=== PATIENT | male | born 1960 | race Caucasian/White ===

== ENCOUNTER 2019-03-04 07:39 | Day surgery (SDC) | payer OTHER ==
[2019-03-04] MEDS ORDERED: Morphine 4 MG/ML VIAL ONE (08:20)
[2019-03-04] MEDS ORDERED: Ondansetron PF 4 MG/2 ML Vial ONE (08:20)
[2019-03-04] MEDS ORDERED: Multivitamins, Adult 10 ML, Thiamine HCl 100 MG, Folic Acid 1 MG in Dextrose 5 %-0.45 %... IV SCH (09:00)
--- NOTE | 2019-03-04 09:27 | RAD ---
LEFT ANKLE 3 VIEWS: HISTORY: Fall, left ankle deformity and pain. FINDINGS/IMPRESSION: A trimalleolar fracture and dislocation is seen at the ankle joint. POS: TPC
[2019-03-04] MEDS ORDERED: Propofol 1,000 MG/100 ML VIAL IV ONE (09:41)
[2019-03-04] MEDS ORDERED: PROPOFOL 20 ML ONE (09:42)
[2019-03-04 09:43] LABS: #Basophils 0.1 thou/uL (0.0-0.2); #Eosinphils 0.1 thou/uL (0.0-0.7); #Lymphocytes 0.9 thou/uL (1.20-3.40); #Monocytes 0.8 thou/uL (0.11-0.59); #Neutrophils 8.1 thou/uL (1.40-6.50); %Basophils 0.7 % (0.0-1.0); %Eosinophils 0.5 % (0.0-10.0); %Lymphocytes 9.4 % (21.0-51.0); %Monocytes 8.2 % (0.0-10.0); %Neutrophils 81.2 % (42.0-75.0); Hemoglobin 12.3 g/dL (14.0-18.0); Mean Corpuscular HGB CONC 34.8 g/dL (32.0-36.0); Mean Corpuscular Hemoglobin 41.2 pg (27.0-31.0); Mean Platelet Volume 8.1 fL (7.4-10.4); Platelet Count 170 thou/uL (130-400); RBC Distribution Width 12.4 % (11.5-14.5); Red Blood Cell (RBC) Count 2.99 mill/uL (4.70-6.10); White Blood Cell (WBC) Count 9.9 thou/uL (4.8-10.8)
[2019-03-04] MEDS ORDERED: Propofol 500 MG/50 ML VIAL ONE (09:43)
[2019-03-04 09:46] LABS: INR-International Normal Ratio 1.2; PTT 34.4 SEC (22.9-36.1); Prothrombin Time 15.1 SEC (12.0-14.7)
[2019-03-04 09:59] LABS: ALT (SGPT) 43 U/L (8-55); AST (SGOT) 118 U/L (5-34); Albumin 3.9 g/dL (3.5-5.0); Alkaline Phosphatase 91 U/L (40-150); Anion Gap 16 mmol/L (10-20); BUN (Urea Nitrogen) 5 mg/dL (8.4-25.7); Calc. Creatinine Clearance 0 mL/min (70-130); Calcium 8.4 mg/dL (7.8-10.44); Carbon Dioxide 22 mmol/L (22-29); Chloride 99 mmol/L (98-107); Estimated GFR-MDRD Greater than 90; Globulin 2.9 g/dL (2.4-3.5); Glucose 100 mg/dL (70-105); MDiff Complete? YES; Macrocytosis MODERATE=16-30 cells (100X) (0-5/hpf); Platelet Morphology Comment Appears Adequate; Potassium 3.9 mmol/L (3.5-5.1); Protein, Total 6.8 g/dL (6.0-8.3); Sodium 133 mmol/L (136-145)
--- NOTE | 2019-03-04 10:39 | RAD ---
Exam:3 views left ankle HISTORY: Fracture. Deformity. Status post reduction. COMPARISON: None FINDINGS: Interval placement of external cast at the level of the left ankle. Tried malleolus fractur e is redemonstrated. Mild step-off deformity of the medial and lateral malleolus is noted. Associated soft tissue swelling. Alignment has improved. IMPRESSION: 1. Interval reduction with improved alignment. 2. Interval placement of external cast
[2019-03-04] MEDS ORDERED: Morphine 2 MG/ML SYRINGE ONE (10:48)
[2019-03-04] MEDS ORDERED: Fentanyl 100 MCG/2 ML VIAL ONE ×2 (12:24→12:44)
[2019-03-04] MEDS ORDERED: Midazolam HCl 2 mg/2 ml Vial ONE (12:24)
[2019-03-04] MEDS ORDERED: Clindamycin/D5W 900 mg/50 ml Premix Bag ONE (12:28)
[2019-03-04] MEDS ORDERED: Bupivacaine HCl 0.5%/Epinephrine 1:200,000/PF 30 ml Vial ONE (13:05)
--- NOTE | 2019-03-04 13:49 | RAD ---
Exam: XR Ankle Lt 3 View STANDARD HISTORY: ORIF left ankle COMPARISON: 03/04/2019. Fluoroscopy: Total fluoroscopy time is 7.4 seconds with total dose of 0.26 mGy. FINDINGS/IMPRESSION: 2 intraoperative fluoroscopic images of the left ankle are submitted for interpretation. Provided stuart ges demonstrate a lateral plate and screws transfixing the previously seen fracture of the left fibula with 2 screws transfixing the fracture involving the medial malleolus. There is improvement in alignment of fracture fragments. There has also been interval reduction of previously noted dislocation at the tibiotalar joint. Fracture involving the posterior malleolus is again noted, but t here is improved alignment of the fracture. Correlation with intraoperative findings is recommended.
--- NOTE | 2019-03-04 15:35 | OP ---
DATE OF PROCEDURE: 03/04/2019 OPERATION: Open reduction and internal fixation of left trimalleolar ankle fracture. PREOPERATIVE DIAGNOSIS: Left trimalleolar ankle fracture. POSTOPERATIVE DIAGNOSIS: Left trimalleolar ankle fracture. COMPLICATIONS: None. ESTIMATED BLOOD LOSS: Minimal. GASOLINE ENGINE ASSEMBLER: Arnold Fuentes PA-C IMPLANT: Synthes 6-hole 1/3 tubular plate with multiple nonlocking screws and two 4.0 partially-threaded cancellous screws. INDICATIONS: Mr. Resendez is a 58-year-old male who fell and fractured his ankle. He was indicated for open reduction and internal fixation to restore anatomic alignment and promote healing and prevent complications. Risks have been reviewed. He elected to proceed with the operation. DESCRIPTION OF PROCEDURE: Mr. Resendez was identified in the preoperative holding area. His correct extremity was marked. He was carried to the operating room. He was positioned supine. General anesthesia was induced. A multidisciplinary time-out was performed. The left lower extremity was prepped and draped in sterile fashion. We began the procedure with a lateral approach to the fibula, dissecting down through the subcutaneous tissues to the fascia, which was opened. We exposed the bony fracture. We cleared the bony edges. We reduced the fracture into an anatomic position. A 6-hole plate was placed, 6 screws were placed, locking the plate to the bone. We took x-ray images, confirming this. At this point, we then moved to the medial side, made an incision over the medial malleolus. We dissected down through the subcutaneous tissues to the medial malleolar fracture fragment. We irrigated and reduced the fracture back into its anatomic position. We then placed two 4.0 partially- threaded screws, holding our reduction. We took x-ray images again. There were no complications. We thoroughly irrigated with copious lavage. At this point, we closed with 2-0 Vicryl suture followed by 3-0 nylon and a sterile dressing and a splint was placed. Job ID: [id number]
[2019-03-04] MEDS ORDERED: HYDROcodone/Acetaminophen 5/325 mg Tablet ONE (16:21)
== END 2019-03-04 17:20 | disposition home or self-care (01) ==
LOC: ERS 07:39 → SDC 11:53 → ERS 11:54 → SDC 17:20
PROVIDERS: ATTEND Orthopaedic Surgery
PROC: 0QSH04Z Reposition Left Tibia with Internal Fixation Device, Open Approach (ICD-10-PCS; principal; 2019-03-04)
DX: S82.852A Displaced trimalleolar fracture of left lower leg, initial encounter for closed fracture (principal); E78.5 Hyperlipidemia, unspecified; I10 Essential (primary) hypertension; F17.220 Nicotine dependence, chewing tobacco, uncomplicated; Z88.0 Allergy status to penicillin; W01.0XXA Fall on same level from slipping, tripping and stumbling without subsequent striking against object, initial encounter
CPT/HCPCS: 76000; 80053; 84484; 85025; 85610; 85730; 93005; C1713; J0670; J2250; J2270; J2405; J2704; J3010; J3411; J3490; J7042

== ENCOUNTER 2020-05-24 19:27 | Inpatient (IN) | payer OTHER ==
[~2020-05-24 19:27] MED LIST: Iopamidol-370 76% 500 ML 1 ML ONE
--- NOTE | 2020-05-24 21:11 | CT ---
CT OF THE ABDOMEN AND PELVIS 05/24/20 HISTORY: Jaundice, abdominal distention, liver disease. TECHNIQUE: Axial CT imaging at 5 mm intervals from the lung bases through the pubic symphysis with IV contrast. Coronal and sagittal reformatted imaging obtained. FINDINGS: There are subtle patchy areas of focal pulmonary parenchymal opacity/ground glass opacity with mass- like configuration within the inferior right lower lobe on axial image 11 and within the superior asp ects of the right lower lobe on image 1. Similar patchy opacity noted within the right middle lobe on image 4. No free intraperitoneal air or fluid is seen. The hepatic parenchyma is heterogeneous and d emonstrates peripheral irregularity suggesting cirrhosis. Numerous tiny hypodense nodules are noted w ithin the liver, too small to characterize. Splenic calcifications are noted. Numerous varices are no hernan within the gastrohepatic ligament, the paraesophageal region, and in the region of the splenic hi lum. The left renal vein is dilated suggesting a splenorenal shunt on the left. The gallbladder conta ins significant debris/sludge as well as areas of calcified stones. Gallbladder is not optimally asse ssed on this examination. There may be mild hazy increased density within the fat adjacent to the ga llbladder which could signify gallbladder inflammatory change or could be related to hepatocellular d isease. The adrenal glands and the kidneys appear grossly unremarkable. The large and small bowel is not optimally assessed without oral contrast media. There are a few scat tered diverticula identified within the sigmoid colon with no evidence for diverticulitis. No evidenc e for appendicitis is seen. There is no evidence for bowel obstruction. Intrahepatic and extrahepatic portal vein is patent. Splenic vein and superior mesenteric vein are patent. Numerous varices are noted within the retroperi toneum, especially in the left para-aortic region. No abdominal or pelvic lymphadenopathy. Review of the osseous structures demonstrates no worrisome lytic or blastic bone lesion. IMPRESSION: 1. Cirrhotic configuration of the liver with multifocal upper abdominal varices. 2. Abnormal appearance of the gallbladder with sludge and stones. If there is concern for acute cholecystitis, ultrasound suggested. Stranding of the fat adjacent to the gallbladder may be present which could signify gallbladder inflammatory change or could simply be related to hepatocellular dise ase. 3. Areas of ground glass opacity are noted within the partially imaged right lung base. Findings may signify nonspecific infectious pneumonitis, including COVID 19. Clinical correlation is essentia l. In addition, a dedicated chest CT is advised for full assessment. Neoplasia is not excluded. Code T POS: [id number]
[2020-05-24] MEDS ORDERED: chlordiazePOXIDE HCl 25 MG CAP ONE (23:33)
--- NOTE | 2020-05-24 23:34 | ULT ---
Exam: Right upper quadrant ultrasound: HISTORY: Jaundice, abdominal distention. Acute liver failure. COMPARISON: CT abdomen on 05/24/2020 FINDINGS: Liver: Enlarged measuring 18 cm in craniocaudal dimensions. The liver is increased in echogenicity an d overall heterogeneous in appearance which was also noted on CT examination. Gallbladder: There is echogenic lobulated material within the dependent portion of the gallbladder candice men. This finding may be related to tumefactive sludge as opposed to actual gallbladder mass. The gallbladder wall is mildly thickened measuring 0.4 cm in thickness. No pericholecystic fluid is ident ified. No sonographic Merino's sign was elicited during the exam. Common bile duct: The common duct is normal in caliber measuring 0.6 cm in diameter. Pancreas: Limited visualized portions of the pancreas demonstrate a normal sonographic appearance. Right kidney: Right kidney demonstrates a normal sonographic appearance. The right kidney measures 1 0.9 cm in length. IVC: The visualized IVC demonstrates a normal sonographic appearance. Main portal vein was imaged and on Doppler evaluation, there does appear to be hepatofugal flow in th e main portal vein. IMPRESSION: 1. Hepatomegaly with findings suggestive of fatty infiltration. In addition, there is generalized het erogeneity of the liver. The heterogeneity was present on prior CT exam with numerous tiny hypodensities seen within the liver on CT exam. There is suggestive of cirrhotic morphology of the li tray on CT exam which is less well delineated on ultrasound evaluation. 2. Echogenic material within the dependent portion of the gallbladder lumen. This may be secondary to tumefactive sludge as opposed to gallbladder mass. Calculi seen in the gallbladder lumen on CT exam are not well delineated on this exam. Gallbladder wall is slightly thickened. Short interval fol low-up ultrasound examination of the gallbladder is recommended. 3. Hepatofugal flow in the main portal vein suggesting portal hypertension.
[2020-05-24 23:59] LABS: Troponin I 0.026 ng/mL (< 0.028)
[2020-05-25] MEDS ORDERED: Lorazepam 1 MG TAB PO PRN (00:36)
[2020-05-25] MEDS: Sodium Chloride 0.9% 1,000 ML IV SCH ×2 (01:07→21:21)
[2020-05-25 02:19] LABS: Troponin I 0.019 ng/mL (< 0.028)
--- NOTE | 2020-05-25 02:39 | HP ---
REASON FOR ADMISSION: Jaundice. HISTORY OF PRESENT ILLNESS: This is a 59-year-old male patient, who is known to be an alcoholic. Recently diagnosed with two types of rash, one on his right lower extremity considered as a fungal infection, treated with fluconazole and a rash that started in his left upper quadrant area extending to the back, also right upper quadrant area extending to the back as well considered as possibly zoster. He was started on acyclovir. He did not note any much improvement in the rash on his legs, so he has used clotrimazole cream, which he said it helped. Then, he was noted to be more jaundiced. He was prompted by his girlfriend's friend to present to the ER where he was found to have elevated LFTs. Subsequently, transferred to our emergency room. The patient denies any fevers or chills. Denies any abdominal discomfort. Denies any melena or hematemesis. I did review his records and his last admission to the hospital was in February 2019 for left trimalleolar ankle fracture, status post open reduction and internal fixation. PAST MEDICAL HISTORY: 1. High blood pressure. 2. Depression. 3. Allergic rhinitis. SOCIAL HISTORY: He dips, does not smoke cigarettes. He drinks alcohol on a daily basis. He is an alcoholic. His last drink was this morning. ALLERGIES: TO PENICILLIN. FAMILY HISTORY: Reviewed, found to be negative for premature coronary artery disease. REVIEW OF SYSTEMS: All systems reviewed except the above mentioned, found to be negative. PHYSICAL EXAMINATION: GENERAL: Awake, alert, oriented, does not appear in distress. VITAL SIGNS: His blood pressure is 142/74, heart rate of 102, temperature is 98.4, saturating 99% on room air. HEENT: Head is nontraumatic, normocephalic. Pupils equal, reactive. Extraocular movements are intact. He does have icteric sclera, moderately injected conjunctivae. Oral mucosa normal. Nasal mucosa normal. NECK: Supple. No adenopathy. No murmur. Thyroid not palpable. Trachea is midline. No supraclavicular adenopathy. HEART: S1, S2 regular. No murmur. No gallop. No friction rubs. No displacement of PMI. LUNGS: Clear to auscultation bilaterally. No wheezes, rhonchi, or crackles. ABDOMEN: Bowel sounds are positive. Abdomen is distended, but nontender. EXTREMITIES: He does have 1+ pitting edema in bilateral extremities. SKIN: He does have a flat macular rash around the right ankle area. It is not warm to touch. The skin appears to be dry in regards of the rash on the abdominal area does seem bilateral from the upper quadrants extending to the back, more so on the left than the right. It is confluent and macular in nature. Does not feel warm to touch. I do not see any vesicles or the lesions, but the patient claims that initially he had vesicular rash. NEURO: Cranial nerves II through XII within normal limits. Normal motor function. Normal sensory reflexes. LABORATORY DATA: Blood work shows WBC of 10.4, hemoglobin of 7.8, platelets of 85, previous hemoglobin was 13.7. Sodium 130, potassium 3.9, bicarb of 21, lactic acid of 3.8, total bilirubin 12.8, AST 68, ALT 29. BNP 397.2. Urinalysis shows ketones, large bilirubin. Hepatitis profile done in July, was negative. A chest x-ray shows mild vascular prominence, 10 mm nodular density near the left hilum that should have further followup once the patient is out of the acute phase. Abdominal ultrasound shows hepatomegaly with findings suggestive of fatty infiltration, generalized heterogeneity of the liver, suggestion of cirrhosis of the liver. Echogenic material within the dependent portion of the gallbladder lumen with calculi seen in the gallbladder lumen on CT exam. Gallbladder wall slightly thickened. CT of the abdomen shows cirrhotic configuration of the liver with multifocal upper abdominal varices. Abnormal appearance of the gallbladder with sludge and stone. If there is concern for acute cholecystitis, ultrasound suggested. Stranding of the fat adjacent to the gallbladder may be present, which could signify gallbladder inflammatory changes or could simply be related to hepatocellular disease. Area of ground-glass opacity is noted within the partially imaged right lung base may signify a nonspecific infectious pneumonitis, including COVID-19. Clinical correlation is essential. In addition, a dedicated chest CT is advised for full assessment. Neoplasia is not excluded. ASSESSMENT AND PLAN: This is a 59-year-old male patient, presenting with what appears to be liver failure in the setting of recent fluconazole intake and continued alcohol abuse. Neurology: The patient will be maintained on his antidepressive agents. Pulmonary: The patient does not have any pulmonary symptoms. Nevertheless, his CT of the abdomen did mention multiple abnormalities at the bases of his lungs, also possible nodule on chest x-ray. We will do a CT of the chest without contrast to further investigate these findings. Because of his alcoholism, he will be on IV thiamine, multivitamin and folic acid. We will have him on Ativan as needed for signs of withdrawal. Hematology: The patient appears to be anemic compared to his last blood work done in July, although he denies any evidence of melena or hematemesis. It is possible that he has been having gastrointestinal bleed. We will ask GI to assess him in the morning for the further input about his liver failure and his anemia or then he need to be scoped or not. On the other hand, his imaging did show gallbladder disease, possibly indicating cholecystitis, but clinically he is not exhibiting any symptoms that can be attributed to possible cholecystitis, so the findings could be possibly due to his liver cirrhosis/alcoholic hepatitis. Surgery was consulted by the ER physician and they will see him in the morning. No therapy for now was recommended. In regard of his rash, it does seems that he might have dermatitis. We will have him on hydrocortisone cream. I do not believe that he does have a fungal rash and I would not continue fluconazole since it might cause worsening of his LFTs. In regards of the rash in the abdominal area, it is possible that it is zoster. For that reason, we will resume acyclovir. It seems that the rash is healing and hydrocodone might help as well. Renal System, Electrolytes: The patient does have elevated lactic acid. We will hydrate him and then we will recheck his lactic acid in the morning. The patient will be a full code. Job ID: [id number]
[2020-05-25] MEDS ORDERED: Ondansetron ODT 4 MG TAB SL PRN (03:00)
[2020-05-25] MEDS ORDERED: Acetaminophen 325 MG TAB PO PRN (03:00)
[2020-05-25] MEDS ORDERED: Ondansetron PF 4 MG/2 ML Vial IVP PRN (03:00)
[2020-05-25 06:13] LABS: INR-International Normal Ratio 2.1; Prothrombin Time 23.9 sec (12.0-14.7)
[2020-05-25 06:14] LABS: PTT 52.8 sec (22.9-36.1)
[2020-05-25] MEDS ORDERED: Lorazepam 1 MG TAB ONE (06:20)
[2020-05-25 06:27] LABS: Lactic Acid 1.7 mmol/L (0.5-2.2)
[2020-05-25 06:31] LABS: ALT (SGPT) 25 U/L (8-55); AST (SGOT) 52 U/L (5-34); Albumin 3.2 g/dL (3.5-5.0); Alkaline Phosphatase 75 U/L (40-110); Anion Gap 14 mmol/L (10-20); BUN (Urea Nitrogen) 11 mg/dL (8.4-25.7); Bilirubin, Total 12.1 mg/dL (0.2-1.2); Calc. Creatinine Clearance 0 mL/min (70-130); Calcium 8.1 mg/dL (7.8-10.44); Carbon Dioxide 23 mmol/L (22-29); Chloride 95 mmol/L (98-107); Estimated GFR-MDRD Greater than 90; Globulin 3.6 g/dL (2.4-3.5); Glucose 136 mg/dL (70-105); Protein, Total 6.8 g/dL (6.0-8.3); Sodium 128 mmol/L (136-145)
[2020-05-25 06:34] LABS: Band 6 % (5-11); Eosinophils 3 % (0-10); Hemoglobin 7.1 g/dL (14.0-18.0); Lymphocytes 14 % (21-51); MDiff Complete? YES; Macrocytosis SLIGHT = 6-15 cells (100X) (0-5/hpf); Mean Corpuscular HGB CONC 32.8 g/dL (32.0-36.0); Mean Corpuscular Hemoglobin 46.5 pg (27.0-31.0); Mean Platelet Volume 8.6 fL (7.4-10.4); Monocytes 14 % (0-10); Neutrophil 63 % (42-75); Platelet Count 83 thou/uL (130-400); Platelet Morphology Comment Appears Decreased; RBC Distribution Width 15.1 % (11.5-14.5); Red Blood Cell (RBC) Count 1.53 mill/uL (4.70-6.10); Target Cells SLIGHT = 2-5 cells (100X) (0-1/hpf); White Blood Cell (WBC) Count 8.7 thou/uL (4.8-10.8)
--- NOTE | 2020-05-25 08:00 | CT ---
PRELIMINARY REPORT/[facility]/EMERGENCY AFTER HOURS PROCEDURE: EXAM: CT Chest Without Intravenous Contrast. CLINICAL HISTORY: Pt had a CT abd/pel done. CR report recommends dedicated CT Thorax exam. Changes at the lung bases on abd CT TECHNIQUE: Axial computed tomography images of the chest without intravenous contrast. COMPARISON: None provided. FINDINGS: LUNGS: Patchy groundglass opacities throughout the left upper lobe and right lung with more rounded opacitie s at the right lung base. Findings are compatible with multifocal pneumonia. PLEURAL SPACES: No pleural effusion. No pneumothorax. HEART AND MEDIASTINUM: Small coronary artery calcifications are present. The heart is normal in size. Calcified right hilar and mediastinal lymph nodes. LYMPH NODES: No lymphadenopathy. CHEST WALL AND UPPER ABDOMEN: Splenic calcifications are present, likely representing prior granulomatous disease. Contrast within the renal collecting systems, likely from prior CT abdomen and pelvis. BONES: No acute osseous abnormality. IMPRESSION: Patchy groundglass opacities throughout the left upper lobe and right lung with more rounded opacitie s at the right lung base. Findings are compatible with multifocal pneumonia. High confidence featur es of COVID-19 (in the appropriate clinical setting). Although other processes can cause a similar pa ttern, consider viral testing for confirmation of this possibility. ELECTRONICALLY SIGNED BY: Natacha Banks MD May 25, 2020 1:13:32 AM PRESS P[employer]ER This report is intended for review by the ordering physician only, in accordance of law. If you recei ve this report in error, please call [facility] at [phone]. FINAL REPORT EMERGENCY AFTER HOURS CT CHEST WITHOUT CONTRAST: There are bilateral patchy ground-glass type infiltrates which are more extensive in the left upper l obe, but are also seen in the right upper lobe and right lower lobe. I am in agreement with the preliminary report issued by [facility]. POS: AGW
[2020-05-25] MEDS ORDERED: Ibuprofen 200 MG TAB ONE (08:09)
[2020-05-25] MEDS: Ibuprofen 600 MG TAB PO PRN (08:17)
[2020-05-25 13:00] LABS: SARS-CoV-2 MS2 Positive; SARS-CoV-2 N Gene Negative; SARS-CoV-2 S Gene Negative; SARS-CoV-2 by NAA Not Detected (NotDetected); SARS-CoV-2 orf1ab Negative
--- NOTE | 2020-05-25 15:59 | PDOC.BPN ---
- Brief Progress Note Encounter Date: 05/25/20 Encounter Time: 15:57 59-year-old patient who is a known alcoholic was admitted to the hospital due to severe jaundice after he used an antifungal cream for rash on his legs. He arrived to the hospital where he was noted to be profoundly jaundiced with a total bilirubin of 12. His CT of the abdomen and pelvis showed evidence of liver cirrhosis, suspected gallbladder pathology and may be pneumonia with COVID-19 being in the differential. Placement in right now was that he was having withdrawal symptoms from alcohol. He is on the SHAN protocol.
[2020-05-25] MEDS: Lorazepam 1 MG TAB PO SCH ×2 (16:29→21:20)
[2020-05-25 16:30] LABS: Reticulocyte Count 5.1 % (0.5-1.5)
[2020-05-25 16:33] LABS: Hemoglobin 6.5 g/dL (14.0-18.0); Mean Corpuscular HGB CONC 33.6 g/dL (32.0-36.0); Mean Corpuscular Hemoglobin 46.5 pg (27.0-31.0); Mean Platelet Volume 9.1 fL (7.4-10.4); Platelet Count 76 thou/uL (130-400); RBC Distribution Width 15.1 % (11.5-14.5); White Blood Cell (WBC) Count 8.8 thou/uL (4.8-10.8)
[2020-05-25 16:38] LABS: Bilirubin Moderate (Negative); Blood, Urine Small (Negative); Glucose, Urine (Dipstick) 100 mg/dL (Negative); Ketone, Urine Negative (Negative); Leukocyte Negative (Negative); Nitrite Negative (Negative); Protein, Urine (Dipstick) Negative (Neg-Trace); Urobilinogen > or = 8.0 mg/dL (Less than 2)
[2020-05-25 16:44] LABS: Clarity Clear (Clear)
[2020-05-25 16:48] LABS: Bilirubin, Direct 3.5 mg/dL (0.1-0.3)
[2020-05-25 16:52] LABS: Bacteria/HPF None Seen HPF (None Seen); Squamous Epithelial None Seen HPF (0-3); WBC/HPF 0-3 HPF (0-3)
[2020-05-25 16:54] LABS: Urine Culture Reflex No No
[2020-05-25 17:00] LABS: Anisocytosis SLIGHT = 6-15 cells (100X) (0-5/hpf); Band 15 % (5-11); Eosinophils 15 % (0-10); Lymphocytes 8 % (21-51); MDiff Complete? YES; Macrocytosis MODERATE=16-30 cells (100X) (0-5/hpf); Monocytes 9 % (0-10); Neutrophil 52 % (42-75); Ovalocytes SLIGHT = 2-5 cells (100X) (0-1/hpf); Platelet Morphology Comment Appears Decreased; Polychromasia MODERATE = 3-4 cells (100X) (0-2/hpf); Schistocytes SLIGHT = 2-5 cells (100X) (0-1/hpf)
[2020-05-25] MEDS: Hydrocortisone 1% Cream 1.5 GM Packet TOP SCH ×2 (19:50→22:09)
[2020-05-25] MEDS: Folic Acid 1 MG TAB PO SCH (19:50)
[2020-05-25] MEDS: Multivitamin W/ Minerals 1 TAB PO SCH (19:51)
[2020-05-25] MEDS: Hydrocortisone 1% Cream 30 GM TUBE TOP SCH (22:11)
[2020-05-26] MEDS: Lorazepam 1 MG TAB PO SCH ×4 (03:34→22:08)
--- NOTE | 2020-05-26 08:25 | CON ---
DATE OF CONSULTATION: REASON FOR CONSULTATION: 1. Painless jaundice. 2. Severe anemia with no history of GI bleeding. HISTORY OF PRESENT ILLNESS: Oli Resendez is a 59-year-old male, who is a regular patient of Dr. Longo in [place]. The patient had history of chronic alcohol abuse over the years. He admits to drinking a large amount of alcohol throughout the day. The patient's last drink was yesterday morning. The patient denies any abdominal pain, nausea, or vomiting. No hematemesis. No history of hematochezia, back tarry stool, etc. No history nose bleeding, hematuria, or bleeding from the gums. The patient apparently was found to be deeply jaundiced. He was brought to the hospital yesterday. The patient had no right upper quadrant pain, fever, or chills. No abdominal pain. No nausea or vomiting. Going over the [facility], I have discovered that he was slightly jaundiced in 2019. At that time, his bilirubin was 2.4. He had mildly elevated LFTs consistent with alcoholic liver disease. The patient was never told of any liver disease from before. Although he has jaundice, his other liver function tests were basically normal. CEA is slightly elevated. He had abdominal sonogram and abdominal CAT scan. Both imaging studies show evidence of what appears to be liver cirrhosis and he has some echogenic material in gallbladder indicative of possibly gallstones or possibly biliary sludge. His common bile duct is normal. The patient also has anemia on admission. He is pancytopenic. His hemoglobin on admission showed cytopenia. His WBC count was 10,400, hemoglobin 7.8, hematocrit 23.3, MCV 133 and today is 142, platelet count is 83,000, polymorphs 63, lymphocytes 14, monocytes 14. mild anemia before, but it was in the range of around 12.3, 12.7, and 13.1. He also had elevated MCV in the previous lab studies. His platelet count was normal before until this admission. He tells me he had seen Dr. Tony Zavala a year ago and Dr. Longo saw him because of anemia. Dr. Zavala told him the anemia was because of alcoholic liver disease and advised to take some vitamins and also folic acid. The patient had no relevant history. Other clinical history includes recent onset rash over the lower extremity and also over the right flank and back. ALLERGIES: PENICILLIN. SOCIAL HISTORY: He is . He chews tobacco. Does not smoke cigarettes. History of chronic alcohol abuse over the years and drinks as much as he can. At times, he drinks as much as a gallon of whiskey over a 3-day period as per the . He also drank beer. No history of drug abuse. MEDICAL ILLNESS: 1. Hypertension. 2. Depression. 3. Allergic rhinitis. SURGERIES: Left ankle fracture, surgery by Dr. Bang in February of 2019. FAMILY HISTORY: There is no family history of liver disease. No family history of cancer, stroke, or heart disease. MEDICATIONS: Reviewed. REVIEW OF SYSTEMS: 10-point system review; CONSTITUTIONAL: No history of fever or chills. No weight loss. No history of any fatigue, tiredness, or change in exercise tolerance. HEENT: Head, no chronic headache, no syncope. Eyes, no diplopia, no impaired vision. ENT, no hearing loss. No nose bleed. No sore throat. NECK: No stiffness or any limitation of movement. LUNGS: No chronic coughing. No hemoptysis. No dyspnea. CARDIOVASCULAR SYSTEM: No chest pain. No palpitation. No dyspnea, orthopnea, PND. GASTROINTESTINAL: No abdominal pain. No nausea or vomiting. No history of hematochezia or any melena. GENITOURINARY: No dysuria, hematuria, or frequency of urination. MUSCULOSKELETAL: Nonrelevant. NEUROENDOCRINE: Nonrelevant. PSYCHIATRY: Nonrelevant. PHYSICAL EXAMINATION: GENERAL: He is awake, alert, communicative. He is deeply jaundiced. He has mild tremors of both hands. VITAL SIGNS: Stable. He is afebrile. Pulse is 100, blood pressure is 116/57. He is deeply jaundiced. His temperature spiked to 101 this morning. NECK: Supple. No adenitis or thyromegaly noted. CARDIOVASCULAR SYSTEM: Normal heart sounds. LUNGS: Clear to auscultation. ABDOMEN: Soft and nondistended. Liver is palpable below the right costal margin nontender. Spleen not palpable. No masses felt. Bowel sounds normal. EXTREMITIES: Reveal edema and also has erythematous skin rash over the lower extremities. He also had some skin rash over the right flank going to the back. This is something new over the last few days. CLINICAL IMPRESSION: 1. Alcoholic liver disease-liver cirrhosis. 2. Jaundice with near normal liver function tests, possibly includes hemolysis with drug-induced elevation of bilirubin level. 3. Anemia, profound. Anemia is macrocytic, MCV 142. Most likely has folate deficiency because of alcohol abuse. However, hemolysis has been ruled out and other causes like bone marrow dysfunction has been ruled out. 4. Chronic alcohol abuse. 5. Hypertension. 6. Allergic rhinitis. RECOMMENDATIONS: 1. Stool for Hemoccult blood testing x3. 2. Await hematology input from Dr. Tony Zavala. He has seen Dr. Tony Zavala before and I did talk to Dr. Zavala who will see the patient later on today. 3. Follow up H and H and transfuse p.r.n. 4. Detox regimen including folic acid, thiamine, and also Ativan 1 mg every 6 hours. 5. Possible endoscopy studies in the next couple of days. Job ID: [id number]
[2020-05-26] MEDS: Folic Acid 1 MG TAB PO SCH (09:57)
[2020-05-26] MEDS: Multivitamin W/ Minerals 1 TAB PO SCH (09:57)
[2020-05-26] MEDS: Hydrocortisone 1% Cream 30 GM TUBE TOP SCH ×2 (09:58→20:17)
[2020-05-26 12:46] LABS: Iron 90 ug/dL (65-175); Iron Binding Capacity, Total 89 mcg/dL (261-462)
[2020-05-26] MEDS: Ibuprofen 600 MG TAB PO PRN (15:52)
--- NOTE | 2020-05-26 16:41 | PDOC.HOSPP ---
- Subjective Encounter Date: 05/26/20 Encounter Time: 16:36 Subjective: Patient seen and evaluated. This 59-year-old male admitted for painless jaundice. He was evaluated earlier by GI services. He is now profoundly anemic with a hemoglobin down to 6. I went ahead and ordered for 2 units of packed red cells transfusion. He is sleepy but easily arousable. His son was at the bedside when I visited. Patient does follow-up with her gas leak tester and he has been consulted by the GI service. CT abdomen and pelvis done showed evidence of liver cirrhosis. There is also a concern for gallbladder stones and sludge. An ultrasound of his gallbladder was equivocal. I would like to get a HIDA scan. His total bilirubin is high and most of his LFTs are rather normal. His AST was 52 and ALT was 32. I would like to check his amylase and lipase levels. - Objective Vital Signs & Weight: Vital Signs (12 hours) Temp Pulse Pulse Resp BP BP Pulse Ox 05/26/20 15:52 101.3 F H 05/26/20 15:35 99.0 F 124 H 24 H 133/67 93 L 05/26/20 15:23 99.0 F 124 H 24 H 133/67 93 L 05/26/20 11:59 99 F 117 H 20 130/64 93 L 05/26/20 08:00 98 Weight Weight 211 lb 1 oz I&O: 05/25/20 05/26/20 05/27/20 06:59 06:59 06:59 Intake Total 1190 250 Balance 1190 250 Result Diagrams: 05/25/20 16:20 05/25/20 05:49 Radiology Reviewed by me: Yes EKG Reviewed by me: Yes Hospitalist ROS - Review of Systems ROS unobtainable: due to mental status Constitutional: reports: chills, weakness, malaise Respiratory: reports: shortness of breath, SOB with excertion Gastrointestinal: reports: nausea, abdominal pain Neurological: reports: weakness - Medication Medications: Active Medications Generic Name Dose Route Start Last Admin Trade Name Freq PRN Reason Stop Dose Admin Folic Acid 1 mg 05/25/20 09:00 05/26/20 09:57 Folic Acid 1 Mg Tab PO 1 mg DAILY LAURIE Administration Hydrocortisone/Aloe 1.5 gm 05/25/20 21:00 05/26/20 09:58 Hydrocortisone 1% Cream 30 Gm Tube TOP 1 applic BID LAURIE Administration Thiamine HCl 100 mg/ Sodium 51 mls @ 100 mls/hr 05/26/20 09:00 05/26/20 12:12 Chloride IVPB 51 mls Q24HR LAURIE Administration Sodium Chloride 1,000 mls @ 50 mls/hr 05/25/20 00:45 05/25/20 21:21 Normal Saline 0.9% IV 1,000 mls .Q20H LAURIE Administration Levofloxacin 750 mg/ Device 150 mls @ 100 mls/hr 05/25/20 16:00 05/25/20 16:29 IVPB 150 mls Q24HR LAURIE Administration Ibuprofen 600 mg 05/25/20 07:55 05/26/20 15:52 Ibuprofen 600 Mg Tab PO 600 mg Q6H PRN Administration Fever>101/(Mi/Mod/Sev) Pain Iron/Minerals/Multivitamins 1 tab 05/25/20 09:00 05/26/20 09:57 Multivitamin W/ Minerals 1 Tab PO 1 tab DAILY LAURIE Administration Lorazepam 1 mg 05/25/20 16:00 05/26/20 15:52 Lorazepam 1 Mg Tab PO 1 mg 0400,1000,1600,2200 LAURIE Administration Sodium Chloride 10 ml 05/25/20 09:00 05/26/20 09:58 Flush - Normal Saline 10 Ml Syringe IVF Not Given Q12HR LAURIE - Exam General Appearance: NAD, ill appearing Eye: PERRL ENT: normocephalic atraumatic, moist mucosa Neck: supple, no lymphadenopathy Heart: RRR, no murmur Respiratory: CTAB, normal percussion Gastrointestinal: soft, non-distended, distended Extremities: 1+ LE edema Neurological: cranial nerve grossly intact, normal sensation to touch, no weakness, no focal deficits Musculoskeletal: generalized weakness Psychiatric: somnolent Hosp A/P - Plan #1. Painless jaundice. Etiology appears to be secondary to chronic alcohol abuse. His CT abdomen and pelvis showed evidence of chronic liver disease. He does have stigmata of liver cirrhosis. We appreciate GI evaluation. CT abdomen and pelvis obtained on admission showed evidence of liver disease. He also has some gallbladder stones and sludge. He had fever earlier on admission. I wonder if he does have true acute cholecystitis. I will consider HIDA scan. I will make further recommendation pending further work-up. 2. Hyperbilirubinemia. Likely secondary to #1 above. 3. Chronic alcohol abuse. Patient is a known alcoholic. He has been counseled. He is on supportive care. 4. Suspected cholelithiasis. I am going to order for HIDA scan. 5. Anemia. Likely acute blood loss versus marrow suppression from chronic alcoholism. At this point we will transfuse him 2 units of packed red cells.
[2020-05-26] MEDS ORDERED: Furosemide 40 MG/4 ML VIAL SLOW IVP SCH (17:00)
[2020-05-26] MEDS ORDERED: Fluticasone Propionate Nasal Spray 16 gm Bottle NASAL PRN (17:40)
[2020-05-26] MEDS ORDERED: Clotrimazole 1% Cream 15 GM TUBE TOP PRN (17:41)
[2020-05-26] MEDS: Acyclovir 400 mg Tablet PO SCH (20:16)
[2020-05-26] MEDS ORDERED: Clotrimazole 1 % Cream 30 GM TUBE TOP PRN (20:23)
[2020-05-26] MEDS ORDERED: Clotrimazole 1% Cream 15 GM TUBE TOP SCH (21:00)
[2020-05-26] MEDS: Clotrimazole 1 % Cream 30 GM TUBE TOP SCH (22:08)
--- NOTE | 2020-05-26 22:46 | CON ---
DATE OF CONSULTATION: REASON FOR CONSULTATION: Macrocytic anemia. HISTORY OF PRESENT ILLNESS: Mr. Resendez is a gentleman with a known history of alcoholism and liver disease, who was admitted to this facility for severe jaundice and a bilirubin of 12. He also had a significant macrocytic anemia with a hemoglobin of 7.1 and an MCV of 142. He had recently tried fungal medication for a rash on his trunk and back. Mr. Resendez is a daily drinker. He has been seen by Dr. Zavala in 2019. His MCV at that time was 118, myelodysplastic syndrome was in the differential, but his lab values improved with reduced EtOH intake and felt that MDS was unlikely at his age, I felt this was all heavy alcohol abuse and liver disease. The patient's sodium was low at 128. His INR was slightly elevated at 2.1. He did undergo a CT scan of his chest, abdomen, and pelvis. He had a cirrhotic liver with multifocal abdominal varices. There was gallbladder sludge. He had a ground-glass opacities in his lung, worrisome for COVID pneumonia. I do not believe he has had any fevers. He also underwent an abdominal ultrasound. His liver was enlarged at 18 cm. He had portal hypertension. He is seen at bedside. His son is present. He is jaundiced. His mentation is depressed. He is on SHAN protocol as he is trembling and having withdrawal symptoms. His last drink was yesterday morning. PAST MEDICAL HISTORY: 1. Heavy alcohol use. 2. High blood pressure. 3. Depression. PAST SURGICAL HISTORY: None. ALLERGIES: PENICILLIN. HOME MEDICATIONS: 1. Bystolic. 2. Desloratadine. 3. Folic acid. 4. Lisinopril. 5. Effexor. FAMILY HISTORY: Noncontributory. SOCIAL HISTORY: , has 2 children, current everyday smoker and drinker. REVIEW OF SYSTEMS: Unable to obtain secondary to depressed mentation. PHYSICAL EXAMINATION: VITAL SIGNS: Temperature is 101.3, pulse is 124, respiratory rate 24, blood pressure is 133/67, he is 93% on room air. GENERAL: This is a jaundiced male, in no acute distress. HEENT: Normocephalic and atraumatic. NECK: Supple. CV: Regular rate and rhythm. He is tachycardic. LUNGS: Clear anterior. ABDOMEN: Distended. He does have palpable hepatomegaly. EXTREMITIES: No clubbing or cyanosis. SKIN: He is jaundiced. NEUROLOGIC: Noted withdrawal tremors in his upper extremities. PERTINENT LABORATORY DATA AND X-RAYS: Current WBCs are 8.8, hemoglobin 6.5, hematocrit 19.4, MCV is 139, platelet count is 76, 52% neutrophils, 15% bands, 8% lymphocytes. His retic count is 5.1. PT is 23.9, INR is 2.1, and PTT is 52.8. Sodium is 128, potassium 4.0, chloride 95, CO2 of 23, BUN is 11, creatinine 0.84, calcium 8.1. Iron is 90, TIBC is 89, ferritin is 3100. Total protein is 12, direct protein is 3.5, AST is 52, ALT is 25, alkaline phosphatase is 75, LDH is 291. Serum total protein is 6.8, albumin 3.2, globulin 3.6, B12 is 1135, folate is 1390. Urine shows moderate bilirubin. He is COVID-19 negative. RADIOLOGY: Per HPI. ASSESSMENT: 1. Macrocytic anemia. 2. Mild thrombocytopenia, likely secondary to portal hypertension. 3. Hyperbilirubinemia, possibly secondary to liver disease. DISCUSSION: The patient presented with elevated bilirubin and severe anemia. Hemolytic anemia is certainly on the differential. However, his LDH is only 291. His retic count is 5.1. He is Brenda negative. Dr. Zavala feels that this is likely secondary to liver disease. His low platelets are due to portal hypertension from his hepatomegaly. Should rule out a GI bleed. Guaiac stools are currently pending. The patient is on SHAN protocol for his withdrawal symptoms. We will continue to monitor his CBC on a daily basis and transfuse as needed. He did receive 1 unit of blood today. His son was updated at bedside. Thank you for the consult. Job ID: [id number]
[2020-05-27] MEDS: Sodium Chloride 0.9% 1,000 ML IV SCH (01:17)
[2020-05-27] MEDS: Lorazepam 1 MG TAB PO SCH ×3 (05:08→16:09)
[2020-05-27 05:21] LABS: ALT (SGPT) 19 U/L (8-55); AST (SGOT) 43 U/L (5-34); Albumin 2.9 g/dL (3.5-5.0); Alkaline Phosphatase 69 U/L (40-110); Anion Gap 14 mmol/L (10-20); BUN (Urea Nitrogen) 14 mg/dL (8.4-25.7); Bilirubin, Total 13.7 mg/dL (0.2-1.2); Calc. Creatinine Clearance 125 mL/min (70-130); Calcium 7.8 mg/dL (7.8-10.44); Carbon Dioxide 22 mmol/L (22-29); Chloride 99 mmol/L (98-107); Estimated GFR-MDRD Greater than 90; Globulin 3.2 g/dL (2.4-3.5); Glucose 97 mg/dL (70-105); Lipase 16 U/L (8-78); Potassium 4.3 mmol/L (3.5-5.1); Protein, Total 6.1 g/dL (6.0-8.3); Sodium 131 mmol/L (136-145)
--- NOTE | 2020-05-27 06:59 | PRG ---
DATE OF SERVICE: 05/26/2020 SUBJECTIVE: This is a 59-year-old male with history of chronic alcohol abuse, hospitalized two days ago with jaundice, painless. History of chronic alcohol abuse over the years and he continues to drink alcohol. He was found to have a bilirubin of 12.5 on admission, but his liver function tests are actually normal except for AST of 52. This is considered alcoholic liver disease. The patient has been taking some antifungal medications because of the skin rash. Also, there was some rash over the right flank and also left calf. Less erythematous. It is more diffuse. He is on acyclovir and clotrimazole cream . The patient is awake and somewhat sleepy. His girlfriend was here yesterday, today she is not here. The patient denied abdominal pain, nausea, or vomiting. I did talk to Dr. Tony Zavala yesterday, asked for a consult on Mr. Resendez and also a consult was put in the [facility] system. I do not see any Hematology evaluation until now. The patient's blood count has been dropping down further from 7.1 to 6.5. The hospitalist ordered 2 units of packed RBCs. The patient offers no complaints. OBJECTIVE: GENERAL: He is sleepy, however, is arousable. VITAL SIGNS: Temperature is 101 degrees Fahrenheit this afternoon, now temperature down to 98.9 degrees Fahrenheit, pulse is 96, blood pressure 144/70. CARDIOVASCULAR: Normal heart sounds. LUNGS: Clear to auscultation. ABDOMEN: Soft and nontender. Liver is enlarged. There is no splenomegaly. LABORATORY DATA: From today CBC; hemoglobin dropping to 6.5, hematocrit 19.4, MCV 139, platelet count is 76,000, polymorphs 52, bands 15, monocytes 9, lymphocytes 8, retic count is 5.1. His LDH has slightly elevated at 291. Vitamin B12 is normal at 1135, folic acid normal at 13.90. Bilirubin not done today, but most of bilirubin is indirect bilirubin. He had a CAT scan of the chest yesterday which showed some bilateral pulmonary infiltrates, but, however, his COVID-19 test is negative. CLINICAL IMPRESSION: 1. Liver cirrhosis due to alcohol abuse. 2. Alcohol withdrawal. 3. Bilateral pulmonary infiltrates, etiology unclear. 4. Fever today, again etiology unclear. 5. Thrombocytopenia, anemia with no history of any blood loss. stool for occult blood, but nothing has been done so far. RECOMMENDATIONS: 1. Transfuse as needed. 2. We would probably try to talk to Dr. Tony Zavala to see the patient again. 3. When he is stable enough, we will consider EGD and colonoscopy hopefully in the next couple of days. Job ID: [id number]
[2020-05-27 07:00] LABS: #Eosinphils 0.6 thou/uL (0.0-0.7); #Lymphocytes 1.4 thou/uL (1.20-3.40); #Monocytes 1.1 thou/uL (0.11-0.59); #Neutrophils 7.9 thou/uL (1.40-6.50); %Basophils 0.3 % (0.0-1.0); %Eosinophils 5.7 % (0.0-10.0); %Lymphocytes 12.6 % (21.0-51.0); %Monocytes 10.1 % (0.0-10.0); %Neutrophils 71.3 % (42.0-75.0); Anisocytosis MARKED = >30 cells (100X) (0-5/hpf); Band 24 % (5-11); Eosinophils 7 % (0-10); Hemoglobin 8.3 g/dL (14.0-18.0); Lymphocytes 8 % (21-51); MDiff Complete? YES; Mean Corpuscular HGB CONC 34.1 g/dL (32.0-36.0); Mean Corpuscular Hemoglobin 42.5 pg (27.0-31.0); Mean Platelet Volume 8.7 fL (7.4-10.4); Monocytes 13 % (0-10); Neutrophil 47 % (42-75); Platelet Count 80 thou/uL (130-400); Platelet Morphology Comment Appears Decreased; Polychromasia SLIGHT = 2-3 cells (100X) (0-2/hpf); RBC Distribution Width 25.2 % (11.5-14.5); Reactive Lymphocytes 1 % (0-10); Red Blood Cell (RBC) Count 1.96 mill/uL (4.70-6.10); White Blood Cell (WBC) Count 11.1 thou/uL (4.8-10.8)
[2020-05-27] MEDS: Acyclovir 400 mg Tablet PO SCH ×2 (09:37→15:08)
[2020-05-27] MEDS: Multivitamin W/ Minerals 1 TAB PO SCH (09:37)
[2020-05-27] MEDS: Hydrocortisone 1% Cream 30 GM TUBE TOP SCH ×2 (09:37→21:07)
[2020-05-27] MEDS: Nebivolol HCl 5 MG TAB PO SCH (09:37)
[2020-05-27] MEDS: Venlafaxine HCl XR 150 MG CAP PO SCH (09:37)
[2020-05-27] MEDS: Folic Acid 1 MG TAB PO SCH (09:37)
[2020-05-27] MEDS: Loratadine 10 MG TAB PO SCH (09:37)
[2020-05-27] MEDS: Lisinopril 10 MG TAB PO SCH (09:37)
[2020-05-27] MEDS: Clotrimazole 1 % Cream 30 GM TUBE TOP SCH ×2 (09:51→21:07)
[2020-05-27] MEDS ORDERED: Furosemide 100 MG/10 ML VIAL SLOW IVP SCH (10:15)
--- NOTE | 2020-05-27 11:42 | RAD ---
PORTABLE CHEST: Indications: Dyspnea, pneumonia. Comparison: Chest CT, 05-25-2020; portable chest 05-24-2020 FINDINGS: Diffuse bilateral infiltrates have significantly progressed since the portable from of 05-24-2020. The re are no ground glass diffuse ground glass opacities throughout the left lung and there are ground g lass opacities throughout the right lung with consolidation in the right lower lung. IMPRESSION: Diffuse bilateral infiltrates. POS: AH
--- NOTE | 2020-05-27 14:15 | PDOC.HOSPP ---
- Subjective Encounter Date: 05/27/20 Encounter Time: 14:14 Subjective: Mr. Resendez is a 59-year-old who is a chronic alcoholic who presented to the hospital after he was found to be severely jaundiced. His total bilirubin is elevated. His AST was also elevated but his ALT was normal. Amylase and lipase are within normal limits. He is being evaluated by the GI service. Hematology also saw him and felt that his indicis were related to his chronic alcohol use. He received 2 units of red cells for hemoglobin that was down to about 6. His blood count has improved some today. We ordered a HIDA scan to evaluate for potential gallbladder pathology. We will follow up on these results. His calculated MELD score is 28 with a 19.6% chance of mortality in 3 months. Will defer to GI about close follow-up with this unfortunate gentleman. - Objective Vital Signs & Weight: Vital Signs (12 hours) Temp Pulse Resp BP BP Pulse Ox 05/27/20 13:54 98.9 F 106 H 21 H 106/56 L 97 05/27/20 08:00 98.3 F 116 H 21 H 116/65 116/65 94 L 05/27/20 03:46 98.3 F 118 H 24 H 128/66 92 L Weight Weight 210 lb I&O: 05/26/20 05/27/20 05/28/20 06:59 06:59 06:59 Intake Total 1190 1350 Balance 1190 1350 Result Diagrams: 05/27/20 04:10 05/27/20 04:10 Radiology Reviewed by me: Yes EKG Reviewed by me: Yes Hospitalist ROS - Review of Systems Constitutional: reports: fever Respiratory: reports: SOB with excertion Gastrointestinal: reports: nausea - Medication Medications: Active Medications Generic Name Dose Route Start Last Admin Trade Name Freq PRN Reason Stop Dose Admin Acyclovir 400 mg 05/26/20 21:00 05/27/20 09:37 Acyclovir 400 Mg Tablet PO 05/27/20 15:01 400 mg TID LAURIE Administration Clotrimazole 0 gm 05/26/20 21:00 05/27/20 09:51 Clotrimazole 1 % Cream 30 Gm Tube TOP 1 applic BID LAURIE Administration Folic Acid 1 mg 05/25/20 09:00 05/27/20 09:37 Folic Acid 1 Mg Tab PO 1 mg DAILY LAURIE Administration Hydrocortisone/Aloe 1.5 gm 05/25/20 21:00 05/27/20 09:37 Hydrocortisone 1% Cream 30 Gm Tube TOP 1 applic BID LAURIE Administration Thiamine HCl 100 mg/ Sodium 51 mls @ 100 mls/hr 05/26/20 09:00 05/27/20 09:51 Chloride IVPB 51 mls Q24HR LAURIE Administration Ibuprofen 600 mg 05/25/20 07:55 05/26/20 15:52 Ibuprofen 600 Mg Tab PO 600 mg Q6H PRN Administration Fever>101/(Mi/Mod/Sev) Pain Iron/Minerals/Multivitamins 1 tab 05/25/20 09:00 05/27/20 09:37 Multivitamin W/ Minerals 1 Tab PO 1 tab DAILY LAURIE Administration Lisinopril 10 mg 05/27/20 09:00 05/27/20 09:37 Lisinopril 10 Mg Tab PO 10 mg DAILY LAURIE Administration Loratadine 10 mg 05/27/20 09:00 05/27/20 09:37 Loratadine 10 Mg Tab PO 10 mg QAM LAURIE Administration Lorazepam 1 mg 05/25/20 16:00 05/27/20 10:30 Lorazepam 1 Mg Tab PO Not Given 0400,1000,1600,2200 LAURIE Nebivolol 5 mg 05/27/20 09:00 05/27/20 09:37 Nebivolol Hcl 5 Mg Tab PO 5 mg DAILY LAURIE Administration Sodium Chloride 10 ml 05/25/20 09:00 05/27/20 09:37 Flush - Normal Saline 10 Ml Syringe IVF 10 ml Q12HR LAURIE Administration Venlafaxine HCl 150 mg 05/27/20 09:00 05/27/20 09:37 Venlafaxine Hcl Xr 150 Mg Cap PO 150 mg DAILY LAURIE Administration - Exam General Appearance: NAD, awake alert, ill appearing Eye: PERRL, scleral icterus ENT: normocephalic atraumatic, no oropharyngeal lesions, moist mucosa Neck: supple, symmetric, no JVD, no lymphadenopathy Heart: RRR, no murmur, no gallops, normal peripheral pulses Respiratory: CTAB, no wheezes, normal chest expansion Gastrointestinal: soft, non-tender, non-distended, normal bowel sounds, no palpable masses Extremities: 1+ LE edema Skin: normal turgor Neurological: cranial nerve grossly intact Musculoskeletal: normal tone, normal strength, no muscle wasting Psychiatric: normal affect, normal behavior, A&O x 3 Hosp A/P (1) Painless jaundice Code(s): R17 - UNSPECIFIED JAUNDICE Status: Acute Plan: Evaluation is ongoing. We appreciate GI services. (2) Liver cirrhosis, alcoholic Code(s): K70.30 - ALCOHOLIC CIRRHOSIS OF LIVER WITHOUT ASCITES Status: Acute Plan: Patient is now interested in quitting alcohol. He will probably need a rehab on discharge. He wants to go to a detox program. (3) Acquired hyperbilirubinemia Code(s): E80.6 - OTHER DISORDERS OF BILIRUBIN METABOLISM Status: Acute Plan: Secondary to alcohol abuse. (4) Cholelithiasis Code(s): K80.20 - CALCULUS OF GALLBLADDER W/O CHOLECYSTITIS W/O OBSTRUCTION Status: Acute Qualifiers: Cholelithiasis location: gallbladder Cholecystitis presence: without cholecystitis Plan: Follow-up on HIDA scan. - Plan old records reviewed/req #1. Painless jaundice. Etiology appears to be secondary to chronic alcohol abuse. His CT abdomen and pelvis showed evidence of chronic liver disease. He does have stigmata of liver cirrhosis. We appreciate GI evaluation. CT abdomen and pelvis obtained on admission showed evidence of liver disease. He also has some gallbladder stones and sludge. He had fever earlier on admission. I wonder if he does have true acute cholecystitis. I will consider HIDA scan. I will make further recommendation pending further work-up. 2. Hyperbilirubinemia. Likely secondary to #1 above. 3. Chronic alcohol abuse. Patient is a known alcoholic. He has been counseled. He is on supportive care. 4. Suspected cholelithiasis. I am going to order for HIDA scan. 05/27/2020. We will follow up on the results of the HIDA scan. 5. Anemia. Likely acute blood loss versus marrow suppression from chronic alcoholism. At this point we will transfuse him 2 units of packed red cells. #6. Alcohol induced liver cirrhosis. He has evidence of chronic alcohol abuse. He has cirrhosis. He is interested in quitting alcohol use. His calculated meld score is 28 with a 19.6% chance of mortality within the next 3 months. I will defer to GI service about further treatment.
[2020-05-27] MEDS ORDERED: Furosemide 40 MG/4 ML VIAL SLOW IVP SCH (22:00)
[2020-05-28 00:25] LABS: Actual Bicarbonate (HCO3a) 21.6 mEq/L (22-28); Base Excess (BEa) -1.4 mEq/L (-2.0 to +3.0); CO2 Tension 30.1 mmHg (35.0-45.0); Calcium, Ionized (arterial) 1.06 mmol/L (1.12-1.30); Carboxyhemoglobin (COHb) 1.6 gm% (0.0-3.0); Hemoglobin (Hb) 10.4 g/dL (14.0-18.0); Potassium - ABG Lab 3.81 mmol/L (3.70-5.30); pH, Arterial 7.47 (7.35-7.45)
[2020-05-28 00:36] LABS: O2 Tension (PaO2), arterial 53.9 mmHg (> 80.0); Puncture Site RR
[2020-05-28] MEDS ORDERED: Vancomycin 1 GM in Premix Bag 1 BAG IVPB SCH (00:43)
--- NOTE | 2020-05-28 00:59 | PDOC.EVN ---
Event Note - Event Note Event Note: informed by RN patient has been sob, he was given Lasix IV with no significant improvement. I came up to the bedside and assessed him. He looks tired and tachypneic. his repeat cxr is showing worsening bilateral infiltrate. A/P : possibly pneumonia , possible CHF will order BNP, cover with broad spectrum ATB, start BIPAP, cardiac enzymes.
[2020-05-28 01:09] LABS: Hemoglobin 8.1 g/dL (14.0-18.0); Mean Corpuscular HGB CONC 34.3 g/dL (32.0-36.0); Mean Platelet Volume 8.9 fL (7.4-10.4); Platelet Count 95 thou/uL (130-400); RBC Distribution Width 24.9 % (11.5-14.5); Red Blood Cell (RBC) Count 1.88 mill/uL (4.70-6.10); White Blood Cell (WBC) Count 13.2 thou/uL (4.8-10.8)
[2020-05-28 01:15] LABS: INR-International Normal Ratio 2.8; Prothrombin Time 30.4 sec (12.0-14.7)
[2020-05-28 01:22] LABS: ALT (SGPT) 20 U/L (8-55); AST (SGOT) 49 U/L (5-34); Albumin 2.7 g/dL (3.5-5.0); Alkaline Phosphatase 65 U/L (40-110); Anion Gap 14 mmol/L (10-20); BUN (Urea Nitrogen) 19 mg/dL (8.4-25.7); Bilirubin, Total 12.3 mg/dL (0.2-1.2); Calc. Creatinine Clearance 91 mL/min (70-130); Calcium 7.9 mg/dL (7.8-10.44); Carbon Dioxide 23 mmol/L (22-29); Chloride 98 mmol/L (98-107); Estimated GFR-MDRD 64; Globulin 3.2 g/dL (2.4-3.5); Glucose 106 mg/dL (70-105); Protein, Total 5.9 g/dL (6.0-8.3); Sodium 131 mmol/L (136-145)
[2020-05-28 01:25] LABS: Troponin I 0.018 ng/mL (< 0.028)
[2020-05-28 01:30] LABS: Anisocytosis MODERATE=16-30 cells (100X) (0-5/hpf); Band 32 % (5-11); Eosinophils 3 % (0-10); Lymphocytes 9 % (21-51); MDiff Complete? YES; Monocytes 6 % (0-10); Myelocyte 1 % (0-0); Neutrophil 49 % (42-75); Platelet Morphology Comment Appears Decreased
[2020-05-28] MEDS: Cefepime 2 GM in Sodium Chloride 0.9% 100 ML IVPB SCH ×3 (01:49→17:57)
[2020-05-28] MEDS ORDERED: Vancomycin 1.5 GRAM/300 ML BAG 1.5 GM in Premix Bag 1 BAG IVPB SCH ×2 (03:00→04:00)
[2020-05-28] MEDS ORDERED: Acetaminophen 325 MG TAB PO SCH (03:45)
[2020-05-28 04:01] LABS: ALT (SGPT) 19 U/L (8-55); AST (SGOT) 46 U/L (5-34); Albumin 2.8 g/dL (3.5-5.0); Alkaline Phosphatase 64 U/L (40-110); Anion Gap 13 mmol/L (10-20); BUN (Urea Nitrogen) 20 mg/dL (8.4-25.7); Bilirubin, Total 12.3 mg/dL (0.2-1.2); Calc. Creatinine Clearance 80 mL/min (70-130); Carbon Dioxide 25 mmol/L (22-29); Chloride 98 mmol/L (98-107); Estimated GFR-MDRD 55; Globulin 3.1 g/dL (2.4-3.5); Glucose 102 mg/dL (70-105); Protein, Total 5.9 g/dL (6.0-8.3); Sodium 132 mmol/L (136-145)
[2020-05-28 04:07] LABS: Anisocytosis MODERATE=16-30 cells (100X) (0-5/hpf); Band 31 % (5-11); Eosinophils 1 % (0-10); Hemoglobin 8.2 g/dL (14.0-18.0); Lymphocytes 9 % (21-51); MDiff Complete? YES; Mean Corpuscular Hemoglobin 42.4 pg (27.0-31.0); Monocytes 7 % (0-10); Neutrophil 52 % (42-75); Nucleated RBC 1 % (0); Platelet Count 94 thou/uL (130-400); Platelet Morphology Comment Appears Decreased; RBC Distribution Width 25.1 % (11.5-14.5); Red Blood Cell (RBC) Count 1.93 mill/uL (4.70-6.10); White Blood Cell (WBC) Count 12.3 thou/uL (4.8-10.8)
--- NOTE | 2020-05-28 07:06 | RAD ---
PORTABLE CHEST 1 VIEW: Date: 05/27/2020 Time: 0948 hours HISTORY: Difficulty breathing. COMPARISON: Earlier exam at 1029 hours from same date. FINDINGS: Interval worsening of bilateral air space opacities is seen. The heart size is stable. No pneumothora stephan or pleural effusions are seen. IMPRESSION: Interval worsening of bilateral pneumonia since earlier today. POS: OFF
[2020-05-28 08:56] LABS: Lactic Acid 1.5 mmol/L (0.5-2.2)
[2020-05-28 08:59] LABS: Magnesium 1.2 mg/dL (1.6-2.6); Phosphorus 2.6 mg/dL (2.3-4.7)
[2020-05-28] MEDS: Hydrocortisone 1% Cream 30 GM TUBE TOP SCH ×2 (09:27→20:24)
[2020-05-28] MEDS: Loratadine 10 MG TAB PO SCH (09:28)
[2020-05-28] MEDS: Furosemide 40 MG/4 ML VIAL SLOW IVP SCH ×2 (09:28→20:23)
[2020-05-28] MEDS: Nebivolol HCl 5 MG TAB PO SCH (09:28)
[2020-05-28] MEDS: Venlafaxine HCl XR 150 MG CAP PO SCH (09:28)
[2020-05-28] MEDS: Clotrimazole 1 % Cream 30 GM TUBE TOP SCH ×2 (09:28→20:25)
[2020-05-28] MEDS: Lisinopril 10 MG TAB PO SCH (09:28)
[2020-05-28] MEDS: Folic Acid 1 MG TAB PO SCH (09:28)
[2020-05-28] MEDS: Multivitamin W/ Minerals 1 TAB PO SCH (09:28)
[2020-05-28] MEDS ORDERED: Magnesium Sulfate 4 GM in Sodium Chloride 0.9% 250 ML 250 ML IVPB SCH (10:00)
--- NOTE | 2020-05-28 10:07 | PDOC.MOPN ---
Interval History: Please see SPECIAL DUTY NURSE note for full consult. - Vital Signs Vital Signs: Vital Signs (12 hours) Temp Pulse Resp BP BP Pulse Ox 05/28/20 09:28 109/62 05/28/20 08:00 118/69 97 05/28/20 07:04 98.6 F 05/28/20 04:48 100.3 F H 05/28/20 04:00 110 H 53 H 96 05/28/20 03:25 100.3 F H 05/28/20 01:15 94 L 05/28/20 00:00 103/58 L 05/27/20 23:50 94 L 05/27/20 23:44 108 H 110/59 L 94 L Weight Weight 206 lb 4 oz Most Recent Monitor Data Heart Rate from ECG 109 NIBP 109/62 NIBP BP-Mean 77 Respiration from ECG 35 SpO2 91 - Labs Result Diagrams: 05/28/20 03:17 05/28/20 03:16 Lab results: Laboratory Results - last 24 hr 05/28/20 08:33: C-Reactive Protein 6.99 H 05/28/20 08:33: Phosphorus 2.6, Magnesium 1.2 L 05/28/20 08:33: Lactic Acid 1.5 05/28/20 03:17: WBC 12.3 H, RBC 1.93 L, Hgb 8.2 L, Hct 24.1 L, MCV 125.0 H, MCH 42.4 H, MCHC 34.0, RDW 25.1 H, Plt Count 94 L, MPV 9.0, Neutrophils % (Manual) 52, Band Neuts % (Manual) 31 H, Lymphocytes % (Manual) 9 L, Monocytes % (Manual) 7, Eosinophils % (Manual) 1, Nucleated RBCs # (Man) 1 H, Plt Morphology Comment Appears Decreased L, Anisocytosis MODERATE=16-30 cells H 05/28/20 03:16: Sodium 132 L, Potassium 4.0, Chloride 98, Carbon Dioxide 25, Anion Gap 13, BUN 20, Creatinine 1.33 H, Estimated GFR (MDRD) 55, Glucose 102, Calcium 8.0, Total Bilirubin 12.3 H, AST 46 H, ALT 19, Alkaline Phosphatase 64, Serum Total Protein 5.9 L, Albumin 2.8 L, Globulin 3.1, Albumin/Globulin Ratio 0.9 L 05/28/20 01:00: Troponin I 0.018 05/28/20 01:00: B-Natriuretic Peptide 634.7 H 05/28/20 01:00: PT 30.4 H, INR 2.8 05/28/20 01:00: WBC 13.2 H, RBC 1.88 L, Hgb 8.1 L, Hct 23.6 L, MCV 126.0 H, MCH 43.0 H, MCHC 34.3, RDW 24.9 H, Plt Count 95 L, MPV 8.9, Neutrophils % (Manual) 49, Band Neuts % (Manual) 32 H, Lymphocytes % (Manual) 9 L, Monocytes % (Manual) 6, Eosinophils % (Manual) 3, Myelocytes % 1 H, Lymphocytes # Not Reportable, Plt Morphology Comment Appears Decreased L, Anisocytosis MODERATE=16-30 cells H 05/28/20 01:00: Sodium 131 L, Potassium 4.0, Chloride 98, Carbon Dioxide 23, Anion Gap 14, BUN 19, Creatinine 1.16, Estimated GFR (MDRD) 64, Glucose 106 H, Calcium 7.9, Total Bilirubin 12.3 H, AST 49 H, ALT 20, Alkaline Phosphatase 65, Serum Total Protein 5.9 L, Albumin 2.7 L, Globulin 3.2, Albumin/Globulin Ratio 0.8 L 05/28/20 00:21: Specimen Type ART, Puncture Site RR, Bicarbonate Actual 21.6 L, ABG pH 7.47 H, ABG pCO2 30.1 L, ABG pO2 53.9 L*, ABG O2 Sat (Measured) 89.1 L, ABG O2 Content 12.8 L, ABG Base Excess -1.4, ABG Hematocrit 31.0 L, ABG Hemoglobin 10.4 L, ABG Oxyhemoglobin 87.4 L, ABG Carboxyhemoglobin 1.6, ABG Methemoglobin 0.30, ABG Deoxyhemoglobin 10.7 H, Harley Test POSITIVE, Sodium 129 L, Potassium 3.81, Chloride 98, Ionized Calcium 1.06 L, Mode of Support 4 LPM NC 05/26/20 08:29: Haptoglobin 66 05/25/20 16:20: Diff Path Review A/P - Problem (1) Anemia Current Visit: Yes Code(s): D64.9 - ANEMIA, UNSPECIFIED Status: Acute (2) Liver cirrhosis, alcoholic Current Visit: Yes Code(s): K70.30 - ALCOHOLIC CIRRHOSIS OF LIVER WITHOUT ASCITES Status: Acute - Plan Plan: Agree with Tracy Schultz NP Pt has severe cirrhosis and profound anemia with thrombocytopenia. Thrombocytopenia 2/2 cirrhosis. Regarding his anemia, he has elevated bilirubin and most is indirect but expect this is related to his liver as he has no other signs of hemolysis with mildly elevated LDH which is lower than his baseline, normal haptoglobin, and negative Brenda. His retic is elevated at 5% but not extremely high so expect this is due to chronic alcohol use and liver disease causing some degree of bone marrow suppression, but would also be concerned for a potential bleed given retic is elevated in the first place and he is not hemolyzing. This degree of anemia is more acute/subacute than chronic so would not expect a primary bone marrow problem, and he is not a good candidate for a bone marrow biopsy at this time either. If he becomes stable then may have en doscopy for evaluation. Will follow along with his hospital course.
[2020-05-28] MEDS: Lidocaine 5% Patch TD SCH (16:10)
[2020-05-28] MEDS: Vancomycin 1.5 GRAM/300 ML BAG 1.5 GM in Premix Bag 1 BAG IVPB SCH ×3 (16:10→16:22)
[2020-05-28 16:31] LABS: SARS-CoV-2 IgG Ab Non-Reactive (NonReactive); SARS-CoV-2 IgG Index 0.02 S/CO (< 1.40)
--- NOTE | 2020-05-28 17:54 | PRG ---
DATE OF SERVICE: SUBJECTIVE: Mr. Resendez has been moved to IMU secondary to decreased oxygen saturations. He is without complaints. Mildly jittery. OBJECTIVE: VITAL SIGNS: T-max 101 on 05/26, T current 98.8, T-max over the past 24 hours 100.3 at 4:00 a.m. this morning. Pulse 105, blood pressure 115/62, O2 saturation low 90s and high 80s, and blood pressure 115/62. LUNGS: Notable for coarse rhonchi and rales in the right base. HEART: Noted for sinus tachycardia. ABDOMEN: Soft and nontender. EXTREMITIES: No clubbing cyanosis, or edema. LABORATORIES: White count 13.2, hemoglobin 8.1, platelet count 95,000, and bands 32%. INR 2.8. Sodium 133, potassium 4, BUN and creatinine 20 and 1.3. Phosphorus was 2.6 today. Mag is 1.2 and it has been replaced. Bilirubin is 12.3, direct was 3.5. AST 46, ALT 19. CRP 6. Protein 5.9, albumin 2.8. Folate normal, B12 normal. ASSESSMENT: 1. Severe alcoholic hepatitis. 2. Delirium tremens. 3. Anemia, multifactorial. 4. Worsening chest x-ray as of yesterday morning. RECOMMENDATIONS: 1. Ulcer prophylaxis, PPI. 2. Agree with broad-spectrum antibiotics. He is an alcoholic. Consider covering for aspiration pneumonia. 3. Patient needs a banana bag daily with his respirations, he is not going to be eating much. 4. Agree with Lasix in light of his chest x-ray and his edema. 5. With the elevated indirect hyperbilirubinemia even though Hematology feels there are no signs of hemolysis, we will go and check ceruloplasmin. We will follow along with you. Job ID: [id number]
[2020-05-28] MEDS: Multivitamins, Adult 10 ML, Folic Acid 1 MG, Thiamine HCl 100 MG in Dextrose 5 %-0.45 %... IV SCH (17:58)
--- NOTE | 2020-05-28 18:52 | PDOC.HOSPP ---
- Subjective Encounter Date: 05/28/20 Encounter Time: 09:15 Subjective: Patient seen and examined for acute hepatic failure. Off NIPPV. Shortness of breath slowly improving. Denies any fever or chills. Some dry cough. - Objective Vital Signs & Weight: Vital Signs (12 hours) Temp BP Pulse Ox 05/28/20 18:35 94 L 05/28/20 16:00 121/70 05/28/20 15:25 98.8 F 05/28/20 12:00 105/54 L 05/28/20 11:39 98.2 F 05/28/20 09:28 109/62 05/28/20 08:00 118/69 97 05/28/20 07:04 98.6 F Weight Weight 206 lb 4 oz Most Recent Monitor Data Heart Rate from ECG 97 NIBP 101/55 NIBP BP-Mean 70 Respiration from ECG 45 SpO2 93 I&O: 05/27/20 05/28/20 05/29/20 06:59 06:59 06:59 Intake Total 1350 300 800 Output Total 65 325 Balance 1350 235 475 Result Diagrams: 05/28/20 03:17 05/28/20 03:16 Additional Labs: Abnormal Lab Results - Last 48 hrs 05/26/20 08:26: Crossmatch See Detail 05/27/20 04:10: Sodium 131 L, Total Bilirubin 13.7 H, AST 43 H, Albumin 2.9 L, Albumin/Globulin Ratio 0.9 L, Amylase 17.0 L 05/27/20 04:10: WBC 11.1 H, RBC 1.96 L, Hgb 8.3 L, Hct 24.4 L, MCV 125.0 H, MCH 42.5 H, RDW 25.2 H, Plt Count 80 L, Band Neuts % (Manual) 24 H, Lymphocytes % 12.6 L, Lymphocytes % (Manual) 8 L, Monocytes % 10.1 H, Monocytes % (Manual) 13 H, Neutrophils # 7.9 H, Monocytes # 1.1 H, Plt Morphology Comment Appears Decreased L, Anisocytosis MARKED = >30 cells H 05/28/20 00:21: Bicarbonate Actual 21.6 L, ABG pH 7.47 H, ABG pCO2 30.1 L, ABG pO2 53.9 L*, ABG O2 Sat (Measured) 89.1 L, ABG O2 Content 12.8 L, ABG Hematocrit 31.0 L, ABG Hemoglobin 10.4 L, ABG Oxyhemoglobin 87.4 L, ABG Deoxyhemoglobin 10.7 H, Ionized Calcium 1.06 L, Sodium 129 L 05/28/20 01:00: Sodium 131 L, Total Bilirubin 12.3 H, AST 49 H, Serum Total Protein 5.9 L, Albumin 2.7 L, Albumin/Globulin Ratio 0.8 L 05/28/20 01:00: WBC 13.2 H, RBC 1.88 L, Hgb 8.1 L, Hct 23.6 L, MCV 126.0 H, MCH 43.0 H, RDW 24.9 H, Plt Count 95 L, Band Neuts % (Manual) 32 H, Lymphocytes % (Manual) 9 L, Myelocytes % 1 H, Plt Morphology Comment Appears Decreased L, A nisocytosis MODERATE=16-30 cells H 05/28/20 01:00: PT 30.4 H 05/28/20 01:00: B-Natriuretic Peptide 634.7 H 05/28/20 03:16: Sodium 132 L, Creatinine 1.33 H, Total Bilirubin 12.3 H, AST 46 H, Serum Total Protein 5.9 L, Albumin 2.8 L, Albumin/Globulin Ratio 0.9 L 05/28/20 03:17: WBC 12.3 H, RBC 1.93 L, Hgb 8.2 L, Hct 24.1 L, MCV 125.0 H, MCH 42.4 H, RDW 25.1 H, Plt Count 94 L, Band Neuts % (Manual) 31 H, Lymphocytes % (Manual) 9 L, Nucleated RBCs # (Man) 1 H, Plt Morphology Comment Appears Decreased L, Anisocytosis MODERATE=16-30 cells H 05/28/20 08:33: Magnesium 1.2 L 05/28/20 08:33: C-Reactive Protein 6.99 H Microbiology - Entire Visit 05/25/20 08:11 Venous blood - Right Hand Blood Culture - Preliminary NO GROWTH AT 48 HOURS 05/25/20 08:10 Venous blood - Left Arm Blood Culture - Preliminary NO GROWTH AT 48 HOURS Radiology Reviewed by me: Yes (Chest x-raypneumonia) EKG Reviewed by me: Yes (Sinus rhythm on telemetry) Hospitalist ROS - Review of Systems Constitutional: reports: weakness, malaise Gastrointestinal: denies: nausea, vomiting, abdominal pain, diarrhea, constipation, melena, hematochezia, other Genitourinary: denies: dysuria, frequency, incontinence, hematuria, retention, other - Medication Medications: Active Medications Generic Name Dose Route Start Last Admin Trade Name Freq PRN Reason Stop Dose Admin Clotrimazole 0 gm 05/26/20 21:00 05/28/20 09:28 Clotrimazole 1 % Cream 30 Gm Tube TOP 1 applic BID LAURIE Administration Folic Acid 1 mg 05/25/20 09:00 05/28/20 09:28 Folic Acid 1 Mg Tab PO 1 mg DAILY LAURIE Administration Furosemide 40 mg 05/28/20 09:00 05/28/20 09:28 Furosemide 40 Mg/4 Ml Vial SLOW IVP 40 mg BID LAURIE Administration Hydrocortisone/Aloe 1.5 gm 05/25/20 21:00 05/28/20 09:27 Hydrocortisone 1% Cream 30 Gm Tube TOP 1 applic BID LAURIE Administration Cefepime HCl 2 gm/ Sodium 100 mls @ 200 mls/hr 05/28/20 01:00 05/28/20 17:57 Chloride IVPB 100 mls 0100,0900,1700 LAURIE Administration Multivitamins 10 ml/ Folic 1,011.2 mls @ 75 mls/hr 05/28/20 18:00 05/28/20 17:58 Acid 1 mg/ Thiamine HCl 100 mg IV 1,011.2 mls / Dextrose/Sodium Chloride Q24HR LAURIE Administration Iron/Minerals/Multivitamins 1 tab 05/25/20 09:00 05/28/20 09:28 Multivitamin W/ Minerals 1 Tab PO 1 tab DAILY LAURIE Administration Lidocaine 1 patch 05/28/20 16:00 05/28/20 16:10 Lidocaine 5% Patch TD 1 patch Q24H LAURIE Administration Loratadine 10 mg 05/27/20 09:00 05/28/20 09:28 Loratadine 10 Mg Tab PO 10 mg QAM LAURIE Administration Nebivolol 5 mg 05/27/20 09:00 05/28/20 09:28 Nebivolol Hcl 5 Mg Tab PO 5 mg DAILY LAURIE Administration Sodium Chloride 10 ml 05/25/20 09:00 05/28/20 09:29 Flush - Normal Saline 10 Ml Syringe IVF 10 ml Q12HR LAURIE Administration Venlafaxine HCl 150 mg 05/27/20 09:00 05/28/20 09:28 Venlafaxine Hcl Xr 150 Mg Cap PO 150 mg DAILY LAURIE Administration - Exam General Appearance: ill appearing Neck: supple, no JVD Heart: RRR, no gallops, no rubs, normal peripheral pulses Respiratory: no wheezes, normal chest expansion, rales, rhonchi, tachypneic Gastrointestinal: soft, normal bowel sounds, no guarding, no rigidity Extremities: no cyanosis, no clubbing, 1+ LE edema Neurological: no new deficit Psychiatric: normal affect, A&O x 3 Hosp A/P - Plan DVT proph w/SCDs Severe alcoholic hepatitis/acute hepatic failure Acute hypoxic respiratory failure/sepsis due to aspiration pneumoniaPOA Chronic alcoholism with alcohol withdrawal Hyponatremia/hypomagnesemia Alcoholic cirrhosis with varices/portal hypertension Anemia with elevated reticulocyte count Tobacco dependence Chronic low back pain Anxiety Penicillin allergy Plan: Blood cultures negative. Will continue vancomycin with cefepime. Monitor vancomycin level. Banana bag started. Consult pulmonary. Continue IV diuretics. Continue nebivolol. Hold SHAN inhibitor. Replace magnesium. Continue fluid restriction. Check echocardiogram. Continue other medications as above.
[2020-05-28] MEDS ORDERED: Ondansetron PF 4 MG/2 ML Vial IVP PRN (19:14)
--- NOTE | 2020-05-28 19:34 | CON ---
DATE OF CONSULTATION: 05/28/2020 HISTORY OF PRESENT ILLNESS: Oli Resendez is a 59-year-old male. He is in the intermediate care unit. I am consulted because of that. He has patchy bilateral infiltrates. Systolic blood pressures in the 90s. He has been febrile. Apparently, he is a heavy drinker. PAST MEDICAL HISTORY: Remarkable for, 1. Heavy alcohol use chronically. 2. History of hypertension. 3. History of depression. Last drink was on the morning he was admitted. FAMILY HISTORY: Positive for vascular disease. Negative for lung disease in early age. SOCIAL HISTORY: He dips. Does not smoke. Drinks on a daily basis. ALLERGIES: REPORTS AN ALLERGY TO PENICILLIN. REVIEW OF SYSTEMS: Otherwise negative. He actually says he feels comfortable with a cannula on. He does not like the BiPAP. PHYSICAL EXAMINATION: VITAL SIGNS: Oximetry is 94%, heart rate is 97, blood pressure 101/55, respiratory rates in the 20s. HEENT: He is extremely icteric. Extraocular movements are full. NECK: Supple. LUNGS: Remarkable for crackles in both lung bases. HEART: Regular rhythm. ABDOMEN: Soft. EXTREMITIES: No clubbing, cyanosis, or edema. LABORATORY DATA: White count 13.2, hemoglobin 8.1, platelets 95. Electrolytes are unremarkable. Creatinine is 1.3. Bilirubin is 12. COVID screen was negative. COVID antibody was negative. Chest x-ray shows diffuse patchy infiltrates. IMPRESSION: 1. Pneumonia. 2. Possible coexistent pulmonary edema. An echocardiogram needs to be done given his extremely heavy alcohol use. 3. Acute alcoholic hepatitis. PLAN: Continue supportive care. Continue antimicrobial therapy. He would probably benefit from nebulizer treatments to hopefully help him mobilize some secretions, but this could also be aspiration-induced chemical pneumonitis. Low-dose steroids might be helpful. Follow the other physicians caring for him. The patient's care was discussed with Dr. Watts. There is definitely a risk for alcohol withdrawal and may be starting with that. This was a 50 min consult with greater than 50% of the time spent on the unit with coordination of care. Job ID: [id number] [facility]
[2020-05-28] MEDS ORDERED: Nicotine 7 MG PATCH TD SCH (20:00)
[2020-05-28] MEDS: Lorazepam 1 MG TAB PO PRN (20:17)
[2020-05-28] MEDS: methylPREDNISolone Sod Succ 40 MG VIAL IVP SCH (20:18)
[2020-05-29] MEDS: Cefepime 2 GM in Sodium Chloride 0.9% 100 ML IVPB SCH ×3 (00:36→17:47)
[2020-05-29] MEDS: Lorazepam 1 MG TAB PO PRN (03:26)
[2020-05-29 03:55] LABS: INR-International Normal Ratio 2.9
[2020-05-29] MEDS ORDERED: Lidocaine Patch Removal 1 EACH TOP SCH (04:00)
[2020-05-29 04:03] LABS: #Basophils 0.1 thou/uL (0.0-0.2); #Eosinphils 0.1 thou/uL (0.0-0.7); #Lymphocytes 0.6 thou/uL (1.20-3.40); #Monocytes 1.2 thou/uL (0.11-0.59); #Neutrophils 12.7 thou/uL (1.40-6.50); %Basophils 0.4 % (0.0-1.0); %Eosinophils 0.6 % (0.0-10.0); %Lymphocytes 4.1 % (21.0-51.0); %Monocytes 8.1 % (0.0-10.0); %Neutrophils 86.8 % (42.0-75.0); Hemoglobin 8.1 g/dL (14.0-18.0); Mean Corpuscular HGB CONC 32.7 g/dL (32.0-36.0); Mean Corpuscular Hemoglobin 41.6 pg (27.0-31.0); Mean Platelet Volume 8.9 fL (7.4-10.4); Platelet Count 105 thou/uL (130-400); RBC Distribution Width 24.5 % (11.5-14.5); Red Blood Cell (RBC) Count 1.94 mill/uL (4.70-6.10); White Blood Cell (WBC) Count 14.6 thou/uL (4.8-10.8)
[2020-05-29 04:10] LABS: Anion Gap 16 mmol/L (10-20); BUN (Urea Nitrogen) 32 mg/dL (8.4-25.7); Calc. Creatinine Clearance 60 mL/min (70-130); Carbon Dioxide 21 mmol/L (22-29); Chloride 98 mmol/L (98-107); Estimated GFR-MDRD 41; Glucose 166 mg/dL (70-105); Magnesium 2.1 mg/dL (1.6-2.6); Phosphorus 2.9 mg/dL (2.3-4.7); Potassium 4.3 mmol/L (3.5-5.1); Sodium 131 mmol/L (136-145)
[2020-05-29 04:11] LABS: ALT (SGPT) 19 U/L (8-55); AST (SGOT) 51 U/L (5-34); Albumin 2.7 g/dL (3.5-5.0); Alkaline Phosphatase 65 U/L (40-110); Bilirubin, Total 10.6 mg/dL (0.2-1.2)
[2020-05-29] MEDS: Vancomycin 1.5 GRAM/300 ML BAG 1.5 GM in Premix Bag 1 BAG IVPB SCH ×2 (04:19→18:29)
--- NOTE | 2020-05-29 09:09 | RAD ---
EXAM: Chest one view: HISTORY: Difficulty breathing COMPARISON: 05/27/2020 FINDINGS: Heart size: Within normal limits. Lungs: Progressive extensive bilateral alveolar and groundglass opacity changes throughout the entire ty both lungs No significant pleural effusion. IMPRESSION: Progressive bilateral alveolar and groundglass opacity changes now throughout the entirety of both candice ngs. Continued short-term follow-up.
[2020-05-29] MEDS: Clotrimazole 1 % Cream 30 GM TUBE TOP SCH ×2 (10:08→21:08)
[2020-05-29] MEDS: Hydrocortisone 1% Cream 30 GM TUBE TOP SCH ×2 (10:08→21:09)
[2020-05-29] MEDS: Nebivolol HCl 5 MG TAB PO SCH (10:09)
[2020-05-29] MEDS: Multivitamin W/ Minerals 1 TAB PO SCH (10:09)
[2020-05-29] MEDS: Folic Acid 1 MG TAB PO SCH (10:10)
[2020-05-29] MEDS: methylPREDNISolone Sod Succ 40 MG VIAL IVP SCH ×2 (10:10→21:09)
[2020-05-29] MEDS: Loratadine 10 MG TAB PO SCH (10:10)
[2020-05-29] MEDS: Venlafaxine HCl XR 150 MG CAP PO SCH (10:10)
[2020-05-29] MEDS ORDERED: Furosemide 40 MG/4 ML VIAL SLOW IVP SCH (10:15)
[2020-05-29] MEDS ORDERED: Propofol 1,000 MG/100 ML VIAL IV ONE ×2 (10:21→10:47)
[2020-05-29] MEDS ORDERED: PROPOFOL 20 ML ONE (10:48)
[2020-05-29] MEDS: Vecuronium 10 MG VIAL ONE (11:00)
[2020-05-29 11:28] LABS: Actual Bicarbonate (HCO3a) 21.7 mEq/L (22-28); CO2 Tension 48.4 mmHg (35.0-45.0); Calcium, Ionized (arterial) 1.09 mmol/L (1.12-1.30); Carboxyhemoglobin (COHb) 0.8 gm% (0.0-3.0); Hemoglobin (Hb) 8.5 g/dL (14.0-18.0); O2 Tension (PaO2), arterial 136.6 mmHg (> 80.0); Potassium - ABG Lab 3.81 mmol/L (3.70-5.30); pH, Arterial 7.27 (7.35-7.45)
[2020-05-29 11:30] LABS: Puncture Site RRA
[2020-05-29] MEDS: Furosemide 40 MG/4 ML VIAL SLOW IVP SCH (11:31)
--- NOTE | 2020-05-29 11:31 | RAD ---
RADIOGRAPH CHEST 1 VIEW: DATE: 05/29/2020 TIME: 11:19 AM HISTORY: 59-year-old male with respiratory distress, status post intubation COMPARISON: 05/29/2020 7:22 AM FINDINGS: New ETT at mid thoracic trachea. New esophagogastric tube coursing through left upper quadrant of abdomen. Interval improvement in the diffuse mixed interstitial and alveolar infiltrates throughout the left l keyur. No interval change in the more severe, mostly alveolar infiltrates throughout right lung. No cardiomegaly or pneumothorax. IMPRESSION: 1) status post intubation. 2) interval improvement in the diffuse left-sided infiltrates. 3) no interval improvement in the severe diffuse right-sided infiltrates.
[2020-05-29] MEDS ORDERED: Propofol BOLUS 1,000 MG/100 ML VIAL IV PRN (11:45)
[2020-05-29] MEDS ORDERED: Morphine 2 MG/ML VIAL SLOW IVP PRN (11:45)
[2020-05-29] MEDS ORDERED: DISCONTINUE PREVIOUS NARCOTIC PAIN MEDICATIONS AND BENZODIAZEPINES FS SCH (11:45)
[2020-05-29] MEDS ORDERED: Fentanyl BOLUS 250 ML IVPB PRN (11:45)
--- NOTE | 2020-05-29 11:57 | NM ---
NUCLEAR MEDICINE HEPATOBILIARY SCAN: DATE: 05/27/2020 Submitted for dictation on 05/29/2020 HISTORY: 59-year-old male with jaundice and acute liver failure. Evaluate for acute cholecystitis. TECHNIQUE: Pretreatment Kinevac (CCK analog) dose: 1.8 mcg. Technetium 99m-mebrofenin dose: 4.7 mCi. Kinevac (CCK analog) dose: 1.8 mcg. Patient was pretreated with Kinevac prior to study. Tc 99- mebrofenin injected IV. Dynamic anterior s cintigraphy of abdomen for one hour. Kinevac injected. Additional dynamic anterior scintigraphy of abdomen. Counts obtained over the gallbladder. Time-activity curve generated. FINDINGS: There is uptake, but slow, poor washout, of activity, at the liver. There is slightly delayed filling of the gallbladder, which is visualized at approximately 45 minutes . Bowel activity is visualized) one hour. Following second CCK analog injection, there is a very low gallbladder ejection fraction of 15% IMPRESSION: 1) diffuse hepatocellular dysfunction, consistent with stated history of the acute liver failure, for example with acute hepatitis. 2) no acute cholecystitis. 3) gallbladder dysfunction/chronic cholecystitis
[2020-05-29] MEDS ORDERED: Dextrose 5 % And 0.9 % NaCl 1,000 ML IV SCH (14:30)
[2020-05-29] MEDS: Lorazepam 2 MG/ML VIAL SLOW IVP PRN ×3 (14:45→21:10)
[2020-05-29] MEDS: Albumin 25% 25 GM/100 ML BOT IVPB SCH ×2 (14:46→21:07)
[2020-05-29] MEDS: fentaNYL Citrate/PF 2,000 MCG in Sodium Chloride 0.9% 60 ML IV SCH (15:19)
[2020-05-29 16:06] LABS: Vancomycin, Trough 31.1 ug/mL
[2020-05-29] MEDS ORDERED: Vancomycin HCl 750 MG in Sodium Chloride 0.9% 250 ML 250 ML IVPB SCH (16:30)
[2020-05-29 16:35] LABS: ANA Symphony (Qualitative) Negative (Negative); ANA Symphony (Quantitative) 0.3 Ratio (< 0.7 Negative); EliA Vaculitis New Method **** NEW METHOD ****; Mitochondrial Ab 1.5 U/mL (<4 Negative); dsDNA IgG Antibody 1.6 IU/mL (<10 Negative)
[2020-05-29] MEDS: Lidocaine 5% Patch TD SCH (16:43)
--- NOTE | 2020-05-29 17:58 | PRG ---
DATE OF SERVICE: 05/29/2020 SUBJECTIVE: Oli Resendez has become increasingly tachycardic, tachypneic and agitated requiring restraining earlier today. Clinically appears that he is having full-blown alcohol withdrawal. I talked to his significant other, who tells me that not only does he drink three to four 40 ounce beers a day, he usually drinks half of a half gallon of whiskey a day. She says everyone coming. I recommended transfer to the Critical Care for intubation. This was done successfully. OBJECTIVE: VITAL SIGNS: Currently, respiratory rate per mechanical ventilation, FiO2 is 60, heart rate is in 80s, blood pressure 88/43 earlier, 118/75 now. LUNGS: Remarkable for coarse equal breath sounds. HEART: Regular rhythm. ABDOMEN: Soft. EXTREMITIES: Without asymmetry or edema. Chest x-ray shows bilateral diffuse alveolar infiltrates which I suspect are mixture of pneumonia and ARDS. He will be kept sedated and paralyzed if necessary until he gets through the alcohol withdrawal window. CRITICAL CARE TIME: 40 minutes independent of the procedure. Job ID: [id number]
[2020-05-29] MEDS: Multivitamins, Adult 10 ML, Folic Acid 1 MG, Thiamine HCl 100 MG in Dextrose 5 %-0.45 %... IV SCH (18:04)
--- NOTE | 2020-05-29 19:17 | PDOC.HOSPP ---
- Subjective Encounter Date: 05/29/20 Encounter Time: 14:00 Subjective: Patient seen and examined for alcoholic hepatitis/alcohol withdrawal with respiratory failure. Was intubated this morning. - Objective Vital Signs & Weight: Vital Signs (12 hours) Temp Pulse Resp BP Pulse Ox 05/29/20 18:20 88 05/29/20 18:00 20 05/29/20 16:00 98.6 F 05/29/20 14:39 94 105/55 L 05/29/20 13:23 102 H 113/60 05/29/20 12:00 98.4 F 05/29/20 11:33 20 100 05/29/20 11:00 110 H 133/73 05/29/20 07:56 103 H 35 H 98 05/29/20 07:43 99.0 F 05/29/20 07:20 94 L Weight Weight 210 lb Most Recent Monitor Data Heart Rate from ECG 83 NIBP 93/48 NIBP BP-Mean 63 Respiration from ECG 20 SpO2 100 I&O: 05/28/20 05/29/20 05/30/20 06:59 06:59 06:59 Intake Total 300 2093 1338 Output Total 65 725 969 Balance 235 1368 369 Result Diagrams: 05/29/20 03:31 05/29/20 03:32 Additional Labs: Abnormal Lab Results - Last 48 hrs 05/28/20 00:21: Bicarbonate Actual 21.6 L, ABG pH 7.47 H, ABG pCO2 30.1 L, ABG pO2 53.9 L*, ABG O2 Sat (Measured) 89.1 L, ABG O2 Content 12.8 L, ABG Hematocrit 31.0 L, ABG Hemoglobin 10.4 L, ABG Oxyhemoglobin 87.4 L, ABG Deoxyhemoglobin 10.7 H, Sodium 129 L, Ionized Calcium 1.06 L 05/28/20 01:00: Sodium 131 L, Total Bilirubin 12.3 H, AST 49 H, Serum Total Protein 5.9 L, Albumin 2.7 L, Albumin/Globulin Ratio 0.8 L 05/28/20 01:00: WBC 13.2 H, RBC 1.88 L, Hgb 8.1 L, Hct 23.6 L, MCV 126.0 H, MCH 43.0 H, RDW 24.9 H, Plt Count 95 L, Band Neuts % (Manual) 32 H, Lymphocytes % (Manual) 9 L, Myelocytes % 1 H, Plt Morphology Comment Appears Decreased L, Anisocytosis MODERATE=16-30 cells H 05/28/20 01:00: PT 30.4 H 05/28/20 01:00: B-Natriuretic Peptide 634.7 H 05/28/20 03:16: Sodium 132 L, Creatinine 1.33 H, Total Bilirubin 12.3 H, AST 46 H, Serum Total Protein 5.9 L, Albumin 2.8 L, Albumin/Globulin Ratio 0.9 L 05/28/20 03:17: WBC 12.3 H, RBC 1.93 L, Hgb 8.2 L, Hct 24.1 L, MCV 125.0 H, MCH 42.4 H, RDW 25.1 H, Plt Count 94 L, Band Neuts % (Manual) 31 H, Lymphocytes % (Manual) 9 L, Nucleated RBCs # (Man) 1 H, Plt Morphology Comment Appears Decreased L, Anisocytosis MODERATE=16-30 cells H 05/28/20 08:33: Magnesium 1.2 L 05/28/20 08:33: C-Reactive Protein 6.99 H 05/29/20 03:31: WBC 14.6 H, RBC 1.94 L, Hgb 8.1 L, Hct 24.7 L, MCV 127.0 H, MCH 41.6 H, RDW 24.5 H, Plt Count 105 L, Neutrophils % 86.8 H, Lymphocytes % 4.1 L, Neutrophils # 12.7 H, Lymphocytes # 0.6 L, Monocytes # 1.2 H 05/29/20 03:31: PT 31.0 H 05/29/20 03:32: Sodium 131 L, Carbon Dioxide 21 L, BUN 32 H, Creatinine 1.72 H 05/29/20 03:32: Total Bilirubin 10.6 H, Direct Bilirubin 5.0 H, AST 51 H, Albumin 2.7 L 05/29/20 11:25: Bicarbonate Actual 21.7 L, ABG pH 7.27 L, ABG pCO2 48.4 H, ABG pO2 136.6 H, ABG O2 Sat (Measured) 98.7 H, ABG O2 Content 12.0 L, ABG Base Excess -5.0 L, ABG Hematocrit 25.0 L, ABG Hemoglobin 8.5 L, A-a O2 Gradient 302.000 H, Sodium 128 L, Ionized Calcium 1.09 L 05/29/20 15:29: Vancomycin Trough 31.1 H* Microbiology - Entire Visit 05/25/20 08:11 Venous blood - Right Hand Blood Culture - Preliminary NO GROWTH AT 48 HOURS 05/25/20 08:10 Venous blood - Left Arm Blood Culture - Preliminary NO GROWTH AT 48 HOURS Radiology Reviewed by me: Yes (Chest x-raybilateral infiltrate) EKG Reviewed by me: Yes (Sinus rhythm on telemetry) Hospitalist ROS - Review of Systems ROS unobtainable: due to mental status - Medication Medications: Active Medications Generic Name Dose Route Start Last Admin Trade Name Freq PRN Reason Stop Dose Admin Albumin Human 25 gm 05/29/20 14:00 05/29/20 14:46 Albumin 25% 25 Gm/100 Ml Bot IVPB 07/11/20 14:01 25 gm Q6H LAURIE Administration Albuterol/Ipratropium 3 ml 05/28/20 19:00 05/29/20 18:20 Ipratropium/Albuterol Sulfate 3 Ml Neb NEB 3 ml [id number] LAURIE Administration Clotrimazole 0 gm 05/26/20 21:00 05/29/20 10:08 Clotrimazole 1 % Cream 30 Gm Tube TOP 1 applic BID LUARIE Administration Folic Acid 1 mg 05/25/20 09:00 05/29/20 10:10 Folic Acid 1 Mg Tab PO 1 mg DAILY LAURIE Administration Furosemide 40 mg 05/28/20 09:00 05/28/20 20:23 Furosemide 40 Mg/4 Ml Vial SLOW IVP 40 mg BID LAURIE Administration Hydrocortisone/Aloe 1.5 gm 05/25/20 21:00 05/29/20 10:08 Hydrocortisone 1% Cream 30 Gm Tube TOP 1 applic BID LAURIE Administration Cefepime HCl 2 gm/ Sodium 100 mls @ 200 mls/hr 05/28/20 01:00 05/29/20 17:47 Chloride IVPB 100 mls 0100,0900,1700 LAURIE Administration Multivitamins 10 ml/ Folic 1,011.2 mls @ 75 mls/hr 05/28/20 18:00 05/29/20 18:04 Acid 1 mg/ Thiamine HCl 100 mg IV 1,011.2 mls / Dextrose/Sodium Chloride Q24HR LAURIE Administration Fentanyl Citrate 2,000 mcg/ 100 mls @ 0 mls/hr 05/29/20 11:45 05/29/20 15:19 Sodium Chloride IV 06/28/20 11:45 100 mls INF LAURIE Administration Protocol Per Protocol Dextrose/Sodium Chloride 1,000 mls @ 30 mls/hr 05/29/20 14:30 05/29/20 14:45 D5 0.9% Ns IV 1,000 mls .Q24H LAURIE Administration Iron/Minerals/Multivitamins 1 tab 05/25/20 09:00 05/29/20 10:09 Multivitamin W/ Minerals 1 Tab PO 1 tab DAILY LAURIE Administration Lactulose 10 gm 05/29/20 09:00 05/29/20 10:10 Lactulose 20 Gm/30 Ml Udcup PO 10 gm DAILY LAURIE Administration Lidocaine 1 patch 05/28/20 16:00 05/29/20 16:43 Lidocaine 5% Patch TD Not Given Q24H LAURIE Loratadine 10 mg 05/27/20 09:00 05/29/20 10:10 Loratadine 10 Mg Tab PO 10 mg QAM LAURIE Administration Lorazepam 1 mg 05/27/20 18:02 05/29/20 03:26 Lorazepam 1 Mg Tab PO 1 mg Q6H PRN Administration ASE PROTOCOL Lorazepam 2 mg 05/29/20 11:45 05/29/20 18:12 Lorazepam 2 Mg/Ml Vial SLOW IVP 06/28/20 11:45 2 mg Q1H PRN Administration Breakthrough agitation Methylprednisolone Sodium Succinate 20 mg 05/28/20 21:00 05/29/20 10:10 Methylprednisolone Sod Succ 40 Mg Vial IVP 20 mg Q12HR LAURIE Administration Miscellaneous Medication 1 each 05/29/20 04:00 05/29/20 04:24 Lidocaine Patch Removal 1 Each TOP 1 each 0400 LAURIE Administration Nebivolol 5 mg 05/27/20 09:00 05/29/20 10:09 Nebivolol Hcl 5 Mg Tab PO Not Given DAILY LAURIE Nicotine 7 mg 05/28/20 20:00 05/28/20 19:21 Nicotine 7 Mg Patch TD 7 mg Q24HR LAURIE Administration Ondansetron HCl 4 mg 05/28/20 19:14 05/28/20 19:20 Ondansetron Pf 4 Mg/2 Ml Vial IVP 4 mg Q6H PRN Administration Nausea/Vomiting Sodium Chloride 10 ml 05/25/20 09:00 05/29/20 10:09 Flush - Normal Saline 10 Ml Syringe IVF 10 ml Q12HR LAURIE Administration Venlafaxine HCl 150 mg 05/27/20 09:00 05/29/20 10:10 Venlafaxine Hcl Xr 150 Mg Cap PO 150 mg DAILY LAURIE Administration - Exam General Appearance: ill appearing Heart: RRR, no gallops, no rubs, normal peripheral pulses Respiratory: no wheezes, normal chest expansion, rales, rhonchi Gastrointestinal: soft, non-distended, no guarding, no rigidity Extremities: no cyanosis, no clubbing Neurological - other findings: Neuro/psych exam limited due to sedation Hosp A/P - Plan DVT proph w/SCDs Severe alcoholic hepatitis/acute hepatic failure Acute hypoxic and hypercapnic respiratory failure/sepsis due to aspiration pneumoniaintubated 05/29 Chronic alcoholism with alcohol withdrawal TASIA on CKD stage II Hyponatremia/hypomagnesemia Alcoholic cirrhosis with varices/portal hypertension/coagulopathy Anemia with elevated reticulocyte count Tobacco dependence Chronic low back pain Anxiety Penicillin allergy Plan: Continue critical care monitoring. Continue current antibiotics with IV steroids. Continue banana bag daily. Start tube feeds. Discontinue lidocaine patch. Monitor renal function closely. Reduce Lasix to once a day due to acute kidney injury. Chest x-ray and ABG in a.m. Recheck labs in a.m.
--- NOTE | 2020-05-29 19:58 | PRG ---
DATE OF SERVICE: 05/29/2020 SUBJECTIVE: Mr. Resendez was intubated early this morning for respiratory distress. I have talked with the nurses and Pulmonary. It is felt that he has some ARDS. OBJECTIVE: VITAL SIGNS: T-max less than 100.3, T current 99, respirations 18, FiO2 60%, pulse 103, blood pressure 100/59. GENERAL: The patient is sedated, cannot give any history. LUNGS: Decreased breath sounds at bases. Crackles in the bases. Rhonchi anteriorly. ABDOMEN: Soft, slightly protuberant, but definitely not distended. Bowel sounds are quiescent. No evidence of inguinal or femoral hernias. EXTREMITIES: Trace edema. LABORATORY DATA: White count 14.6, hemoglobin 8.1, platelet count 105. INR 2.9. PH 7.27, PO2 of 136. Sodium 131, potassium 4.3, BUN and creatinine are 32 and 1.7. Bilirubin 10.6, down from 13.7 a couple of days ago, direct 5. Albumin 2.7. Protein 6. Blood cultures negative since the 4th. ASSESSMENT: 1. Alcoholic hepatitis and cirrhosis. 2. Now respiratory failure, likely an aspiration pneumonia. Anaerobes need to be covered in light of his status as an alcoholic. 3. Alcohol withdrawal. 4. Thrombocytopenia likely related to portal hypertension. 5. Severe anemia with no overt signs of hemolysis. Workup for Hima disease pending. AFP was normal. B12 and folate have been normal. RECOMMENDATION: 1. Continue banana bag daily. 2. With worsening renal function, we will give albumin q.6 hours for 24 hours to help stave off hepatorenal syndrome. 3. No role for at this time. 4. Would try to avoid diuretics at this time as he probably has an active infection and would be at higher risk for developing renal failure in light of his cirrhosis. Job ID: [id number]
[2020-05-30] MEDS: Cefepime 2 GM in Sodium Chloride 0.9% 100 ML IVPB SCH ×3 (00:52→20:42)
[2020-05-30] MEDS: Albumin 25% 25 GM/100 ML BOT IVPB SCH ×4 (00:52→20:42)
[2020-05-30] MEDS: Lorazepam 2 MG/ML VIAL SLOW IVP PRN ×2 (00:53→07:17)
[2020-05-30 03:50] LABS: INR-International Normal Ratio 2.6; PTT 51.7 sec (22.9-36.1); Prothrombin Time 28.5 sec (12.0-14.7)
[2020-05-30 03:58] LABS: ALT (SGPT) 17 U/L (8-55); AST (SGOT) 46 U/L (5-34); Albumin 3.1 g/dL (3.5-5.0); Alkaline Phosphatase 50 U/L (40-110); Anion Gap 16 mmol/L (10-20); BUN (Urea Nitrogen) 47 mg/dL (8.4-25.7); Bilirubin, Total 7.7 mg/dL (0.2-1.2); Calc. Creatinine Clearance 54 mL/min (70-130); Calcium 7.9 mg/dL (7.8-10.44); Carbon Dioxide 18 mmol/L (22-29); Chloride 101 mmol/L (98-107); Estimated GFR-MDRD 35; Globulin 2.9 g/dL (2.4-3.5); Glucose 161 mg/dL (70-105); Magnesium 2.1 mg/dL (1.6-2.6); Phosphorus 4.2 mg/dL (2.3-4.7); Potassium 4.1 mmol/L (3.5-5.1); Sodium 131 mmol/L (136-145); Vancomycin, Random 24.6 ug/mL (See Comment)
[2020-05-30 05:20] LABS: Anisocytosis SLIGHT = 6-15 cells (100X) (0-5/hpf); Band 43 % (5-11); Hemoglobin 7.1 g/dL (14.0-18.0); Lymphocytes 5 % (21-51); MDiff Complete? YES; Mean Corpuscular HGB CONC 32.5 g/dL (32.0-36.0); Mean Platelet Volume 9.5 fL (7.4-10.4); Monocytes 5 % (0-10); Neutrophil 47 % (42-75); Platelet Count 92 thou/uL (130-400); Platelet Morphology Comment Appears Decreased; RBC Distribution Width 24.1 % (11.5-14.5); Red Blood Cell (RBC) Count 1.69 mill/uL (4.70-6.10); White Blood Cell (WBC) Count 14.3 thou/uL (4.8-10.8)
--- NOTE | 2020-05-30 05:57 | OP ---
DATE OF PROCEDURE: 05/29/2020 PROCEDURE PERFORMED: Fiberoptic bronchoscopy with intubation. DESCRIPTION OF PROCEDURE: The patient was in the supine position. A jaw thrust maneuver was performed with a bite block in place and his vocal cords were easily visualized. Bronchoscope was introduced through his cords and the endotracheal tube was advanced and secured above the main kia. Bronchoscope was reintroduced once he had been Ambu bagged. His right lower lobe, right upper lobe, right middle lobe, left lower lobe, left upper lobe orifices were entered and were free of obstructions or aspirated contents. Tolerated procedure well. No immediate complications. Job ID: [id number]
[2020-05-30 06:45] LABS: Actual Bicarbonate (HCO3a) 20.9 mEq/L (22-28); Base Excess (BEa) -5.7 mEq/L (-2.0 to +3.0); CO2 Tension 47.3 mmHg (35.0-45.0); Calcium, Ionized (arterial) 1.12 mmol/L (1.12-1.30); Carboxyhemoglobin (COHb) 0.4 gm% (0.0-3.0); Hemoglobin (Hb) 7.4 g/dL (14.0-18.0); Potassium - ABG Lab 4.05 mmol/L (3.70-5.30); pH, Arterial 7.26 (7.35-7.45)
[2020-05-30 06:46] LABS: O2 Tension (PaO2), arterial 53.2 mmHg (> 80.0)
[2020-05-30 06:47] LABS: ALV-art Gradient 315.475 mmHg (0-20); Puncture Site RRA
[2020-05-30] MEDS: Nebivolol HCl 5 MG TAB PO SCH (07:08)
[2020-05-30] MEDS: Folic Acid 1 MG TAB PO SCH (07:17)
[2020-05-30] MEDS: Multivitamin W/ Minerals 1 TAB PO SCH (07:17)
[2020-05-30] MEDS: methylPREDNISolone Sod Succ 40 MG VIAL IVP SCH ×2 (07:18→20:45)
[2020-05-30] MEDS ORDERED: Vecuronium 10 MG VIAL ONE ×2 (07:43→11:26)
[2020-05-30] MEDS ORDERED: Sterile Water 10 ML ONE (07:44)
[2020-05-30] MEDS ORDERED: Midazolam HCl 2 mg/2 ml Vial ONE (07:44)
[2020-05-30] MEDS: Vecuronium 10 MG VIAL ONE (07:47)
[2020-05-30] MEDS: Propofol 1,000 MG/100 ML VIAL IV PRN (07:51)
--- NOTE | 2020-05-30 08:15 | RAD ---
EXAM: Single view of the chest HISTORY: Respiratory failure COMPARISON: 05/29/2020 FINDINGS: Single view of the chest shows a normal sized cardiomediastinal silhouette. The lines and tubes are unchanged in position. There are diffuse multifocal infiltrates in the lungs. These are stable compared to the prior examination. No pneumothorax is seen. No acute osseous abnormality. IMPRESSION: Multifocal infiltrates
[2020-05-30] MEDS: Hydrocortisone 1% Cream 30 GM TUBE TOP SCH ×2 (08:54→20:43)
[2020-05-30] MEDS: Clotrimazole 1 % Cream 30 GM TUBE TOP SCH ×2 (08:54→20:43)
[2020-05-30] MEDS ORDERED: Furosemide 40 MG/4 ML VIAL SLOW IVP SCH (09:00)
[2020-05-30] MEDS ORDERED: VANC/ABX IVPB PRN (09:37)
[2020-05-30] MEDS: fentaNYL Citrate/PF 2,000 MCG in Sodium Chloride 0.9% 60 ML IV SCH (09:39)
[2020-05-30] MEDS ORDERED: Phytonadione 10 MG/ML AMP PO SCH ×2 (11:45)
[2020-05-30] MEDS: Multivitamins, Adult 10 ML, Folic Acid 1 MG, Thiamine HCl 100 MG in Dextrose 5 %-0.45 %... IV SCH (11:52)
[2020-05-30] MEDS ORDERED: Pantoprazole 40 MG VIAL IVP SCH (12:15)
[2020-05-30] MEDS: Pantoprazole 40 MG VIAL IVP SCH (12:43)
[2020-05-30] MEDS ORDERED: Norepinephrine 8 MG/0.9% NS 250 ML ONE (13:05)
[2020-05-30 16:05] LABS: Vancomycin, Random 20.2 ug/mL (See Comment)
[2020-05-30] MEDS: Vecuronium 10 MG VIAL IV PRN (16:13)
--- NOTE | 2020-05-30 16:54 | PRG ---
DATE OF SERVICE: 05/30/2020 SUBJECTIVE: Oli Resendez is requiring paralytics. OBJECTIVE: VITAL SIGNS: He is afebrile, Heart rate is in the 90s, blood pressure 115/65, respiratory rates in the 20s. LUNGS: clear anteriorly. Heart: regular rhythm. ABDOMEN: Soft and protuberant. EXTREMITIES: without asymmetry. DIAGNOSTIC STUDIES: Chest radiograph shows diffuse infiltrates. LABORATORY DATA: White count 14.3, hemoglobin 7.1, and platelets 92,000. Sodium 131, potassium 4.1, chloride 101, bicarb 18, BUN 47, and creatinine 1.96. A pH 7.26, CO2 of 47, and pO2 53. Intake and outputs remarkable for urine output is 654 mL. He has had very little urine output today. ASSESSMENT AND PLAN: I suspect he is developing hepatorenal syndrome, that combined with acute respiratory distress syndrome and pneumonia, likely lead to his demise. His girlfriend and his sister had been informed. Critical care time 30 min. Job ID: [id number] [id number]
[2020-05-30] MEDS ORDERED: Norepinephrine 8 MG/0.9% NS 250 ML IVPB SCH (18:00)
--- NOTE | 2020-05-30 22:12 | PDOC.HOSPP ---
- Subjective Encounter Date: 05/30/20 Encounter Time: 09:45 non-verbal Subjective: Patient seen and examined for multiorgan failure. On mechanical ventilation. Family at the bedside. - Objective Vital Signs & Weight: Vital Signs (12 hours) Temp Pulse Resp BP Pulse Ox 05/30/20 20:00 24 H 05/30/20 19:00 98.7 F 05/30/20 18:53 88 111/59 L 05/30/20 15:52 99 F 05/30/20 15:03 24 H 05/30/20 14:23 89 126/70 05/30/20 14:20 91 24 H 99 05/30/20 10:22 80 87/54 L 05/30/20 10:21 84 24 H 99 Weight Admit Weight 210 lb Weight 210 lb 5.136 oz Most Recent Monitor Data Heart Rate from ECG 91 NIBP 101/51 NIBP BP-Mean 67 Respiration from ECG 24 SpO2 100 I&O: 05/29/20 05/30/20 05/31/20 06:59 06:59 06:59 Intake Total 2093 2384.3 1155 Output Total 725 1354 430 Balance 1368 1030.3 725 Result Diagrams: 05/31/20 04:00 05/31/20 04:00 Additional Labs: Accuchecks 05/30/20 05/30/20 05/30/20 20:54 11:21 00:45 POC Glucose 152 H 142 H 157 H Abnormal Lab Results - Last 48 hrs 05/29/20 03:31: Ceruloplasmin 12.2 L 05/29/20 11:25: Bicarbonate Actual 21.7 L, ABG pH 7.27 L, ABG pCO2 48.4 H, ABG pO2 136.6 H, ABG O2 Sat (Measured) 98.7 H, ABG O2 Content 12.0 L, ABG Base Excess -5.0 L, ABG Hematocrit 25.0 L, ABG Hemoglobin 8.5 L, A-a O2 Gradient 302.000 H, Sodium 128 L, Ionized Calcium 1.09 L 05/29/20 15:29: Vancomycin Trough 31.1 H* 05/30/20 03:19: Sodium 131 L, Carbon Dioxide 18 L, BUN 47 H, Creatinine 1.96 H, Total Bilirubin 7.7 H, AST 46 H, Albumin 3.1 L, Albumin/Globulin Ratio 1.1 L 05/30/20 03:19: WBC 14.3 H, RBC 1.69 L, Hgb 7.1 L, Hct 21.8 L, MCV 129.0 H, MCH 42.0 H, RDW 24.1 H, Plt Count 92 L, Band Neuts % (Manual) 43 H, Lymphocytes % (Manual) 5 L, Plt Morphology Comment Appears Decreased L 05/30/20 03:19: PT 28.5 H, APTT 51.7 H 05/30/20 06:30: Bicarbonate Actual 20.9 L, ABG pH 7.26 L, ABG pCO2 47.3 H, ABG pO2 53.2 L*, ABG O2 Sat (Measured) 82.6 L*, ABG O2 Content 8.6 L, ABG Base Excess -5.7 L, ABG Hematocrit 22.0 L, ABG Hemoglobin 7.4 L, ABG Oxyhemoglobin 82.0 L, ABG Deoxyhemoglobin 17.3 H, A-a O2 Gradient 315.475 H, Sodium 127 L Microbiology - Entire Visit 05/25/20 08:11 Venous blood - Right Hand Blood Culture - Final NO GROWTH IN 5 DAYS 05/25/20 08:10 Venous blood - Left Arm Blood Culture - Final NO GROWTH IN 5 DAYS Radiology Reviewed by me: Yes (Chest x-raybilateral infiltrate) EKG Reviewed by me: Yes (Sinus rhythm) Hospitalist ROS - Review of Systems ROS unobtainable: due to mental status - Medication Medications: Active Medications Generic Name Dose Route Start Last Admin Trade Name Freq PRN Reason Stop Dose Admin Albumin Human 25 gm 05/29/20 14:00 05/30/20 20:42 Albumin 25% 25 Gm/100 Ml Bot IVPB 07/11/20 14:01 25 gm Q6H LAURIE Administration Albuterol/Ipratropium 3 ml 05/28/20 19:00 05/30/20 18:52 Ipratropium/Albuterol Sulfate 3 Ml Neb NEB 3 ml [id number] LAURIE Administration Clotrimazole 0 gm 05/26/20 21:00 05/30/20 20:43 Clotrimazole 1 % Cream 30 Gm Tube TOP 1 applic BID LAURIE Administration Folic Acid 1 mg 05/25/20 09:00 05/30/20 07:17 Folic Acid 1 Mg Tab PO 1 mg DAILY LAURIE Administration Hydrocortisone/Aloe 1.5 gm 05/25/20 21:00 05/30/20 20:43 Hydrocortisone 1% Cream 30 Gm Tube TOP 1 applic BID LAURIE Administration Fentanyl Citrate 2,000 mcg/ 100 mls @ 0 mls/hr 05/29/20 11:45 05/30/20 09:39 Sodium Chloride IV 06/28/20 11:45 100 mls INF LAURIE Administration Protocol Per Protocol Multivitamins 10 ml/ Folic 1,011.2 mls @ 45 mls/hr 05/30/20 10:40 05/30/20 11:52 Acid 1 mg/ Thiamine HCl 100 mg IV 1,011.2 mls / Dextrose/Sodium Chloride Q24HR LAURIE Administration Cefepime HCl 2 gm/ Sodium 100 mls @ 200 mls/hr 05/30/20 21:00 05/30/20 20:42 Chloride IVPB 100 mls 0900,2100 LAURIE Administration Iron/Minerals/Multivitamins 1 tab 05/25/20 09:00 05/30/20 07:17 Multivitamin W/ Minerals 1 Tab PO 1 tab DAILY LAURIE Administration Lactulose 10 gm 05/29/20 09:00 05/30/20 07:17 Lactulose 20 Gm/30 Ml Udcup PO 10 gm DAILY LAURIE Administration Lorazepam 1 mg 05/27/20 18:02 05/29/20 03:26 Lorazepam 1 Mg Tab PO 1 mg Q6H PRN Administration ASE PROTOCOL Lorazepam 2 mg 05/29/20 11:45 05/30/20 07:17 Lorazepam 2 Mg/Ml Vial SLOW IVP 06/28/20 11:45 2 mg Q1H PRN Administration Breakthrough agitation Methylprednisolone Sodium Succinate 20 mg 05/28/20 21:00 05/30/20 20:45 Methylprednisolone Sod Succ 40 Mg Vial IVP 20 mg Q12HR LAURIE Administration Nebivolol 5 mg 05/27/20 09:00 05/30/20 07:08 Nebivolol Hcl 5 Mg Tab PO Not Given DAILY LAURIE Ondansetron HCl 4 mg 05/28/20 19:14 05/28/20 19:20 Ondansetron Pf 4 Mg/2 Ml Vial IVP 4 mg Q6H PRN Administration Nausea/Vomiting Pantoprazole Sodium 40 mg 05/31/20 09:00 05/30/20 12:43 Pantoprazole 40 Mg Vial IVP 40 mg DAILY LAURIE Administration Propofol 1,000 mg 05/29/20 11:45 05/30/20 07:51 Propofol 1,000 Mg/100 Ml Vial IV 06/28/20 11:45 1,000 mg INF PRN Administration TO ACHIEVE GOAL RASS Protocol Sodium Chloride 10 ml 05/25/20 09:00 05/30/20 20:45 Flush - Normal Saline 10 Ml Syringe IVF 10 ml Q12HR LAURIE Administration Vecuronium [place] 10 mg 05/30/20 11:34 05/30/20 16:13 Vecuronium 10 Mg Vial IV 10 mg Q1H PRN Administration NEUOMUSCULAR BLOCKADE/VENTILAT Venlafaxine HCl 150 mg 05/27/20 09:00 05/29/20 10:10 Venlafaxine Hcl Xr 150 Mg Cap PO 150 mg DAILY LAURIE Administration - Exam General Appearance: ill appearing Heart: RRR, no gallops, no rubs, normal peripheral pulses Respiratory: normal chest expansion, rales, rhonchi Respiratory - other findings: Endotracheal tube Gastrointestinal: soft, no guarding, no rigidity, diminished bowl sounds Extremities: no cyanosis, no clubbing Neurological - other findings: Neuro/psych cannot assess due to current mentation Hosp A/P - Plan plan discussed w/ family, DVT proph w/SCDs Severe alcoholic hepatitis/acute hepatic failure Acute hypoxic and hypercapnic respiratory failure/sepsis due to aspiration pneumoniaintubated 05/29 Chronic alcoholism with alcohol withdrawal TASIA on CKD stage II Hyponatremia/hypomagnesemia Alcoholic cirrhosis with varices/portal hypertension/coagulopathy Anemia with elevated reticulocyte count Tobacco dependence Chronic low back pain Anxiety Penicillin allergy Plan: Continue IV cefepime with vancomycin. Add Levaquin for atypical coverage. Continue nebulizer treatment. Add vitamin K to correct coagulopathy. Continue IV Solu-Medrol. IV albumin. Hold Lasix. Continue banana bag. Start tube fe eding.
[2020-05-31] MEDS: Albumin 25% 25 GM/100 ML BOT IVPB SCH ×4 (02:16→19:51)
[2020-05-31] MEDS: Vecuronium 10 MG VIAL IV PRN ×4 (02:48→16:47)
[2020-05-31] MEDS: Propofol 1,000 MG/100 ML VIAL IV PRN (04:10)
[2020-05-31 05:15] LABS: INR-International Normal Ratio 2.7; PTT 45.3 sec (22.9-36.1); Prothrombin Time 29.4 sec (12.0-14.7)
[2020-05-31 05:25] LABS: ALT (SGPT) 18 U/L (8-55); AST (SGOT) 48 U/L (5-34); Albumin 3.5 g/dL (3.5-5.0); Alkaline Phosphatase 64 U/L (40-110); Anion Gap 17 mmol/L (10-20); BUN (Urea Nitrogen) 62 mg/dL (8.4-25.7); Bilirubin, Total 6.6 mg/dL (0.2-1.2); Calc. Creatinine Clearance 47 mL/min (70-130); Calcium 8.4 mg/dL (7.8-10.44); Carbon Dioxide 19 mmol/L (22-29); Chloride 99 mmol/L (98-107); Estimated GFR-MDRD 30; Globulin 2.6 g/dL (2.4-3.5); Glucose 157 mg/dL (70-105); Magnesium 2.2 mg/dL (1.6-2.6); Phosphorus 4.2 mg/dL (2.3-4.7); Potassium 3.6 mmol/L (3.5-5.1); Protein, Total 6.1 g/dL (6.0-8.3); Sodium 131 mmol/L (136-145)
[2020-05-31] MEDS: fentaNYL Citrate/PF 2,000 MCG in Sodium Chloride 0.9% 60 ML IV SCH (05:25)
[2020-05-31 05:49] LABS: Anisocytosis SLIGHT = 6-15 cells (100X) (0-5/hpf); Band 41 % (5-11); Burr Cells SLIGHT = 2-5 cells (100X) (0-1/hpf); MDiff Complete? YES; Macrocytosis MODERATE=16-30 cells (100X) (0-5/hpf); Mean Corpuscular HGB CONC 32.8 g/dL (32.0-36.0); Mean Corpuscular Hemoglobin 41.5 pg (27.0-31.0); Mean Platelet Volume 9.2 fL (7.4-10.4); Monocytes 6 % (0-10); Myelocyte 1 % (0-0); Neutrophil 52 % (42-75); Platelet Count 104 thou/uL (130-400); Platelet Morphology Comment Appears Decreased; RBC Distribution Width 23.6 % (11.5-14.5); Red Blood Cell (RBC) Count 1.68 mill/uL (4.70-6.10); Target Cells SLIGHT = 2-5 cells (100X) (0-1/hpf); White Blood Cell (WBC) Count 15.9 thou/uL (4.8-10.8)
--- NOTE | 2020-05-31 07:08 | CON ---
DATE OF CONSULTATION: 05/30/2020 CONSULTING PHYSICIAN: Dr. Frederick. REASON FOR CONSULTATION: Acute kidney injury. REASON FOR ADMISSION: Jaundice. HISTORY OF PRESENT ILLNESS: This is a 59-year-old male with history of hypertension, depression, alcohol use, came to the hospital with jaundice alcoholic hepatitis. Yesterday got worse and transferred to the ICU and got intubated and currently suspect a pneumonia versus ARDS and is being cared at ICU unit. Family was at the bedside and updated. The patient remains intubated. PAST MEDICAL HISTORY: Positive for; 1. Hypertension. 2. Depression. 3. Allergic rhinitis. 4. Alcohol use. HOME MEDICATIONS: Reviewed. ALLERGIES: PENICILLIN. SOCIAL HISTORY: History of alcohol use and tobacco use at present. No illicit drug reported. FAMILY HISTORY: No history of kidney disease. REVIEW OF SYSTEMS: Could not be obtained as he is intubated. PHYSICAL EXAMINATION: GENERAL: This is a well-built male, intubated. VITAL SIGNS: Temperature 99.4, pulse 84, respiratory rate 20, blood pressure 97/54. HEENT: Intubated. CV: S1, S2 heard. RESPIRATORY: Clear. GI: Abdomen is obese, distended. MUSCULOSKELETAL: No tenderness. No edema. DERMATOLOGIC: No skin rash. NEUROLOGIC: Intubated. LABORATORY DATA: Hemoglobin 7.1, potassium 4.1, BUN 47, creatinine 1.96. ASSESSMENT AND PLAN: 1. Acute kidney injury on chronic kidney disease stage 3 with worsening labs. Agree with reducing the Lasix dose, but he remains fluid overloaded with multiorgan failure. 2. Hyponatremia. 3. Acidosis. 4. Possible hepatorenal syndrome. 5. Anemia. 6. Acute hypoxic respiratory failure. Prognosis is guarded. Consider albumin. We will continue the case along with you. Avoid nephrotoxins. Continue supportive care including antibiotics. We will follow. Job ID: [id number]
[2020-05-31 07:20] LABS: Actual Bicarbonate (HCO3a) 18.8 mEq/L (22-28); Base Excess (BEa) -5.1 mEq/L (-2.0 to +3.0); CO2 Tension 30.1 mmHg (35.0-45.0); Calcium, Ionized (arterial) 1.13 mmol/L (1.12-1.30); Carboxyhemoglobin (COHb) 0.1 gm% (0.0-3.0); Hemoglobin (Hb) 7.2 g/dL (14.0-18.0); Potassium - ABG Lab 3.59 mmol/L (3.70-5.30); pH, Arterial 7.41 (7.35-7.45)
[2020-05-31] MEDS: methylPREDNISolone Sod Succ 40 MG VIAL IVP SCH ×2 (07:21→20:26)
[2020-05-31] MEDS: Cefepime 2 GM in Sodium Chloride 0.9% 100 ML IVPB SCH ×2 (07:21→20:26)
[2020-05-31] MEDS: Multivitamin W/ Minerals 1 TAB PO SCH (07:22)
[2020-05-31] MEDS: Folic Acid 1 MG TAB PO SCH (07:22)
[2020-05-31] MEDS: Hydrocortisone 1% Cream 30 GM TUBE TOP SCH ×2 (07:22→20:27)
[2020-05-31] MEDS: Pantoprazole 40 MG VIAL IVP SCH (07:22)
[2020-05-31] MEDS: Clotrimazole 1 % Cream 30 GM TUBE TOP SCH ×2 (07:22→20:27)
[2020-05-31 07:25] LABS: ALV-art Gradient 187.775 mmHg (0-20); O2 Tension (PaO2), arterial 59.8 mmHg (> 80.0); Puncture Site RRA
--- NOTE | 2020-05-31 10:22 | RAD ---
CHEST 1 VIEW: INDICATION: History of daily CCU examination on ventilator. COMPARISON: Prior exam dated 05/30/2020. FINDINGS: Cardiomegaly with pulmonary vascular congestion persists. Bilateral airspace disease is stable. ET tube and gastric catheter are unchanged. No pneumothorax is evident. IMPRESSION: Stable exam. POS: BH
[2020-05-31] MEDS ORDERED: Vancomycin 1 GM in Premix Bag 1 BAG IVPB SCH ×2 (11:00)
[2020-05-31] MEDS: Phytonadione 10 MG/ML AMP PO SCH (11:11)
[2020-05-31] MEDS: Multivitamins, Adult 10 ML, Folic Acid 1 MG, Thiamine HCl 100 MG in Dextrose 5 %-0.45 %... IV SCH (12:45)
--- NOTE | 2020-05-31 14:36 | PRG ---
DATE OF SERVICE: 05/31/2020 SUBJECTIVE: The patient was seen and examined in ICU. Remains intubated. Girlfriend at the bedside. OBJECTIVE: GENERAL: This is a well-built male, intubated. VITAL SIGNS: Temperature 97.9, pulse 82, respiratory rate blood pressure 96/50. HEENT: Atraumatic, normocephalic. CHEST: Clear anteriorly. GI: Abdomen is soft. CV: S1, S2 heard. MUSCULOSKELETAL: 1+ edema. LABORATORY DATA: Potassium 3.6, BUN is 62, and creatinine is 2.24. ASSESSMENT AND PLAN: 1. Acute kidney injury on chronic kidney stage 3 with worsening labs, most likely secondary to hepatorenal syndrome. Follow with GI for further management. Consider midodrine and octreotide. 2. Multiorgan failure. 3. Acute hypoxic respiratory failure. 4. Acidosis. 5. Possible hepatorenal syndrome. 6. Anemia of chronic disease. Prognosis is guarded. Consider midodrine, octreotide. We will follow the case along with other consultants. No acute indication for dialysis even though he remains poor candidate for dialysis. Job ID: [id number]
[2020-05-31 14:39] LABS: Hemoglobin 8.1 g/dL (14.0-18.0); Platelet Count 94 thou/uL (130-400)
--- NOTE | 2020-05-31 15:54 | PRG ---
DATE OF SERVICE: 05/31/2020 SUBJECTIVE: Oli Resendez remains sedated and mechanically ventilated. He had decrease in urine output yesterday, but it has picked up again today. OBJECTIVE: VITAL SIGNS: Heart rates in the 80s, blood pressure 95/43, respiratory rate is 24. LUNGS: Clear anteriorly. HEART: Regular rhythm. ABDOMEN: Soft. EXTREMITIES: Unchanged. LABORATORY DATA: White count 15.9, hemoglobin 7.0. He was transfused, his hemoglobin is 8.1, platelets 104,000. Sodium 131, potassium 3.6, chloride 99, bicarb 19, BUN 62, creatinine 2.24. Intake and outputs positive 1051. Blood cultures remain negative. Chest x-ray stable with bilateral infiltrates. IMPRESSION: 1. Respiratory failure. 2. Pneumonia with ARDS. 3. Alcohol withdrawal. 4. Acute alcoholic hepatitis. His bilirubin is coming down. His liver enzymes remain barely elevated. 5. Acute on chronic kidney disease. Hopefully with improvement in his urine output . His family has decided to make him do not resuscitate patient. We will continue with aggressive care short of heroic measures. Critical care time 30 min. Job ID: [id number] MTDD
--- NOTE | 2020-05-31 20:01 | PDOC.HOSPP ---
- Subjective Encounter Date: 05/31/20 Encounter Time: 14:00 non-verbal Subjective: Patient seen and examined for respiratory failure/alcoholic hepatitis with renal failure. On mechanical ventilation. Off pressors. - Objective Vital Signs & Weight: Vital Signs (12 hours) Temp Pulse Pulse Resp BP Pulse Ox 05/31/20 18:32 85 24 H 100 05/31/20 17:33 98.6 F 05/31/20 14:33 81 05/31/20 14:00 24 H 05/31/20 11:59 97.9 F 05/31/20 11:00 97.9 F 90 24 H 112/59 L 05/31/20 10:39 84 05/31/20 09:50 98.3 F 84 24 H 105/55 L Weight Admit Weight 210 lb Weight 212 lb 1.6 oz Most Recent Monitor Data Heart Rate from ECG 83 NIBP 93/43 NIBP BP-Mean 59 Respiration from ECG 24 SpO2 100 I&O: 05/30/20 05/31/20 06/01/20 06:59 06:59 06:59 Intake Total 2384.3 2336.0 1740 Output Total 1354 1285 440 Balance 1030.3 1051.0 1300 Result Diagrams: 06/01/20 04:10 06/01/20 04:10 Additional Labs: Accuchecks 05/31/20 05/31/20 05/30/20 14:18 09:28 20:54 POC Glucose 139 H 143 H 152 H EKG Reviewed by me: Yes (Sinus rhythm on telemetry) Hospitalist ROS - Review of Systems ROS unobtainable: due to mental status - Medication Medications: Active Medications Generic Name Dose Route Start Last Admin Trade Name Freq PRN Reason Stop Dose Admin Albumin Human 25 gm 05/29/20 14:00 05/31/20 19:51 Albumin 25% 25 Gm/100 Ml Bot IVPB 07/11/20 14:01 25 gm Q6H LAURIE Administration Albuterol/Ipratropium 3 ml 05/31/20 10:30 05/31/20 18:32 Ipratropium/Albuterol Sulfate 3 Ml Neb NEB 3 ml [id number] LAURIE Administration Clotrimazole 0 gm 05/26/20 21:00 05/31/20 07:22 Clotrimazole 1 % Cream 30 Gm Tube TOP 1 applic BID LAURIE Administration Folic Acid 1 mg 05/25/20 09:00 05/31/20 07:22 Folic Acid 1 Mg Tab PO 1 mg DAILY LAURIE Administration Hydrocortisone/Aloe 1.5 gm 05/25/20 21:00 05/31/20 07:22 Hydrocortisone 1% Cream 30 Gm Tube TOP 1 applic BID LAURIE Administration Fentanyl Citrate 2,000 mcg/ 100 mls @ 0 mls/hr 05/29/20 11:45 05/31/20 05:25 Sodium Chloride IV 06/28/20 11:45 100 mls INF LAURIE Administration Protocol Per Protocol Multivitamins 10 ml/ Folic 1,011.2 mls @ 45 mls/hr 05/30/20 10:40 05/31/20 12:45 Acid 1 mg/ Thiamine HCl 100 mg IV 1,011.2 mls / Dextrose/Sodium Chloride Q24HR LAURIE Administration Cefepime HCl 2 gm/ Sodium 100 mls @ 200 mls/hr 05/30/20 21:00 05/31/20 07:21 Chloride IVPB 100 mls 0900,2100 LAURIE Administration Levofloxacin 250 mg/ Device 50 mls @ 100 mls/hr 05/31/20 10:00 05/31/20 09:12 IVPB 50 mls 1000 LAURIE Administration Iron/Minerals/Multivitamins 1 tab 05/25/20 09:00 05/31/20 07:22 Multivitamin W/ Minerals 1 Tab PO 1 tab DAILY LAURIE Administration Lorazepam 1 mg 05/27/20 18:02 05/29/20 03:26 Lorazepam 1 Mg Tab PO 1 mg Q6H PRN Administration ASE PROTOCOL Lorazepam 2 mg 05/29/20 11:45 05/30/20 07:17 Lorazepam 2 Mg/Ml Vial SLOW IVP 06/28/20 11:45 2 mg Q1H PRN Administration Breakthrough agitation Methylprednisolone Sodium Succinate 20 mg 05/28/20 21:00 05/31/20 07:21 Methylprednisolone Sod Succ 40 Mg Vial IVP 20 mg Q12HR LAURIE Administration Ondansetron HCl 4 mg 05/28/20 19:14 05/28/20 19:20 Ondansetron Pf 4 Mg/2 Ml Vial IVP 4 mg Q6H PRN Administration Nausea/Vomiting Pantoprazole Sodium 40 mg 05/31/20 09:00 05/31/20 07:22 Pantoprazole 40 Mg Vial IVP 40 mg DAILY LAURIE Administration Phytonadione 5 mg 05/31/20 09:00 05/31/20 11:11 Phytonadione 10 Mg/Ml Amp PO 06/01/20 09:01 5 mg DAILY LAURIE Administration Propofol 1,000 mg 05/29/20 11:45 05/31/20 04:10 Propofol 1,000 Mg/100 Ml Vial IV 06/28/20 11:45 1,000 mg INF PRN Administration TO ACHIEVE GOAL RASS Protocol Sodium Chloride 10 ml 05/25/20 09:00 05/31/20 07:23 Flush - Normal Saline 10 Ml Syringe IVF 10 ml Q12HR LAURIE Administration Vecuronium [place] 10 mg 05/30/20 11:34 05/31/20 16:47 Vecuronium 10 Mg Vial IV 10 mg Q1H PRN Administration NEUOMUSCULAR BLOCKADE/VENTILAT Venlafaxine HCl 150 mg 05/27/20 09:00 05/29/20 10:10 Venlafaxine Hcl Xr 150 Mg Cap PO 150 mg DAILY LAURIE Administration - Exam General Appearance: ill appearing Neck: supple, no JVD Heart: RRR, no gallops Respiratory: no wheezes, rales, rhonchi Gastrointestinal: soft, no guarding, no rigidity Extremities: no cyanosis Neurological - other findings: Neuro/psych cannot assess due to current mentation Hosp A/P - Plan DVT proph w/SCDs Severe alcoholic hepatitis/acute hepatic failure Acute hypoxic and hypercapnic respiratory failure/sepsis due to aspiration pneumoniaintubated 05/29 Chronic alcoholism with alcohol withdrawal TASIA on CKD stage II Hypotensive shock requiring pressors Hyponatremia/hypomagnesemia Alcoholic cirrhosis with varices/portal hypertension/coagulopathy Anemia with elevated reticulocyte count Tobacco dependence Chronic low back pain Anxiety Penicillin allergy Plan: Received 2 units of PRBC. Continue vitamin K supplementation. Continue cefepime, Levaquin with vancomycin. Monitor vancomycin level. Continue IV Solu-Medrol. Continue IV albumin. Continue IV PPIs. Continue vitamin K. A.m. labs. Tube feeds.
[2020-05-31 22:52] LABS: Hemoglobin 7.9 g/dL (14.0-18.0); Platelet Count 89 thou/uL (130-400)
[2020-05-31 23:10] LABS: Vancomycin, Random 23.3 ug/mL (See Comment)
[2020-06-01] MEDS ORDERED: Vancomycin 1 GM in Premix Bag 1 BAG IVPB SCH ×2
[2020-06-01] MEDS: fentaNYL Citrate/PF 2,000 MCG in Sodium Chloride 0.9% 60 ML IV SCH ×2 (01:55→21:31)
[2020-06-01] MEDS: Albumin 25% 25 GM/100 ML BOT IVPB SCH ×4 (02:22→20:01)
[2020-06-01] MEDS: Propofol 1,000 MG/100 ML VIAL IV PRN (02:22)
[2020-06-01] MEDS: Vecuronium 10 MG VIAL IV PRN ×4 (03:09→16:24)
[2020-06-01] MEDS: Lorazepam 2 MG/ML VIAL SLOW IVP PRN ×2 (03:09→10:51)
[2020-06-01 04:45] LABS: INR-International Normal Ratio 2.5; PTT 44.1 sec (22.9-36.1); Prothrombin Time 27.5 sec (12.0-14.7)
[2020-06-01 05:04] LABS: ALT (SGPT) 20 U/L (8-55); AST (SGOT) 53 U/L (5-34); Albumin 3.6 g/dL (3.5-5.0); Alkaline Phosphatase 48 U/L (40-110); Anion Gap 14 mmol/L (10-20); BUN (Urea Nitrogen) 80 mg/dL (8.4-25.7); Bilirubin, Total 7.7 mg/dL (0.2-1.2); Calc. Creatinine Clearance 42 mL/min (70-130); Calcium 8.6 mg/dL (7.8-10.44); Carbon Dioxide 20 mmol/L (22-29); Chloride 101 mmol/L (98-107); Estimated GFR-MDRD 26; Globulin 2.2 g/dL (2.4-3.5); Glucose 142 mg/dL (70-105); Protein, Total 5.8 g/dL (6.0-8.3); Sodium 131 mmol/L (136-145)
[2020-06-01 05:06] LABS: Hemoglobin 7.5 g/dL (14.0-18.0); Mean Corpuscular HGB CONC 33.1 g/dL (32.0-36.0); Mean Corpuscular Hemoglobin 38.3 pg (27.0-31.0); Mean Platelet Volume 9.2 fL (7.4-10.4); Platelet Count 90 thou/uL (130-400); RBC Distribution Width 27.5 % (11.5-14.5); Red Blood Cell (RBC) Count 1.96 mill/uL (4.70-6.10); White Blood Cell (WBC) Count 11.7 thou/uL (4.8-10.8)
[2020-06-01 05:24] LABS: Anisocytosis MODERATE=16-30 cells (100X) (0-5/hpf); Burr Cells SLIGHT = 2-5 cells (100X) (0-1/hpf); Platelet Morphology Comment Appears Decreased
[2020-06-01 05:25] LABS: Band 25 % (5-11); Lymphocytes 8 % (21-51); MDiff Complete? YES; Monocytes 7 % (0-10); Myelocyte 2 % (0-0); Neutrophil 58 % (42-75)
[2020-06-01 06:54] LABS: CO2 Tension 29.7 mmHg (35.0-45.0); Calcium, Ionized (arterial) 1.15 mmol/L (1.12-1.30); Carboxyhemoglobin (COHb) 0.2 gm% (0.0-3.0); Hemoglobin (Hb) 8.1 g/dL (14.0-18.0); O2 Tension (PaO2), arterial 113.1 mmHg (> 80.0); Potassium - ABG Lab 3.99 mmol/L (3.70-5.30)
[2020-06-01 06:55] LABS: Puncture Site RRA
[2020-06-01 06:56] LABS: ALV-art Gradient 134.975 mmHg (0-20)
[2020-06-01] MEDS: Cefepime 2 GM in Sodium Chloride 0.9% 100 ML IVPB SCH ×2 (07:17→20:01)
[2020-06-01] MEDS: methylPREDNISolone Sod Succ 40 MG VIAL IVP SCH ×2 (07:18→20:03)
[2020-06-01] MEDS: Folic Acid 1 MG TAB PO SCH (07:18)
[2020-06-01] MEDS: Clotrimazole 1 % Cream 30 GM TUBE TOP SCH ×2 (07:18→21:31)
[2020-06-01] MEDS: Multivitamin W/ Minerals 1 TAB PO SCH (07:18)
[2020-06-01] MEDS: Pantoprazole 40 MG VIAL IVP SCH (07:18)
[2020-06-01] MEDS: Hydrocortisone 1% Cream 30 GM TUBE TOP SCH ×2 (07:19→21:30)
--- NOTE | 2020-06-01 08:07 | RAD ---
EXAM: CHEST ONE VIEW HISTORY: Daily follow-up evaluation. Patient on ventilator. COMPARISON: 05/31/2020 FINDINGS: Endotracheal tube and nasogastric tubes remain in place. Cardiac silhouette is magnified by projectio n. Increased interstitial and alveolar opacities are seen in the lungs bilaterally greater on the right. The airspace opacities within the mid and upper lung zones do appear improved from prior exam. No other interval change. IMPRESSION: Mild improvement in aeration within the lungs bilaterally, but persistent interstitial and scattered patchy airspace opacities are seen within the lungs. Findings could be related to improving viral pneumonitis.
[2020-06-01 10:25] LABS: Reticulocyte Count 2.9 % (0.5-1.5)
[2020-06-01 10:37] LABS: Vancomycin, Random 19.9 ug/mL (See Comment)
[2020-06-01] MEDS: Midodrine HCl 5 MG TAB PO SCH ×3 (10:51→20:02)
[2020-06-01] MEDS: Phytonadione 10 MG/ML AMP PO SCH (11:18)
--- NOTE | 2020-06-01 11:19 | PRG ---
DATE OF SERVICE: 06/01/2020 SUBJECTIVE: Patient was seen and examined in ICU. Remains intubated. OBJECTIVE: GENERAL: This is a well-built male, intubated. VITAL SIGNS: Temperature 98.7, pulse 94, respiratory rate LABORATORY DATA: Potassium 4.0, BUN is 80, creatinine is 2.57. ASSESSMENT AND PLAN: 1. Acute kidney injury on chronic kidney disease stage 3 with worsening labs. We will add midodrine. Prognosis poor. Updated the family. 2. Multiorgan failure. 3. Acute hypoxic respiratory failure. 4. Hepatorenal syndrome. 5. Anemia of chronic disease. 6. Renal function continues to get worse. Remains nonoliguric though but prognosis remains guarded. We will add midodrine. Continue renewed albumin. We will follow. Job ID: [id number]
[2020-06-01] MEDS: Multivitamins, Adult 10 ML, Folic Acid 1 MG, Thiamine HCl 100 MG in Dextrose 5 %-0.45 %... IV SCH (11:36)
--- NOTE | 2020-06-01 16:20 | PRG ---
DATE OF SERVICE: 06/01/2020 SUBJECTIVE: This is a 59-year-old male, hospitalized over the last week with painless jaundice. He had a history of alcohol abuse, underwent DTs, and also has aspiration pneumonia. He developed respiratory failure over the weekend and was intubated. He is on the ventilator and is not sedated. He was seen by Dr. Pruitt for Nephrology evaluation because of kidney failure. At the present time, he is on the ventilator and IV fluids and antibiotics. OBJECTIVE: VITAL SIGNS: Afebrile. His pulse is 81, blood pressure is 98/49. HEENT: He is jaundiced. CARDIOVASCULAR SYSTEM: Normal heart sounds. LUNGS: Good air entry on both sides. ABDOMEN: Soft and nondistended. Abdomen is nontender. LABORATORY DATA: The most recent lab data from today showed CBC with WBC of 11,700, hemoglobin 7.5, hematocrit 22.7, MCV 116, platelet count is 90,000. Chem-7; sodium 131, potassium 4, chloride 101, bicarbonate 20, BUN is 18, creatinine 2.57, glucose 142, bilirubin down to 7.7, AST 53, ALT 20, alkaline phosphatase is 48. IMPRESSION: 1. Aspiration pneumonia, acute respiratory distress syndrome, respiratory failure. 2. Acute kidney injury, seen by Nephrology. 3. Alcoholic hepatitis, liver disease. RECOMMENDATIONS: 1. Follow up labs. 2. We will follow from a distance as his problem seems to be more of a respiratory failure and kidney failure. Please call me back if any new changes or need any assistance. I will follow the patient from a distance. Job ID: [id number]
--- NOTE | 2020-06-01 17:24 | PRG ---
DATE OF SERVICE: 06/01/2020 OBJECTIVE: VITAL SIGNS: Mr. Resendez's heart rates in 80s, blood pressure 101/50, respiratory rates in the 20s, oximetry is 100%. LUNGS: Clear anteriorly. HEART: Regular rhythm. ABDOMEN: Soft. EXTREMITIES: Without asymmetry. Intake and output, positive 2074. He is varying between 15 to 30 mL an hour, his urine output. His creatinine jumped up a little bit as well today up to 2.57. I met with girlfriend and family, discussed his prognosis. He is still quite guarded. If his hemoglobin drops anymore tomorrow, we will transfuse, and it is 7.5 today. PH 7.4, CO2 is 29, PO2 is 113. Surprisingly, his chest radiographs improved dramatically, so I suspect a lot of his pulmonary infiltrates is noncardiogenic pulmonary edema. Echocardiogram was done. Results are now back. His ejection fraction was normal, but he does have a dilated left atrium, but there is no report of mitral regurgitation or mitral stenosis. He had only trace mitral regurgitation. He may have some component of diastolic heart failure dilating his left atrium. We will continue with aggressive supportive care short of heroic measures. I have asked the family and girlfriend just taking one day at a time. Critical care time 30 minutes. Job ID: [id number]
--- NOTE | 2020-06-01 18:46 | CON ---
DATE OF CONSULTATION: 06/01/2020 REASON FOR CONSULTATION: Sepsis. HISTORY OF PRESENT ILLNESS: A 59-year-old patient with history of hypertension and cirrhosis, first admission to this hospital on May 25 when he presented with a history of alcoholism and skin rashes, which developed recently. Initially, he was felt to be to have shingles and was given acyclovir without improvement. He became more jaundiced and he was then transferred to [facility] and on arrival, his blood pressure was 120/60, heart rate 95, respirations 16, temperature 98.5, and O2 saturation 100. He had evidence of jaundice and some bruising in the back of his neck. Lungs were clear. Heart exam showed tachycardia, but no murmurs or S3/S4. The back skin is described as having "shingles" lesions. Initial labs; the white cell count 8.7, hemoglobin 7.1, and platelets 83,000 with 6% bands. INR is 2.1. A pH of 7.47, pCO2 of 30, and pO2 of 53. Sodium 128, creatinine 0.84, bilirubin was 12, AST 52, and albumin 3.2. Tumour marker was normal. Urinalysis 0 to 3 wbc's and autoimmune panel was negative. SARS-CoV was negative, PCR and antibody test results. Imaging studies include an abdomen and pelvis CT scan with liver cirrhosis, multifocal abdominal varices, sludge in gallbladder, ground-glass opacity noted in the right lung base. He had a CT of chest, which showed patchy ground-glass opacities throughout the left upper lobe in right lung and rounded opacities in right lung base. Repeat chest x-ray done today with mild improvement in aeration of lungs bilaterally, but persistence of sketchy interstitial and scattered patchy airspace opacities within the lungs. PAST MEDICAL HISTORY: Hypertension, depression, alcoholism, and rhinitis. SOCIAL HISTORY: Never smoker. ALLERGIES: PENICILLIN. FAMILY HISTORY: Noncontributory. CURRENT MEDICATIONS: 1. Cefepime. 2. Fentanyl. 3. Fluticasone. 4. Levofloxacin. 5. Methylprednisolone. 6. Norepinephrine. 7. Vancomycin. PHYSICAL EXAMINATION: VITAL SIGNS: T-max 100.3, blood pressure 101/50, heart rate 87, respiratory rate 24, and O2 saturation 100. SKIN: Shows a jaundice. The skin lesions are not consistent with herpes zoster. HEENT: Scleral icterus. Constricted pupils. Orotracheal intubation. LUNGS: Coarse breath sounds. HEART: S1 and S2. Regular rate. ABDOMEN: Not distended. No ascites. No bladder distention. Infiltrates more dense in the right lower lobe. LABORATORY DATA: Hepatobiliary scan, diffuse hepatocellular dysfunction. ASSESSMENT AND PLAN: Alcoholism, advanced liver disease with synthetic function markedly decreased, portal hypertension, gastroesophageal varices, coagulopathy secondary to liver synthetic function deficiency, pulmonary infiltrates either from infectious etiology or hepatopulmonary syndrome. Among infectious etiologies, included would be community-acquired pneumonia with bacterial pathogen or viral infection. COVID has been tested one time via respiratory secretions and once via serology. We will go ahead and submit one more serology to settle this once for all. Current antimicrobial regimen is felt to be adequate for now. Job ID: [id number] [facility]
--- NOTE | 2020-06-01 20:15 | PDOC.HOSPP ---
- Subjective Encounter Date: 06/01/20 Encounter Time: 10:00 non-verbal Subjective: Patient seen and examined for respiratory failure/hepatic failure with renal dysfunction. Remains on mechanical ventilation. Tube feedings on hold due to increased residual. - Objective Vital Signs & Weight: Vital Signs (12 hours) Temp Pulse Resp Pulse Ox 06/01/20 18:30 81 24 H 100 06/01/20 14:30 81 06/01/20 14:00 98.0 F 06/01/20 10:40 92 Weight Admit Weight 210 lb Weight 214 lb 11.2 oz Most Recent Monitor Data Heart Rate from ECG 80 NIBP 95/49 NIBP BP-Mean 64 Respiration from ECG 24 SpO2 100 I&O: 05/31/20 06/01/20 06/02/20 06:59 06:59 06:59 Intake Total 2336.0 3095.3 1331 Output Total 1285 820 205 Balance 1051.0 2275.3 1126 Result Diagrams: 06/01/20 04:10 06/01/20 04:10 Additional Labs: Accuchecks 06/01/20 09:46 POC Glucose 138 H Abnormal Lab Results - Last 48 hrs 05/26/20 08:26: Crossmatch See Detail 05/31/20 04:00: Sodium 131 L, Carbon Dioxide 19 L, BUN 62 H, Creatinine 2.24 H, Total Bilirubin 6.6 H, AST 48 H 05/31/20 04:00: PT 29.4 H, APTT 45.3 H 05/31/20 04:00: WBC 15.9 H, RBC 1.68 L, Hgb 7.0 L, Hct 21.3 L, MCV 127.0 H, MCH 41.5 H, RDW 23.6 H, Plt Count 104 L, Band Neuts % (Manual) 41 H, Myelocytes % 1 H, Plt Morphology Comment Appears Decreased L, Macrocytosis MODERATE=16-30 cells H 05/31/20 07:05: Bicarbonate Actual 18.8 L, ABG pCO2 30.1 L, ABG pO2 59.8 L*, ABG O2 Sat (Measured) 89.6 L, ABG O2 Content 9.1 L, ABG Base Excess -5.1 L, ABG Hematocrit 21.0 L, ABG Hemoglobin 7.2 L, ABG Oxyhemoglobin 89.2 L, ABG Deoxyhemoglobin 10.4 H, A-a O2 Gradient 187.775 H, Potassium 3.59 L, Sodium 128 L 05/31/20 08:34: Crossmatch See Detail 05/31/20 14:25: Hgb 8.1 L, Hct 24.0 L, Plt Count 94 L 05/31/20 22:31: Hgb 7.9 L, Hct 23.0 L, Plt Count 89 L 06/01/20 04:10: PT 27.5 H, APTT 44.1 H 06/01/20 04:10: WBC 11.7 H, RBC 1.96 L, Hgb 7.5 L, Hct 22.7 L, MCV 116.0 H, MCH 38.3 H, RDW 27.5 H, Plt Count 90 L, Band Neuts % (Manual) 25 H, Lymphocytes % (Manual) 8 L, Myelocytes % 2 H, Plt Morphology Comment Appears Decreased L, Anisocytosis MODERATE=16-30 cells H 06/01/20 04:10: Sodium 131 L, Carbon Dioxide 20 L, BUN 80 H, Creatinine 2.57 H, Total Bilirubin 7.7 H, AST 53 H, Serum Total Protein 5.8 L, Globulin 2.2 L 06/01/20 06:50: Bicarbonate Actual 18.0 L, ABG pCO2 29.7 L, ABG pO2 113.1 H, ABG O2 Sat (Measured) 98.1 H, ABG O2 Content 11.3 L, ABG Base Excess -6.0 L, ABG Hematocrit 24.0 L, ABG Hemoglobin 8.1 L, A-a O2 Gradient 134.975 H, Sodium 128 L 06/01/20 10:04: Retic Count 2.9 H Microbiology - Entire Visit 05/25/20 08:11 Venous blood - Right Hand Blood Culture - Final NO GROWTH IN 5 DAYS 05/25/20 08:10 Venous blood - Left Arm Blood Culture - Final NO GROWTH IN 5 DAYS Radiology Reviewed by me: Yes (Chest x-raybilateral infiltrates) EKG Reviewed by me: Yes (Sinus rhythm on telemetry) Hospitalist ROS - Review of Systems ROS unobtainable: due to mental status - Medication Medications: Active Medications Generic Name Dose Route Start Last Admin Trade Name Freq PRN Reason Stop Dose Admin Albumin Human 25 gm 05/29/20 14:00 06/01/20 20:01 Albumin 25% 25 Gm/100 Ml Bot IVPB 07/11/20 14:01 25 gm Q6H LAURIE Administration Albuterol/Ipratropium 3 ml 05/31/20 10:30 06/01/20 18:30 Ipratropium/Albuterol Sulfate 3 Ml Neb NEB 3 ml [id number] LAURIE Administration Clotrimazole 0 gm 05/26/20 21:00 06/01/20 07:18 Clotrimazole 1 % Cream 30 Gm Tube TOP 1 applic BID LAURIE Administration Folic Acid 1 mg 05/25/20 09:00 06/01/20 07:18 Folic Acid 1 Mg Tab PO 1 mg DAILY LAURIE Administration Hydrocortisone/Aloe 1.5 gm 05/25/20 21:00 06/01/20 07:19 Hydrocortisone 1% Cream 30 Gm Tube TOP 1 applic BID LAURIE Administration Fentanyl Citrate 2,000 mcg/ 100 mls @ 0 mls/hr 05/29/20 11:45 06/01/20 01:55 Sodium Chloride IV 06/28/20 11:45 100 mls INF LAURIE Administration Protocol Per Protocol Multivitamins 10 ml/ Folic 1,011.2 mls @ 45 mls/hr 05/30/20 10:40 06/01/20 11:36 Acid 1 mg/ Thiamine HCl 100 mg IV 1,011.2 mls / Dextrose/Sodium Chloride Q24HR LAURIE Administration Cefepime HCl 2 gm/ Sodium 100 mls @ 200 mls/hr 05/30/20 21:00 06/01/20 20:01 Chloride IVPB 100 mls 0900,2100 LAURIE Administration Levofloxacin 250 mg/ Device 50 mls @ 100 mls/hr 05/31/20 10:00 06/01/20 10:52 IVPB 50 mls 1000 LAURIE Administration Iron/Minerals/Multivitamins 1 tab 05/25/20 09:00 06/01/20 07:18 Multivitamin W/ Minerals 1 Tab PO 1 tab DAILY LAURIE Administration Lorazepam 2 mg 05/29/20 11:45 06/01/20 10:51 Lorazepam 2 Mg/Ml Vial SLOW IVP 06/28/20 11:45 2 mg Q1H PRN Administration Breakthrough agitation Methylprednisolone Sodium Succinate 20 mg 05/28/20 21:00 06/01/20 20:03 Methylprednisolone Sod Succ 40 Mg Vial IVP 20 mg Q12HR LAURIE Administration Midodrine 5 mg 06/01/20 09:00 06/01/20 20:02 Midodrine Hcl 5 Mg Tab PO 5 mg TID LAURIE Administration Ondansetron HCl 4 mg 05/28/20 19:14 05/28/20 19:20 Ondansetron Pf 4 Mg/2 Ml Vial IVP 4 mg Q6H PRN Administration Nausea/Vomiting Pantoprazole Sodium 40 mg 05/31/20 09:00 06/01/20 07:18 Pantoprazole 40 Mg Vial IVP 40 mg DAILY LAURIE Administration Propofol 1,000 mg 05/29/20 11:45 06/01/20 02:22 Propofol 1,000 Mg/100 Ml Vial IV 06/28/20 11:45 1,000 mg INF PRN Administration TO ACHIEVE GOAL RASS Protocol Sodium Chloride 10 ml 05/25/20 09:00 06/01/20 07:19 Flush - Normal Saline 10 Ml Syringe IVF 10 ml Q12HR LAURIE Administration Vecuronium [place] 10 mg 05/30/20 11:34 06/01/20 16:24 Vecuronium 10 Mg Vial IV 10 mg Q1H PRN Administration NEUOMUSCULAR BLOCKADE/VENTILAT Venlafaxine HCl 150 mg 05/27/20 09:00 05/29/20 10:10 Venlafaxine Hcl Xr 150 Mg Cap PO 150 mg DAILY LAURIE Administration - Exam General Appearance: ill appearing Neck: supple, no JVD Heart: RRR, no gallops, no rubs, normal peripheral pulses Respiratory: normal chest expansion, rales, rhonchi Respiratory - other findings: Endotracheal tube Gastrointestinal: soft, normal bowel sounds, no guarding, no rigidity Extremities: no cyanosis, no clubbing Neurological - other findings: Neuro/psychexam limited due to current mentation Hosp A/P - Plan DVT proph w/SCDs Severe alcoholic hepatitis/acute hepatic failure Acute hypoxic and hypercapnic respiratory failure/sepsis due to aspiration pneumoniaintubated 05/29 Chronic alcoholism with alcohol withdrawal TASIA on CKD stage II/hepatorenal syndrome Hypotensive shock requiring pressors Hyponatremia/hypomagnesemia 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 Monitor vancomycin level. Continue IV Solu-Medrol. Midodrine added today. Continue IV albumin. Tube feedings as tolerated. Continue IV PPIs. Plan discussed with the family at the bedside.
[2020-06-01] MEDS ORDERED: Vancomycin HCl 500 MG in Sodium Chloride 0.9% 100 ML IVPB SCH (22:00)
[2020-06-02] MEDS: Vecuronium 10 MG VIAL IV PRN (00:12)
[2020-06-02] MEDS: Lorazepam 2 MG/ML VIAL SLOW IVP PRN ×2 (00:13→12:10)
[2020-06-02] MEDS: Albumin 25% 25 GM/100 ML BOT IVPB SCH ×4 (01:21→16:16)
[2020-06-02] MEDS: Propofol 1,000 MG/100 ML VIAL IV PRN ×2 (03:24→22:57)
[2020-06-02 04:16] LABS: ALT (SGPT) 24 U/L (8-55); AST (SGOT) 51 U/L (5-34); Albumin 4.1 g/dL (3.5-5.0); Alkaline Phosphatase 50 U/L (40-110); Anion Gap 16 mmol/L (10-20); BUN (Urea Nitrogen) 104 mg/dL (8.4-25.7); Bilirubin, Total 7.5 mg/dL (0.2-1.2); Calc. Creatinine Clearance 36 mL/min (70-130); Carbon Dioxide 18 mmol/L (22-29); Chloride 101 mmol/L (98-107); Estimated GFR-MDRD 21; Globulin 2.2 g/dL (2.4-3.5); Glucose 164 mg/dL (70-105); Potassium 4.4 mmol/L (3.5-5.1); Protein, Total 6.3 g/dL (6.0-8.3); Sodium 131 mmol/L (136-145)
[2020-06-02 04:44] LABS: Band 22 % (5-11); Hemoglobin 7.8 g/dL (14.0-18.0); Lymphocytes 3 % (21-51); MDiff Complete? YES; Macrocytosis MODERATE=16-30 cells (100X) (0-5/hpf); Mean Platelet Volume 9.3 fL (7.4-10.4); Monocytes 7 % (0-10); Myelocyte 2 % (0-0); Neutrophil 66 % (42-75); Platelet Count 91 thou/uL (130-400); Platelet Morphology Comment Appears Decreased; Red Blood Cell (RBC) Count 2.06 mill/uL (4.70-6.10); White Blood Cell (WBC) Count 10.5 thou/uL (4.8-10.8)
[2020-06-02 07:04] LABS: Actual Bicarbonate (HCO3a) 16.3 mEq/L (22-28); Base Excess (BEa) -7.5 mEq/L (-2.0 to +3.0); CO2 Tension 27.2 mmHg (35.0-45.0); Calcium, Ionized (arterial) 1.17 mmol/L (1.12-1.30); Carboxyhemoglobin (COHb) 0.3 gm% (0.0-3.0); Hemoglobin (Hb) 8.8 g/dL (14.0-18.0); O2 Tension (PaO2), arterial 127.9 mmHg (> 80.0); Potassium - ABG Lab 4.32 mmol/L (3.70-5.30)
[2020-06-02 07:05] LABS: Puncture Site RRA
--- NOTE | 2020-06-02 08:00 | RAD ---
RADIOGRAPH CHEST 1 VIEW: DATE: 06/02/2020 TIME: 5:33 AM HISTORY: 59-year-old male with respiratory failure COMPARISON: 06/01/2020 FINDINGS: ETT and NGT remain. Alveolar infiltrates at bilateral lower lung zones. Diffuse mild interstitial den sities throughout the rest of lung zones. No pneumothorax. No interval change overall. IMPRESSION: No interval change overall
[2020-06-02] MEDS: Midodrine HCl 5 MG TAB PO SCH ×3 (09:16→21:55)
[2020-06-02] MEDS: Pantoprazole 40 MG VIAL IVP SCH ×2 (09:21→09:23)
[2020-06-02] MEDS: Folic Acid 1 MG TAB PO SCH (09:22)
[2020-06-02] MEDS: methylPREDNISolone Sod Succ 40 MG VIAL IVP SCH ×2 (09:23→21:56)
[2020-06-02] MEDS: Clotrimazole 1 % Cream 30 GM TUBE TOP SCH ×2 (09:25→21:59)
[2020-06-02] MEDS: Hydrocortisone 1% Cream 30 GM TUBE TOP SCH ×2 (09:25→21:58)
[2020-06-02] MEDS: Multivitamin W/ Minerals 1 TAB PO SCH (09:39)
--- NOTE | 2020-06-02 11:23 | PRG ---
DATE OF SERVICE: 06/02/2020 SUBJECTIVE: The patient is seen and examined in the ICU. Girlfriend was at the bedside, sister over the phone, and the patient still not making much urine. His chest x-ray seems to be better. OBJECTIVE: GENERAL: This is a well-built male, intubated. VITAL SIGNS: Temperature 97.8, pulse 87, respiratory rate 24, blood pressure 100/49. HEENT: Intubated. CV: S1 and S2 heard. RESPIRATORY: Clear. GI: Distended MUSCULOSKELETAL: 1+ edema. DERMATOLOGIC: No skin rash. NEUROLOGIC: Intubated. LABORATORY DATA: Potassium 4.4, BUN is 104, creatinine is 3.03. ASSESSMENT AND PLAN: 1. Acute kidney injury on chronic kidney stage 3 with worsening labs. BUN is currently 104. I did talk with the family and also the ICU team need for dialysis, especially with a high BUN. His chest x-ray seems to be better. Blood pressure is also stable depends on the liver condition to determine his overall prognosis. 2. Midodrine added yesterday. 3. Hepatorenal syndrome. We will continue midodrine. Follow up with GI. 4. Albumin, stop. 5. Multiorgan failure. 6. Acute hypoxic respiratory failure. 7. Anemia of chronic disease. I did discuss with the family and ICU team on need for dialysis. Family wants to discuss further and before they agree to dialysis, I did explain the risk and benefit. I also told the bedside nurse to call me if the family decided to pursue dialysis. We will consult Surgery and arrange dialysis. We will continue close followup. Avoid nephrotoxins. Continue supportive care for now and continue discussion with the family. Plan discussed with Dr. Broussard too. Job ID: [id number]
[2020-06-02] MEDS ORDERED: Multivitamins, Adult 10 ML, Folic Acid 1 MG, Thiamine HCl 100 MG in Dextrose 5 % And 0.... IV SCH (12:00)
[2020-06-02 14:27] LABS: HBSAB Concentration Less than 8.00 mIU/mL; HBSAg Index 0.47 S/CO (0-0.99); HBSAg Index 0.51 S/CO (0-0.99); Hep B Core Total Ab Non-Reactive (NonReactive); Hep B Core Total Index 0.08 S/CO (0-0.79); Hep B Surf AB Non-Reactive (NonReactive); Hep B Surf Ag Non-Reactive S/CO (NonReactive); Hep C IgG Ab Non-Reactive (NonReactive); Hep C Index 0.06 S/CO (0-0.79)
--- NOTE | 2020-06-02 14:43 | OP ---
DATE OF PROCEDURE: 06/02/2020 PREOPERATIVE DIAGNOSES: 1. Acute kidney injury. 2. Hepatorenal syndrome. POSTOPERATIVE DIAGNOSES: 1. Acute kidney injury. 2. Hepatorenal syndrome. PROCEDURE PERFORMED: Placement of right femoral triple-lumen central venous catheter for urgent dialysis. INDICATIONS FOR PROCEDURE: A 59-year-old man, admitted with acute kidney injury, complicated by acute hepatorenal syndrome. I was asked to place a temporary dialysis access for hemodialysis. DESCRIPTION OF PROCEDURE: Informed consent was obtained from the patient's power of assistant county attorney. The patient was placed in supine position. Right groin was sterilely prepped and draped in usual fashion. Right femoral artery was palpated. The skin medial to this was anesthetized with 1% lidocaine. Right femoral vein was cannulated with an 18-gauge introducer needle, returning dark venous blood. Guidewire was advanced through the needle and placed in the right femoral vein without resistance. The needle was withdrawn over the guidewire. Stab incision was made adjacent to the guidewire using 11 scalpel. A dilator was passed over the guidewire, dilating the subcutaneous tissues. The dilator was removed and a triple-lumen Trialysis catheter was advanced over the guidewire and placed in the right femoral vein without resistance down to the hub. The guidewire was removed. Dark venous blood was aspirated from all three ports, which were flushed first with saline followed by heparin. Catheter was secured to right groin using 3-0 nylon suture at two points. Sterile dressing was applied. The patient tolerated this procedure without any apparent complication and remains hemodynamically stable following completion of procedure. Job ID: [id number]
[2020-06-02] MEDS ORDERED: Albumin 25% 25 GM/100 ML BOT IVPB SCH (15:45)
[2020-06-02] MEDS: Metoclopramide HCl 10 MG/2 ML VIAL IVP SCH ×2 (16:14→23:00)
[2020-06-02] MEDS: fentaNYL Citrate/PF 2,000 MCG in Sodium Chloride 0.9% 60 ML IV SCH (17:25)
--- NOTE | 2020-06-02 19:39 | PRG ---
DATE OF SERVICE: 06/02/2020 SUBJECTIVE: Mr. Resendez remains mechanically ventilated. OBJECTIVE: VITAL SIGNS: Heart rates in the 90s, respiratory rates in 20s, oximetry is 100%, FiO2 is 40%, blood pressure 100/57. LUNGS: Clear. HEART: Regular rhythm. ABDOMEN: Soft. LABORATORY DATA: White count 10.5, hemoglobin 7.8, platelets 91,000. Sodium 131, potassium 4.4, chloride 101, bicarb 18, BUN 104, creatinine 3.03. IMPRESSION: 1. Acute fatty liver with cirrhosis. 2. Hepatorenal syndrome, renal failure. 3. Pulmonary edema that is resolving. 4. Alcohol withdrawal, likely resolving. He will need to be dialyzed for a few days before we wake him up and extubate him in my opinion. Critical care time, 30 minutes. I met with his girlfriend and answered all her questions. Job ID: [id number]
[2020-06-02 21:41] LABS: Vancomycin, Random 17.6 ug/mL (See Comment)
[2020-06-02] MEDS: Cefepime 2 GM in Sodium Chloride 0.9% 100 ML IVPB SCH (21:55)
[2020-06-02] MEDS ORDERED: Vancomycin HCl 500 MG in Sodium Chloride 0.9% 100 ML IVPB SCH (22:00)
--- NOTE | 2020-06-02 22:42 | PDOC.HOSPP ---
- Subjective Encounter Date: 06/02/20 Encounter Time: 09:15 Subjective: Patient seen and examined for multiorgan failure. Remains on mechanical ventilation. Poor urine output. Family the bedside. - Objective Vital Signs & Weight: Vital Signs (12 hours) Temp Pulse Resp BP Pulse Ox 06/02/20 21:45 92 24 H 97 06/02/20 20:00 100 06/02/20 18:17 97 24 H 100 06/02/20 18:00 24 H 06/02/20 16:00 98.0 F 24 H 06/02/20 15:30 74 95/49 L 06/02/20 15:28 74 24 H 99 06/02/20 14:00 24 H 06/02/20 12:00 98.0 F 24 H Weight Admit Weight 210 lb Weight 226 lb 14.4 oz Most Recent Monitor Data Heart Rate from ECG 89 NIBP 88/37 NIBP BP-Mean 54 Respiration from ECG 24 SpO2 100 I&O: 06/01/20 06/02/20 06/03/20 06:59 06:59 06:59 Intake Total 3095.3 2921.6 1280.7 Output Total 820 660 320 Balance 2275.3 2261.6 960.7 Result Diagrams: 06/03/20 04:30 06/03/20 04:30 Additional Labs: Abnormal Lab Results - Last 48 hrs 06/01/20 06:50: Bicarbonate Actual 18.0 L, ABG pCO2 29.7 L, ABG pO2 113.1 H, ABG O2 Sat (Measured) 98.1 H, ABG O2 Content 11.3 L, ABG Base Excess -6.0 L, ABG Hematocrit 24.0 L, ABG Hemoglobin 8.1 L, A-a O2 Gradient 134.975 H, Sodium 128 L 06/01/20 10:04: Retic Count 2.9 H 06/02/20 03:35: RBC 2.06 L, Hgb 7.8 L, Hct 23.7 L, MCV 115.0 H, MCH 38.0 H, RDW 27.0 H, Plt Count 91 L, Band Neuts % (Manual) 22 H, Lymphocytes % (Manual) 3 L, Myelocytes % 2 H, Plt Morphology Comment Appears Decreased L, Macrocytosis MODERATE=16-30 cells H 06/02/20 03:35: Sodium 131 L, Carbon Dioxide 18 L, BUN 104 H, Creatinine 3.03 H, Total Bilirubin 7.5 H, AST 51 H, Globulin 2.2 L 06/02/20 06:40: Bicarbonate Actual 16.3 L, ABG pCO2 27.2 L, ABG pO2 127.9 H, ABG O2 Sat (Measured) 98.5 H, ABG O2 Content 12.4 L, ABG Base Excess -7.5 L, ABG Hematocrit 26.0 L, ABG Hemoglobin 8.8 L, A-a O2 Gradient 123.300 H, Sodium 129 L Microbiology - Entire Visit 05/25/20 08:11 Venous blood - Right Hand Blood Culture - Final NO GROWTH IN 5 DAYS 05/25/20 08:10 Venous blood - Left Arm Blood Culture - Final NO GROWTH IN 5 DAYS Radiology Reviewed by me: Yes (Chest x-rayimprovement) EKG Reviewed by me: Yes (Sinus rhythm on telemetry) Hospitalist ROS - Review of Systems ROS unobtainable: due to mental status - Medication Medications: Active Medications Generic Name Dose Route Start Last Admin Trade Name Freq PRN Reason Stop Dose Admin Albuterol/Ipratropium 3 ml 05/31/20 10:30 06/02/20 21:45 Ipratropium/Albuterol Sulfate 3 Ml Neb NEB 3 ml [id number] LAURIE Administration Clotrimazole 0 gm 05/26/20 21:00 06/02/20 21:59 Clotrimazole 1 % Cream 30 Gm Tube TOP 1 applic BID LAURIE Administration Folic Acid 1 mg 05/25/20 09:00 06/02/20 09:22 Folic Acid 1 Mg Tab PO 1 mg DAILY LAURIE Administration Hydrocortisone/Aloe 1.5 gm 05/25/20 21:00 06/02/20 21:58 Hydrocortisone 1% Cream 30 Gm Tube TOP 1 applic BID LAURIE Administration Fentanyl Citrate 2,000 mcg/ 100 mls @ 0 mls/hr 05/29/20 11:45 06/02/20 17:25 Sodium Chloride IV 06/28/20 11:45 100 mls INF LAURIE Administration Protocol Per Protocol Levofloxacin 250 mg/ Device 50 mls @ 100 mls/hr 05/31/20 10:00 06/02/20 09:27 IVPB 50 mls 1000 LAURIE Administration Cefepime HCl 2 gm/ Sodium 100 mls @ 200 mls/hr 06/02/20 21:00 06/02/20 21:55 Chloride IVPB 100 mls 2100 LAURIE Administration Multivitamins 10 ml/ Folic 1,011.2 mls @ 45 mls/hr 06/02/20 12:00 06/02/20 13:53 Acid 1 mg/ Thiamine HCl 100 mg IV 1,011.2 mls / Dextrose/Sodium Chloride Q24HR LAURIE Administration Vancomycin HCl 500 mg/ Sodium 100 mls @ 100 mls/hr 06/02/20 22:00 06/02/20 22:08 Chloride IVPB 06/02/20 23:59 100 mls 2200 LAURIE Administration Iron/Minerals/Multivitamins 1 tab 05/25/20 09:00 06/02/20 09:39 Multivitamin W/ Minerals 1 Tab PO 1 tab DAILY LAURIE Administration Lorazepam 2 mg 05/29/20 11:45 06/02/20 12:10 Lorazepam 2 Mg/Ml Vial SLOW IVP 06/28/20 11:45 2 mg Q1H PRN Administration Breakthrough agitation Methylprednisolone Sodium Succinate 20 mg 05/28/20 21:00 06/02/20 21:56 Methylprednisolone Sod Succ 40 Mg Vial IVP 20 mg Q12HR LAURIE Administration Metoclopramide HCl 10 mg 06/02/20 18:00 06/02/20 16:14 Metoclopramide Hcl 10 Mg/2 Ml Vial IVP 10 mg Q6HR LAURIE Administration Midodrine 5 mg 06/01/20 09:00 06/02/20 21:55 Midodrine Hcl 5 Mg Tab PO 5 mg TID LAURIE Administration Ondansetron HCl 4 mg 05/28/20 19:14 05/28/20 19:20 Ondansetron Pf 4 Mg/2 Ml Vial IVP 4 mg Q6H PRN Administration Nausea/Vomiting Pantoprazole Sodium 40 mg 05/31/20 09:00 06/02/20 09:23 Pantoprazole 40 Mg Vial IVP 40 mg DAILY LAURIE Administration Propofol 1,000 mg 05/29/20 11:45 06/02/20 03:24 Propofol 1,000 Mg/100 Ml Vial IV 06/28/20 11:45 1,000 mg INF PRN Administration TO ACHIEVE GOAL RASS Protocol Sodium Chloride 10 ml 05/25/20 09:00 06/02/20 21:56 Flush - Normal Saline 10 Ml Syringe IVF 10 ml Q12HR LAURIE Administration Vecuronium [place] 10 mg 05/30/20 11:34 06/02/20 00:12 Vecuronium 10 Mg Vial IV 10 mg Q1H PRN Administration NEUOMUSCULAR BLOCKADE/VENTILAT Venlafaxine HCl 150 mg 05/27/20 09:00 05/29/20 10:10 Venlafaxine Hcl Xr 150 Mg Cap PO 150 mg DAILY LAURIE Administration - Exam General Appearance: ill appearing Neck: supple, no JVD Heart: RRR, no rubs Respiratory: rales, rhonchi Gastrointestinal: soft, no guarding, no rigidity Extremities: no cyanosis Hosp A/P - Plan DVT proph w/SCDs (No heparin due to coagulopathy) Severe alcoholic hepatitis/acute hepatic failure Acute hypoxic and hypercapnic respiratory failure/sepsis due to aspiration pneumoniaintubated 05/29 Chronic alcoholism with alcohol withdrawal TASIA on CKD stage II/hepatorenal syndrome Hypotensive shock requiring pressors Hyponatremia/hypomagnesemia 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 Patient will get dialysis access today. Continue cefepime, Levaquin with vancomycindose adjusted for renal function. Monitor H&H. Continue tube feeds as tolerated. Continue albumin. On midodrine. Continue IV PPIs. A.m. labs including chest x-ray and ABG. Plan discussed with the family at the bedside in detail.
[2020-06-03 05:05] LABS: ALT (SGPT) 27 U/L (8-55); AST (SGOT) 53 U/L (5-34); Albumin 3.7 g/dL (3.5-5.0); Alkaline Phosphatase 64 U/L (40-110); Anion Gap 16 mmol/L (10-20); BUN (Urea Nitrogen) 95 mg/dL (8.4-25.7); Bilirubin, Total 7.1 mg/dL (0.2-1.2); Calc. Creatinine Clearance 37 mL/min (70-130); Calcium 8.6 mg/dL (7.8-10.44); Carbon Dioxide 20 mmol/L (22-29); Chloride 101 mmol/L (98-107); Estimated GFR-MDRD 21; Globulin 2.1 g/dL (2.4-3.5); Glucose 148 mg/dL (70-105); Potassium 4.4 mmol/L (3.5-5.1); Protein, Total 5.8 g/dL (6.0-8.3); Sodium 133 mmol/L (136-145)
[2020-06-03 05:15] LABS: Band 17 % (5-11); Eosinophils 5 % (0-10); Hemoglobin 7.4 g/dL (14.0-18.0); Lymphocytes 8 % (21-51); MDiff Complete? YES; Mean Corpuscular HGB CONC 33.5 g/dL (32.0-36.0); Mean Corpuscular Hemoglobin 38.5 pg (27.0-31.0); Mean Platelet Volume 9.2 fL (7.4-10.4); Metamyelocyte 3 % (0-0); Monocytes 6 % (0-10); Neutrophil 61 % (42-75); Platelet Count 78 thou/uL (130-400); Platelet Morphology Comment Appears Decreased; RBC Distribution Width 26.1 % (11.5-14.5); Red Blood Cell (RBC) Count 1.92 mill/uL (4.70-6.10); White Blood Cell (WBC) Count 13.6 thou/uL (4.8-10.8)
[2020-06-03] MEDS: Metoclopramide HCl 10 MG/2 ML VIAL IVP SCH ×4 (05:50→23:48)
[2020-06-03 08:15] LABS: Base Excess (BEa) -6.8 mEq/L (-2.0 to +3.0); CO2 Tension 28.5 mmHg (35.0-45.0); Hemoglobin (Hb) 9.9 g/dL (14.0-18.0); O2 Tension (PaO2), arterial 87.4 mmHg (> 80.0); pH, Arterial 7.39 (7.35-7.45)
[2020-06-03 08:16] LABS: Analyzer IN Cardio OR; Calcium, Ionized (arterial) 1.17 mmol/L (1.12-1.30); Potassium - ABG Lab 4.39 mmol/L (3.70-5.30); Puncture Site RRA
--- NOTE | 2020-06-03 08:16 | RAD ---
XR Chest 1 View Portable History: Ventilated patient Comparison: Radiograph prior day Findings: Endotracheal tube tip at the clavicular level . Enteric tube tip below diaphragm although out of field of view. Moderate effusions. Bibasilar and p erihilar opacities are similar. When comparing to the May 31, 2020 exam there's been improved aeration of the right upper lobe. Impression: Similar examination from yesterday although slight improved aeration of the right upper l obe from the May 31, 2020 exam.
[2020-06-03 08:17] LABS: ALV-art Gradient 162.175 mmHg (0-20)
[2020-06-03] MEDS: methylPREDNISolone Sod Succ 40 MG VIAL IVP SCH ×2 (09:16→20:24)
[2020-06-03] MEDS: Folic Acid 1 MG TAB PO SCH (09:24)
[2020-06-03] MEDS: Midodrine HCl 5 MG TAB PO SCH ×3 (09:24→20:24)
[2020-06-03] MEDS: Multivitamin W/ Minerals 1 TAB PO SCH (09:24)
[2020-06-03] MEDS: Hydrocortisone 1% Cream 30 GM TUBE TOP SCH ×2 (09:25→20:24)
[2020-06-03] MEDS: Clotrimazole 1 % Cream 30 GM TUBE TOP SCH ×2 (09:27→20:23)
[2020-06-03] MEDS: Propofol 1,000 MG/100 ML VIAL IV PRN (11:49)
[2020-06-03] MEDS: Multivitamins, Adult 10 ML in Sodium Chloride 0.9% 500 ML IV SCH (12:35)
[2020-06-03] MEDS: fentaNYL Citrate/PF 2,000 MCG in Sodium Chloride 0.9% 60 ML IV SCH (13:27)
--- NOTE | 2020-06-03 14:18 | PRG ---
DATE OF SERVICE: 06/03/2020 SUBJECTIVE: Mr. Resendez remains mechanically ventilated. OBJECTIVE: VITAL SIGNS: Heart rates in the 80s, blood pressure 95/48, respiratory rate is 24. LUNGS: Clear. HEART: Regular rhythm. ABDOMEN: Soft. LABORATORY DATA: White count 13.6, hemoglobin 7.4, and platelets 78,000. Sodium 133, potassium 4.4, chloride 101, bicarb 20, BUN 95, creatinine 3.05. The pH is 7.39, pCO2 is 28, and pO2 is 87. Chest x-ray shows improvement of his edema compared to admission, but similar to yesterday's film. IMPRESSION: 1. Alcohol withdrawal. 2. Fatty liver secondary to extremely heavy alcohol use. 3. Renal failure/hepatorenal syndrome. PLAN: Probably over the weekend, we can try switching him to Precedex and see if we can extubate him if he is cooperative. If he is not cooperative, he will need to remain mechanically ventilated. Haldol may be an option as well. Critical care time 30 minutes. Met with family and answered their questions. There was a concern that maybe the family wanted him sent to a transplant center. It turns out that they just want to make sure a climate change risk assessor was seeing him. I have explained that with his heavy alcohol use up until this admission, he is not a candidate for a transplant until we can prove he can be abstinent from alcohol. Critical care time 30 min. Job ID: [id number] MTDD
[2020-06-03] MEDS ORDERED: Heparin 10,000 UNITS/ 10 ML VIAL ONE (14:55)
[2020-06-03] MEDS ORDERED: Albumin 25% 25 GM/100 ML BOT IVPB PRN (17:21)
--- NOTE | 2020-06-03 17:21 | PRG ---
DATE OF SERVICE: 06/03/2020 SUBJECTIVE: The patient is seen and examined at the bedside. I talked over the phone with a sister and girlfriend was at the bedside. The patient is still not making much urine. Blood pressure is marginal and his labs are getting worse every day. OBJECTIVE: GENERAL: This is a well-built male, intubated. VITAL SIGNS: Temperature 98.6, pulse 95, respiratory rate 20, and blood pressure 101/40. HEENT: Intubated. CVS: S1 and S2 heard. RESPIRATORY: Coarse breath sounds. GI: Abdomen is distended. MUSCULOSKELETAL: 2+ edema. DERMATOLOGIC: Bruises present. NEUROLOGIC: Intubated. LABORATORY DATA: Hemoglobin is 7.4. Potassium is 4.4, BUN is 95, and creatinine is 3.05. ASSESSMENT AND PLAN: 1. Acute kidney injury on chronic kidney disease stage 3, dialysis dependent. Plan is to have dialysis today for some clearance. Might need some daily dialysis. Midodrine was added for hepatorenal syndrome on dialysis. 2. Hypoalbuminemia. 3. Multiorgan failure. 4. Acute hypoxic respiratory failure. 5. Anemia of chronic disease. Plan is to have dialysis as tolerated. We will follow. Job ID: [id number]
--- NOTE | 2020-06-03 19:44 | PDOC.HOSPP ---
- Subjective Encounter Date: 06/03/20 Encounter Time: 09:00 non-verbal Subjective: Patient seen and examined for respiratory failure. On mechanical ventilation. Started on dialysis yesterday. Tolerating tube feeds. - Objective Vital Signs & Weight: Vital Signs (12 hours) Temp Pulse Resp BP Pulse Ox 06/03/20 18:56 135 H 24 H 96 06/03/20 18:52 105 H 06/03/20 18:00 24 H 06/03/20 16:00 98.6 F 24 H 06/03/20 14:14 102 H 101/50 L 06/03/20 14:12 97 24 H 99 06/03/20 14:00 24 H 06/03/20 12:00 98.7 F 24 H 99 06/03/20 10:51 87 95/48 L 06/03/20 10:49 88 24 H 99 06/03/20 10:00 24 H 06/03/20 08:00 98.7 F 24 H 99 Weight Admit Weight 210 lb Weight 234 lb 9.149 oz Most Recent Monitor Data Heart Rate from ECG 97 NIBP 102/52 NIBP BP-Mean 68 Respiration from ECG 24 SpO2 98 I&O: 06/02/20 06/03/20 06/04/20 06:59 06:59 06:59 Intake Total 2921.6 2372.8 1097 Output Total 660 380 200 Balance 2261.6 1992.8 897 Result Diagrams: 06/03/20 04:30 06/03/20 04:30 Additional Labs: Abnormal Lab Results - Last 48 hrs 06/02/20 03:35: RBC 2.06 L, Hgb 7.8 L, Hct 23.7 L, MCV 115.0 H, MCH 38.0 H, RDW 27.0 H, Plt Count 91 L, Band Neuts % (Manual) 22 H, Lymphocytes % (Manual) 3 L, Myelocytes % 2 H, Plt Morphology Comment Appears Decreased L, Macrocytosis MODERATE=16-30 cells H 06/02/20 03:35: Sodium 131 L, Carbon Dioxide 18 L, BUN 104 H, Creatinine 3.03 H, Total Bilirubin 7.5 H, AST 51 H, Globulin 2.2 L 06/02/20 06:40: Bicarbonate Actual 16.3 L, ABG pCO2 27.2 L, ABG pO2 127.9 H, ABG O2 Sat (Measured) 98.5 H, ABG O2 Content 12.4 L, ABG Base Excess -7.5 L, ABG Hematocrit 26.0 L, ABG Hemoglobin 8.8 L, A-a O2 Gradient 123.300 H, Sodium 129 L 06/03/20 04:30: WBC 13.6 H, RBC 1.92 L, Hgb 7.4 L, Hct 22.0 L, MCV 115.0 H, MCH 38.5 H, RDW 26.1 H, Plt Count 78 L, Band Neuts % (Manual) 17 H, Lymphocytes % (Manual) 8 L, Metamyelocytes % (Man) 3 H, Plt Morphology Comment Appears Decreased L 06/03/20 04:30: Sodium 133 L, Carbon Dioxide 20 L, BUN 95 H, Creatinine 3.05 H, Total Bilirubin 7.1 H, AST 53 H, Serum Total Protein 5.8 L, Globulin 2.1 L 06/03/20 07:10: Bicarbonate Actual 17.0 L, ABG pCO2 28.5 L, ABG pO2 87.4 H, ABG O2 Content 13.4 L, ABG Base Excess -6.8 L, ABG Hematocrit 29.0 L, ABG Hemoglobin 9.9 L, A-a O2 Gradient 162.175 H, Sodium 130 L Microbiology - Entire Visit 05/25/20 08:11 Venous blood - Right Hand Blood Culture - Final NO GROWTH IN 5 DAYS 05/25/20 08:10 Venous blood - Left Arm Blood Culture - Final NO GROWTH IN 5 DAYS Radiology Reviewed by me: Yes (Chest x-rayimprovement) EKG Reviewed by me: Yes (Sinus rhythm on telemetry) Hospitalist ROS - Review of Systems ROS unobtainable: due to mental status - Medication Medications: Active Medications Generic Name Dose Route Start Last Admin Trade Name Freq PRN Reason Stop Dose Admin Albumin Human 25 gm 06/03/20 17:21 06/03/20 17:45 Albumin 25% 25 Gm/100 Ml Bot IVPB 06/04/20 17:22 25 gm ASDIR PRN Administration 2X PRN WITH DIALYSIS Albuterol/Ipratropium 3 ml 05/31/20 10:30 06/03/20 18:56 Ipratropium/Albuterol Sulfate 3 Ml Neb NEB 3 ml [id number] LAURIE Administration Clotrimazole 0 gm 05/26/20 21:00 06/03/20 09:27 Clotrimazole 1 % Cream 30 Gm Tube TOP 1 applic BID LAURIE Administration Folic Acid 1 mg 05/25/20 09:00 06/03/20 09:24 Folic Acid 1 Mg Tab PO 1 mg DAILY LAURIE Administration Hydrocortisone/Aloe 1.5 gm 05/25/20 21:00 06/03/20 09:25 Hydrocortisone 1% Cream 30 Gm Tube TOP 1 applic BID LAURIE Administration Fentanyl Citrate 2,000 mcg/ 100 mls @ 0 mls/hr 05/29/20 11:45 06/03/20 13:27 Sodium Chloride IV 06/28/20 11:45 100 mls INF LAURIE Administration Protocol Per Protocol Levofloxacin 250 mg/ Device 50 mls @ 100 mls/hr 05/31/20 10:00 06/03/20 09:55 IVPB 50 mls 1000 LAURIE Administration Cefepime HCl 2 gm/ Sodium 100 mls @ 200 mls/hr 06/02/20 21:00 06/02/20 21:55 Chloride IVPB 100 mls 2100 LAURIE Administration Multivitamins 10 ml/ Sodium 510 mls @ 0 mls/hr 06/03/20 12:00 06/03/20 12:35 Chloride IV 510 mls 1200 LAURIE Administration KVO Lorazepam 2 mg 05/29/20 11:45 06/02/20 12:10 Lorazepam 2 Mg/Ml Vial SLOW IVP 06/28/20 11:45 2 mg Q1H PRN Administration Breakthrough agitation Methylprednisolone Sodium Succinate 20 mg 05/28/20 21:00 06/03/20 09:16 Methylprednisolone Sod Succ 40 Mg Vial IVP 20 mg Q12HR LAURIE Administration Metoclopramide HCl 10 mg 06/02/20 18:00 06/03/20 18:03 Metoclopramide Hcl 10 Mg/2 Ml Vial IVP 10 mg Q6HR LAURIE Administration Midodrine 5 mg 06/01/20 09:00 06/03/20 15:45 Midodrine Hcl 5 Mg Tab PO 5 mg TID LAURIE Administration Ondansetron HCl 4 mg 05/28/20 19:14 05/28/20 19:20 Ondansetron Pf 4 Mg/2 Ml Vial IVP 4 mg Q6H PRN Administration Nausea/Vomiting Pantoprazole Sodium 40 mg 05/31/20 09:00 06/02/20 09:23 Pantoprazole 40 Mg Vial IVP 40 mg DAILY LAURIE Administration Propofol 1,000 mg 05/29/20 11:45 06/03/20 11:49 Propofol 1,000 Mg/100 Ml Vial IV 06/28/20 11:45 1,000 mg INF PRN Administration TO ACHIEVE GOAL RASS Protocol Sodium Chloride 10 ml 05/25/20 09:00 06/03/20 09:24 Flush - Normal Saline 10 Ml Syringe IVF 10 ml Q12HR LAURIE Administration Vecuronium [employer] 10 mg 05/30/20 11:34 06/02/20 00:12 Vecuronium 10 Mg Vial IV 10 mg Q1H PRN Administration NEUOMUSCULAR BLOCKADE/VENTILAT Venlafaxine HCl 150 mg 05/27/20 09:00 05/29/20 10:10 Venlafaxine Hcl Xr 150 Mg Cap PO 150 mg DAILY LAURIE Administration - Exam General Appearance: ill appearing General - other findings: On mechanical ventilation Heart: RRR, no gallops Respiratory: rales, rhonchi Gastrointestinal: soft, non-distended, no guarding, no rigidity Extremities: no cyanosis, 1+ LE edema Neurological - other findings: Neuro/psych exam limited due to current mentation Hosp A/P - Plan DVT proph w/SCDs (No heparin due to thrombocytopenia/coagulopathy) Severe alcoholic hepatitis/acute hepatic failure Acute hypoxic and hypercapnic respiratory failure/sepsis due to aspiration pneumonia intubated 05/29 Chronic alcoholism with alcohol withdrawal TASIA on CKD stage II/hepatorenal syndrome Started on dialysis on 06/02 Hypotensive shock requiring pressors Hyponatremia/hypomagnesemia Alcoholic cirrhosis with varices/portal hypertension/coagulopathy Anemia with elevated reticulocyte count s/p PRBC Tobacco dependence Chronic low back pain Anxiety Penicillin allergy Plan: Continue supportive care. Continue cefepime, Levaquin and vancomycin. And Comycin level monitoring. Continue banana bagreduce rate to KVO. Continue nebulizer treatment. Continue tube feedings. Continue IV steroids. Chest x- ray, ABG and labs in a.m. Check reticulocyte and PT/INR. Continue other medications as above. Plan discussed with Sultana Boone [phone]
[2020-06-03] MEDS: Cefepime 2 GM in Sodium Chloride 0.9% 100 ML IVPB SCH (20:23)
[2020-06-03 20:36] LABS: SARS-CoV-2 IgG Ab Non-Reactive (NonReactive); SARS-CoV-2 IgG Index 0.02 S/CO (< 1.40)
[2020-06-03] MEDS ORDERED: Vancomycin HCl 750 MG in Sodium Chloride 0.9% 250 ML 250 ML IVPB SCH (23:59)
[2020-06-04] MEDS: Propofol 1,000 MG/100 ML VIAL IV PRN ×2 (00:36→18:15)
[2020-06-04] MEDS: Lorazepam 2 MG/ML VIAL SLOW IVP PRN ×4 (02:55→19:39)
[2020-06-04 04:17] LABS: Reticulocyte Count 2.3 % (0.5-1.5)
[2020-06-04] MEDS ORDERED: Propofol 1,000 MG/100 ML VIAL IV ONE (04:17)
[2020-06-04 04:30] LABS: INR-International Normal Ratio 2.7; PTT 44.5 sec (22.9-36.1); Prothrombin Time 28.9 sec (12.0-14.7)
[2020-06-04 04:35] LABS: ALT (SGPT) 32 U/L (8-55); AST (SGOT) 52 U/L (5-34); Albumin 3.5 g/dL (3.5-5.0); Alkaline Phosphatase 75 U/L (40-110); Anion Gap 17 mmol/L (10-20); BUN (Urea Nitrogen) 71 mg/dL (8.4-25.7); Bilirubin, Total 7.2 mg/dL (0.2-1.2); Calc. Creatinine Clearance 46 mL/min (70-130); Calcium 8.6 mg/dL (7.8-10.44); Carbon Dioxide 23 mmol/L (22-29); Chloride 101 mmol/L (98-107); Estimated GFR-MDRD 26; Globulin 1.9 g/dL (2.4-3.5); Glucose 125 mg/dL (70-105); Potassium 3.9 mmol/L (3.5-5.1); Protein, Total 5.4 g/dL (6.0-8.3); Sodium 137 mmol/L (136-145)
[2020-06-04 04:38] LABS: Anisocytosis SLIGHT = 6-15 cells (100X) (0-5/hpf); Band 33 % (5-11); Eosinophils 4 % (0-10); Hemoglobin 6.9 g/dL (14.0-18.0); Lymphocytes 6 % (21-51); MDiff Complete? YES; Mean Corpuscular HGB CONC 34.1 g/dL (32.0-36.0); Mean Corpuscular Hemoglobin 39.3 pg (27.0-31.0); Mean Platelet Volume 9.4 fL (7.4-10.4); Monocytes 7 % (0-10); Neutrophil 50 % (42-75); Platelet Count 61 thou/uL (130-400); Platelet Morphology Comment Appears Decreased; RBC Distribution Width 25.8 % (11.5-14.5); Red Blood Cell (RBC) Count 1.74 mill/uL (4.70-6.10)
[2020-06-04] MEDS: Metoclopramide HCl 10 MG/2 ML VIAL IVP SCH ×4 (05:38→23:55)
[2020-06-04 07:14] LABS: Actual Bicarbonate (HCO3a) 22.5 mEq/L (22-28); Base Excess (BEa) 1.2 mEq/L (-2.0 to +3.0); CO2 Tension 27.6 mmHg (35.0-45.0); Calcium, Ionized (arterial) 1.12 mmol/L (1.12-1.30); O2 Tension (PaO2), arterial 81.5 mmHg (> 80.0); Potassium - ABG Lab 3.64 mmol/L (3.70-5.30); pH, Arterial 7.53 (7.35-7.45)
[2020-06-04] MEDS: fentaNYL Citrate/PF 2,000 MCG in Sodium Chloride 0.9% 60 ML IV SCH (07:14)
[2020-06-04 07:22] LABS: Puncture Site RRA
--- NOTE | 2020-06-04 08:41 | RAD ---
CHEST 1 VIEW: Date: 06/04/2020 INDICATION: History of intubation. COMPARISON: Prior exam dated 06/03/2020. FINDINGS: Bilateral air space disease appears slightly worsened. Patient remains intubated with gastric cathete r placement. Pulmonary vascular congestion appears slightly worse. No pneumothorax is evident. IMPRESSION: 1. Worsening pulmonary vascular congestion and bilateral air space disease. 2. Small bilateral pleural effusions. POS: BH
[2020-06-04] MEDS ORDERED: Multivit, Adult Inj 10 ML VIAL IV SCH (09:00)
[2020-06-04] MEDS: Folic Acid 1 MG TAB PO SCH (10:35)
[2020-06-04] MEDS: Midodrine HCl 5 MG TAB PO SCH ×3 (10:35→21:04)
[2020-06-04] MEDS: Thiamine 100 MG TAB PER TUBE SCH (10:35)
[2020-06-04] MEDS: methylPREDNISolone Sod Succ 40 MG VIAL IVP SCH ×2 (10:36→21:04)
[2020-06-04] MEDS: Clotrimazole 1 % Cream 30 GM TUBE TOP SCH ×2 (10:41→21:05)
[2020-06-04] MEDS: Hydrocortisone 1% Cream 30 GM TUBE TOP SCH ×2 (10:42→21:05)
[2020-06-04] MEDS ORDERED: Albumin 25% 100 ML ONE (11:17)
[2020-06-04] MEDS: Multivitamins, Adult 10 ML in Sodium Chloride 0.9% 500 ML IV SCH (11:32)
[2020-06-04] MEDS ORDERED: Albumin 25% 25 GM/100 ML BOT IVPB PRN (12:00)
--- NOTE | 2020-06-04 13:49 | PRG ---
DATE OF SERVICE: 06/04/2020 SUBJECTIVE: He continues to receive ventilatory support with a rate of 24, tidal volume 500, PEEP of 8, and FiO2 of 40%. At this level, his saturation is 100. Blood pressure is marginal 88/43, but is not on pressors. He is receiving dialysis today and appears as though he is going to get another unit of packed cells. PHYSICAL EXAMINATION: VITAL SIGNS: More recent blood pressure 120/56, saturations 99 on ventilator settings as above. He has occasional PVCs, but no complex arrhythmia. LUNGS: Show rhonchi, but no wheezes. HEART: Regular rate and rhythm. ABDOMEN: Soft, distended. I do not feel splenomegaly. There is no guarding or rebound. EXTREMITIES: Show 1+ edema. LABORATORY DATA: White count 14,000, hemoglobin is 6.9, hematocrit is 20.1, platelet count reported as 60,000. Differential includes 50 neutrophils and 33 bands. Blood gas showed pH 7.53, CO2 27, pO2 of 81, and bicarbonate of 22. This was obtained on ventilator settings as above including FiO2 of 0.4. Chemistry panel includes sodium 137, potassium 3.9, chloride 101, CO2 is 23, BUN 71, creatinine 2.55. His bilirubin is remaining elevated, but stable at 7.2. Liver tests have effectively normalized. Albumin is 3.5. He does have ongoing coagulopathy secondary to hepatic disk stem with pro-time 28.9 seconds and INR of 2.7, as was a PTT of 44. IMPRESSION: Alcohol history, active to the time of admission with alcoholic cirrhosis and associated acute liver failure with macrocytic anemia, thrombocytopenia (presumed secondary to hepatic sequestration), portal hypertension and coagulopathy. I do not see an ammonia level. PLAN: He is receiving dialysis today. I am concerned that his hepatorenal syndrome is not going to demonstrate recovery. He is not a candidate for transplant due to his alcohol abuse, active to the time of this admission. We will reassess his status early in the week, but at some point, a decision may need to be made regarding withdrawals supportive therapies. I have discussed this at length with his sister who is his power of employment attorney. Critical care time 48 minutes. Job ID: [id number]
--- NOTE | 2020-06-04 14:28 | PDOC.HOSPP ---
- Subjective Encounter Date: 06/04/20 Encounter Time: 08:40 Subjective: on vent, is sedated girl friend at bedside - Objective Vital Signs & Weight: Vital Signs (12 hours) Temp Pulse Resp BP 06/04/20 13:16 96 115/53 L 06/04/20 12:00 24 H 06/04/20 10:35 133 H 06/04/20 10:00 24 H 06/04/20 08:00 24 H 06/04/20 07:25 112 H 06/04/20 07:00 97.7 F 06/04/20 06:00 24 H 06/04/20 04:00 98.5 F 24 H Weight Admit Weight 210 lb Weight 231 lb 7.766 oz Most Recent Monitor Data Heart Rate from ECG 93 NIBP 120/56 NIBP BP-Mean 77 Respiration from ECG 24 SpO2 99 I&O: 06/03/20 06/04/20 06/05/20 06:59 06:59 06:59 Intake Total 2372.8 2067.2 0 Output Total 380 344 60 Balance 1992.8 1723.2 -60 Result Diagrams: 06/04/20 03:55 06/04/20 03:55 Hospitalist ROS - Medication Medications: Active Medications Generic Name Dose Route Start Last Admin Trade Name Freq PRN Reason Stop Dose Admin Albuterol/Ipratropium 3 ml 05/31/20 10:30 06/04/20 14:07 Ipratropium/Albuterol Sulfate 3 Ml Neb NEB 3 ml [id number] LAURIE Administration Clotrimazole 0 gm 05/26/20 21:00 06/04/20 10:41 Clotrimazole 1 % Cream 30 Gm Tube TOP 1 applic BID LAURIE Administration Folic Acid 1 mg 05/25/20 09:00 06/04/20 10:35 Folic Acid 1 Mg Tab PO 1 mg DAILY LAURIE Administration Hydrocortisone/Aloe 1.5 gm 05/25/20 21:00 06/04/20 10:42 Hydrocortisone 1% Cream 30 Gm Tube TOP 1 applic BID LAURIE Administration Fentanyl Citrate 2,000 mcg/ 100 mls @ 0 mls/hr 05/29/20 11:45 06/04/20 07:14 Sodium Chloride IV 06/28/20 11:45 100 mls INF LAURIE Administration Protocol Per Protocol Levofloxacin 250 mg/ Device 50 mls @ 100 mls/hr 05/31/20 10:00 06/04/20 10:50 IVPB 50 mls 1000 LAURIE Administration Cefepime HCl 2 gm/ Sodium 100 mls @ 200 mls/hr 06/02/20 21:00 06/03/20 20:23 Chloride IVPB 100 mls 2100 LAURIE Administration Multivitamins 10 ml/ Sodium 510 mls @ 0 mls/hr 06/03/20 12:00 06/04/20 11:32 Chloride IV Not Given 1200 LAURIE KVO Lorazepam 2 mg 05/29/20 11:45 06/04/20 09:17 Lorazepam 2 Mg/Ml Vial SLOW IVP 06/28/20 11:45 2 mg Q1H PRN Administration Breakthrough agitation Methylprednisolone Sodium Succinate 20 mg 05/28/20 21:00 06/04/20 10:36 Methylprednisolone Sod Succ 40 Mg Vial IVP 20 mg Q12HR LAURIE Administration Metoclopramide HCl 10 mg 06/02/20 18:00 06/04/20 11:04 Metoclopramide Hcl 10 Mg/2 Ml Vial IVP 10 mg Q6HR LAURIE Administration Midodrine 5 mg 06/01/20 09:00 06/04/20 10:35 Midodrine Hcl 5 Mg Tab PO 5 mg TID LAURIE Administration Ondansetron HCl 4 mg 05/28/20 19:14 05/28/20 19:20 Ondansetron Pf 4 Mg/2 Ml Vial IVP 4 mg Q6H PRN Administration Nausea/Vomiting Pantoprazole Sodium 40 mg 05/31/20 09:00 06/02/20 09:23 Pantoprazole 40 Mg Vial IVP 40 mg DAILY LAURIE Administration Propofol 1,000 mg 05/29/20 11:45 06/04/20 00:36 Propofol 1,000 Mg/100 Ml Vial IV 06/28/20 11:45 1,000 mg INF PRN Administration TO ACHIEVE GOAL RASS Protocol Sodium Chloride 10 ml 05/25/20 09:00 06/04/20 10:53 Flush - Normal Saline 10 Ml Syringe IVF Not Given Q12HR LAURIE Thiamine HCl 100 mg 06/04/20 09:00 06/04/20 10:35 Thiamine 100 Mg Tab PER TUBE 100 mg DAILY LAURIE Administration Vecuronium [place] 10 mg 05/30/20 11:34 06/02/20 00:12 Vecuronium 10 Mg Vial IV 10 mg Q1H PRN Administration NEUOMUSCULAR BLOCKADE/VENTILAT Venlafaxine HCl 150 mg 05/27/20 09:00 05/29/20 10:10 Venlafaxine Hcl Xr 150 Mg Cap PO 150 mg DAILY LAURIE Administration - Exam General Appearance: ill appearing Eye: scleral icterus ENT: normocephalic atraumatic, dry oral mucosa Neck: supple, no JVD Heart: RRR, no murmur Respiratory: no wheezes, no rales, rhonchi Gastrointestinal: soft, non-tender, non-distended, normal bowel sounds Extremities: no cyanosis, 1+ LE edema Neurological: cranial nerve grossly intact, no focal deficits Hosp A/P (1) Acute respiratory failure with hypoxia Code(s): J96.01 - ACUTE RESPIRATORY FAILURE WITH HYPOXIA Status: Acute (2) PNA (pneumonia) Code(s): J18.9 - PNEUMONIA, UNSPECIFIED ORGANISM Status: Acute Qualifiers: Pneumonia type: aspiration pneumonia Laterality: bilateral (3) Acute renal failure Status: Acute (4) Thrombocytopenia Code(s): D69.6 - THROMBOCYTOPENIA, UNSPECIFIED Status: Chronic (5) Alcohol abuse Code(s): F10.10 - ALCOHOL ABUSE, UNCOMPLICATED Status: Chronic (6) Coagulopathy Status: Chronic (7) Anemia Code(s): D64.9 - ANEMIA, UNSPECIFIED Status: Chronic Qualifiers: Anemia type: unspecified type Qualified Code(s): D64.9 - Anemia, unspecified (8) Hyperlipidemia Code(s): E78.5 - HYPERLIPIDEMIA, UNSPECIFIED Status: Chronic Qualifiers: Hyperlipidemia type: unspecified Qualified Code(s): E78.5 - Hyperlipidemia, unspecified (9) Hypertension Code(s): I10 - ESSENTIAL (PRIMARY) HYPERTENSION Status: Chronic Qualifiers: Hypertension type: essential hypertension Qualified Code(s): I10 - Essential (primary) hypertension (10) Liver cirrhosis, alcoholic Code(s): K70.30 - ALCOHOLIC CIRRHOSIS OF LIVER WITHOUT ASCITES Status: Chronic Qualifiers: Ascites presence: without ascites Qualified Code(s): K70.30 - Alcoholic cirrhosis of liver without ascites - Plan is on cefepime, levaquin and vanc protonix, steroids, nebs weaning per pulm advice will get 1 u prbc for a total of 4 this admission poor prognosis d/w sister and POA over phone and gave full updates HD as tolerated, sbp around 100, not on pressors, is on midodrine.
--- NOTE | 2020-06-04 16:05 | PRG ---
DATE OF SERVICE: 06/04/2020 SUBJECTIVE: Patient is seen and examined at bedside. Remains intubated. Girlfriend at the bedside. OBJECTIVE: GENERAL: This is a well-built male, he was intubated. VITAL SIGNS: Temperature 97.7, pulse 91, respiratory 24, blood pressure 105/52. LABORATORY DATA: Potassium 3.9, BUN is 71, creatinine is 2.5. ASSESSMENT AND PLAN: 1. Acute kidney injury on chronic kidney stage 3, dialysis dependent. Renal function is getting better. Plan is to have another session today if he can tolerate with ultrafiltration. 2. Hypoalbuminemia. 3. Multiorgan failure. 4. Acute hypoxic respiratory failure. 5. Anemia of chronic disease. We will attempt to have dialysis, but overall he is not showing much improvement. Discussed with the family. We will have dialysis to see if we could remove any fluid. Overall prognosis poor. Job ID: [id number]
[2020-06-04] MEDS: Cefepime 2 GM in Sodium Chloride 0.9% 100 ML IVPB SCH (21:03)
[2020-06-04 23:34] LABS: Vancomycin, Random 16.6 ug/mL (See Comment)
[2020-06-05] MEDS: Vancomycin HCl 750 MG in Sodium Chloride 0.9% 250 ML 250 ML IVPB SCH (00:08)
[2020-06-05] MEDS: fentaNYL Citrate/PF 2,000 MCG in Sodium Chloride 0.9% 60 ML IV SCH ×2 (01:48→20:18)
[2020-06-05] MEDS: Lorazepam 2 MG/ML VIAL SLOW IVP PRN (02:04)
[2020-06-05] MEDS: Propofol 1,000 MG/100 ML VIAL IV PRN ×3 (03:42→17:44)
[2020-06-05 04:49] LABS: ALT (SGPT) 36 U/L (8-55); AST (SGOT) 56 U/L (5-34); Albumin 3.5 g/dL (3.5-5.0); Alkaline Phosphatase 84 U/L (40-110); Anion Gap 14 mmol/L (10-20); BUN (Urea Nitrogen) 70 mg/dL (8.4-25.7); Bilirubin, Total 7.7 mg/dL (0.2-1.2); Calc. Creatinine Clearance 45 mL/min (70-130); Calcium 8.4 mg/dL (7.8-10.44); Carbon Dioxide 26 mmol/L (22-29); Chloride 99 mmol/L (98-107); Estimated GFR-MDRD 25; Globulin 1.9 g/dL (2.4-3.5); Glucose 174 mg/dL (70-105); Potassium 4.3 mmol/L (3.5-5.1); Protein, Total 5.4 g/dL (6.0-8.3); Sodium 135 mmol/L (136-145)
[2020-06-05 04:58] LABS: INR-International Normal Ratio 2.5; Prothrombin Time 27.9 sec (12.0-14.7)
[2020-06-05 05:33] LABS: Hemoglobin 6.6 g/dL (14.0-18.0); Mean Corpuscular HGB CONC 33.5 g/dL (32.0-36.0); Mean Corpuscular Hemoglobin 37.3 pg (27.0-31.0); Mean Platelet Volume 10.1 fL (7.4-10.4); Platelet Count 66 thou/uL (130-400); RBC Distribution Width 25.1 % (11.5-14.5); Red Blood Cell (RBC) Count 1.77 mill/uL (4.70-6.10); White Blood Cell (WBC) Count 17.9 thou/uL (4.8-10.8)
[2020-06-05 05:34] LABS: Eosinophils 4 % (0-10); Hypochromia SLIGHT = 6-15 cells (100X) (0-5/hpf); Lymphocytes 40 % (21-51); MDiff Complete? YES; Macrocytosis SLIGHT = 6-15 cells (100X) (0-5/hpf); Monocytes 6 % (0-10); Neutrophil 50 % (42-75); Platelet Morphology Comment Appears Decreased
[2020-06-05] MEDS: Metoclopramide HCl 10 MG/2 ML VIAL IVP SCH ×3 (05:49→19:41)
[2020-06-05 07:23] LABS: Actual Bicarbonate (HCO3a) 23.5 mEq/L (22-28); Base Excess (BEa) 1.1 mEq/L (-2.0 to +3.0); CO2 Tension 31.6 mmHg (35.0-45.0); Calcium, Ionized (arterial) 1.11 mmol/L (1.12-1.30); O2 Tension (PaO2), arterial 77.5 mmHg (> 80.0); Potassium - ABG Lab 4.28 mmol/L (3.70-5.30); pH, Arterial 7.49 (7.35-7.45)
[2020-06-05 07:53] LABS: Puncture Site RRA
[2020-06-05] MEDS ORDERED: Phytonadione 10 MG in Sodium Chloride 0.9% 50 ML IVPB SCH (08:30)
[2020-06-05] MEDS: methylPREDNISolone Sod Succ 40 MG VIAL IVP SCH ×2 (09:17→20:24)
[2020-06-05] MEDS: Midodrine HCl 5 MG TAB PO SCH ×4 (09:17→20:29)
[2020-06-05] MEDS: Folic Acid 1 MG TAB PO SCH (09:17)
[2020-06-05] MEDS: Pantoprazole 40 MG VIAL IVP SCH (09:17)
[2020-06-05] MEDS: Thiamine 100 MG TAB PER TUBE SCH (09:17)
[2020-06-05] MEDS: Hydrocortisone 1% Cream 30 GM TUBE TOP SCH ×2 (09:18→20:33)
--- NOTE | 2020-06-05 09:21 | RAD ---
CHEST ONE VIEW: INDICATIONS: History of daily CCU examination while on ventilator. COMPARISON: 05/25/2020 FINDINGS: There is improvement in the bilateral bibasilar air space disease. Mild residual opacities remain. Ca rdiomegaly and pulmonary vascular congestion also appear less prominent. The central edema pattern ap pears improved. ET tube and gastric catheter are unchanged. No pneumothorax is evident. IMPRESSION: Improving chest radiograph. POS: BH
[2020-06-05] MEDS: Clotrimazole 1 % Cream 30 GM TUBE TOP SCH ×2 (09:30→20:32)
[2020-06-05] MEDS: Multivitamins, Adult 10 ML in Sodium Chloride 0.9% 500 ML IV SCH (12:13)
--- NOTE | 2020-06-05 12:45 | PRG ---
DATE OF SERVICE: 06/05/2020 SUBJECTIVE: Mr. Resendez continues to have a slow GI bleeding with about 150 to 200 mL of coffee-ground material from his NG tube. His hemoglobin has drifted down again, and we will give 1 unit of packed cells. He received dialysis late last night, and decision for dialysis today is pending at this time. He continues to receive ventilatory support with respiratory rate 24 (I have reduced it to 18) with tidal volume of 500, PEEP of 8, and FiO2 of 40%. PHYSICAL EXAMINATION: VITAL SIGNS: Blood pressure 108/47, heart rate is 90, saturation 100% with ventilator settings as above. HEENT: He is mildly icteric. There is no JVD. LUNGS: Show coarse rhonchi. HEART: Regular rate and rhythm. ABDOMEN: Soft. I do not feel the splenomegaly. There is no ascites or significant dullness. EXTREMITIES: Show 1+ edema. LABORATORY DATA: White count 17,900, hemoglobin is 6.6, it was 6.9 yesterday and received a unit, but clearly continues to lose, hematocrit 19.8, platelet count 66,000, stable. His blood gas this morning includes pH 7.49, CO2 of 31, pO2 of 77, bicarbonate 24. This prompted my reduction in ventilator rate. Sodium 135, potassium 4.3, chloride 99, CO2 is 26, BUN 70, creatinine 2.6. Bilirubin is 7.7. Liver tests are unchanged. Protime today is 27.9 with INR 2.5, consistent with his underlying hepatic and auto anticoagulation. His ammonia level today is 32. IMPRESSION: End-stage alcoholic liver disease with active alcohol use until the time of admission. He has associated gastrointestinal bleeding, thrombocytopenia secondary to sequestration and auto anticoagulation. He is currently in renal failure consistent with hepatorenal. PLAN: We will continue ventilatory support and make adjustments as tolerated. He will get a transfusion of 1 unit today. Decision regarding dialysis is deferred to the Nephrology Service. The family has expressed an interest in possible transfer to a tertiary facility. At this point, I do not think that he would be accepted because there is nothing they have to offer, which is not currently being provided. He is not a candidate for transplant due to his active alcohol history. Unfortunately, prognosis a very poor. Critical care 40 minutes. Job ID: [id number]
--- NOTE | 2020-06-05 14:24 | PRG ---
DATE OF SERVICE: 06/05/2020 SUBJECTIVE: The patient is seen and examined at bedside the patient remains intubated . OBJECTIVE: GENERAL: This is a well-built male, who is intubated. VITAL SIGNS: Temperature 97.9, pulse 94, respiratory rate 18, and blood pressure 106/49. HEENT: Intubated. CV: S1 and S2 heard. RESPIRATORY: Clear. GASTROINTESTINAL: Abdomen is distended. MUSCULOSKELETAL: 1+ edema. DERMATOLOGIC: No skin rash. NEUROLOGIC: Intubated. LABORATORY DATA: Potassium 4.3, BUN is 70, and creatinine is 2.5. ASSESSMENT AND PLAN: 1. Acute kidney injury on chronic kidney disease, stage 3, dialysis dependent. No significant improvement in overall clinical condition. No dialysis today. Had dialysis late last night. 2. Hypoalbuminemia. 3. Hepatorenal syndrome. 4. Multiorgan failure. 5. Acute hypoxic respiratory failure. 6. Anemia of chronic disease. The patient remains dialysis dependent. No significant urine output. GI is going to re-evaluate him per family request and family also trying to see if they could transfer him to a Tertiary Center. No dialysis today. We will plan for dialysis as indicated and we will work with other consultants on the case. Family updated about the renal condition today. We will follow. Job ID: [id number]
--- NOTE | 2020-06-05 14:54 | PDOC.HOSPP ---
- Subjective Encounter Date: 06/05/20 Encounter Time: 08:45 Subjective: on vent, mild sedation girl friend at bedside pt not in distress, does not awaken to touch or any stimulus - Objective Vital Signs & Weight: Vital Signs (12 hours) Temp Pulse Resp BP Pulse Ox 06/05/20 14:14 140 H 06/05/20 14:00 18 06/05/20 12:00 97.9 F 18 06/05/20 10:42 86 06/05/20 10:00 18 06/05/20 08:27 98 F 85 24 H 101/45 L 100 06/05/20 08:02 86 06/05/20 08:00 98.0 F 24 H 06/05/20 07:30 100 06/05/20 06:00 24 H 06/05/20 04:00 98.3 F 24 H Weight Admit Weight 210 lb Weight 223 lb 8.78 oz Most Recent Monitor Data Heart Rate from ECG 142 NIBP 126/98 NIBP BP-Mean 107 Respiration from ECG 18 SpO2 99 I&O: 06/04/20 06/05/20 06/06/20 06:59 06:59 06:59 Intake Total 2067.2 2326 0 Output Total 344 250 60 Balance 1723.2 2076 -60 Result Diagrams: 06/05/20 04:07 06/05/20 04:07 Hospitalist ROS - Medication Medications: Active Medications Generic Name Dose Route Start Last Admin Trade Name Freq PRN Reason Stop Dose Admin Albuterol/Ipratropium 3 ml 05/31/20 10:30 06/05/20 14:11 Ipratropium/Albuterol Sulfate 3 Ml Neb NEB 3 ml [id number] LAURIE Administration Clotrimazole 0 gm 05/26/20 21:00 06/05/20 09:30 Clotrimazole 1 % Cream 30 Gm Tube TOP 1 applic BID LAURIE Administration Folic Acid 1 mg 05/25/20 09:00 06/05/20 09:17 Folic Acid 1 Mg Tab PO 1 mg DAILY LAURIE Administration Hydrocortisone/Aloe 1.5 gm 05/25/20 21:00 06/05/20 09:18 Hydrocortisone 1% Cream 30 Gm Tube TOP 1 applic BID LAURIE Administration Fentanyl Citrate 2,000 mcg/ 100 mls @ 0 mls/hr 05/29/20 11:45 06/05/20 01:48 Sodium Chloride IV 06/28/20 11:45 100 mls INF LAURIE Administration Protocol Per Protocol Levofloxacin 250 mg/ Device 50 mls @ 100 mls/hr 05/31/20 10:00 06/05/20 11:12 IVPB 50 mls 1000 LAURIE Administration Cefepime HCl 2 gm/ Sodium 100 mls @ 200 mls/hr 06/02/20 21:00 06/04/20 21:03 Chloride IVPB 100 mls 2100 LAURIE Administration Multivitamins 10 ml/ Sodium 510 mls @ 0 mls/hr 06/03/20 12:00 06/05/20 12:13 Chloride IV Not Given 1200 LAURIE KVO Vancomycin HCl 750 mg/ Sodium 250 mls @ 250 mls/hr 06/05/20 01:00 06/05/20 00:08 Chloride IVPB 250 mls 0100 LAURIE Administration Lorazepam 2 mg 05/29/20 11:45 06/05/20 02:04 Lorazepam 2 Mg/Ml Vial SLOW IVP 06/28/20 11:45 2 mg Q1H PRN Administration Breakthrough agitation Methylprednisolone Sodium Succinate 20 mg 05/28/20 21:00 06/05/20 09:17 Methylprednisolone Sod Succ 40 Mg Vial IVP 20 mg Q12HR LAURIE Administration Metoclopramide HCl 10 mg 06/02/20 18:00 06/05/20 12:13 Metoclopramide Hcl 10 Mg/2 Ml Vial IVP 10 mg Q6HR LAURIE Administration Midodrine 5 mg 06/01/20 09:00 06/05/20 14:28 Midodrine Hcl 5 Mg Tab PO 5 mg TID LAURIE Administration Ondansetron HCl 4 mg 05/28/20 19:14 05/28/20 19:20 Ondansetron Pf 4 Mg/2 Ml Vial IVP 4 mg Q6H PRN Administration Nausea/Vomiting Pantoprazole Sodium 40 mg 05/31/20 09:00 06/05/20 09:17 Pantoprazole 40 Mg Vial IVP 40 mg DAILY LAURIE Administration Propofol 1,000 mg 05/29/20 11:45 06/05/20 11:17 Propofol 1,000 Mg/100 Ml Vial IV 06/28/20 11:45 1,000 mg INF PRN Administration TO ACHIEVE GOAL RASS Protocol Sodium Chloride 10 ml 05/25/20 09:00 06/05/20 09:18 Flush - Normal Saline 10 Ml Syringe IVF 10 ml Q12HR LAURIE Administration Thiamine HCl 100 mg 06/04/20 09:00 06/05/20 09:17 Thiamine 100 Mg Tab PER TUBE 100 mg DAILY LAURIE Administration Vecuronium [place] 10 mg 05/30/20 11:34 06/02/20 00:12 Vecuronium 10 Mg Vial IV 10 mg Q1H PRN Administration NEUOMUSCULAR BLOCKADE/VENTILAT Venlafaxine HCl 150 mg 05/27/20 09:00 05/29/20 10:10 Venlafaxine Hcl Xr 150 Mg Cap PO 150 mg DAILY LAURIE Administration - Exam General Appearance: ill appearing Eye: PERRL, scleral icterus ENT: normocephalic atraumatic, dry oral mucosa Neck: supple, no JVD Heart: RRR, no murmur Respiratory: no wheezes, no rales, rhonchi Gastrointestinal: soft, non-tender, non-distended, normal bowel sounds Extremities: no cyanosis, no edema Neurological: cranial nerve grossly intact, no focal deficits Hosp A/P (1) Acute respiratory failure with hypoxia Code(s): J96.01 - ACUTE RESPIRATORY FAILURE WITH HYPOXIA Status: Acute (2) PNA (pneumonia) Code(s): J18.9 - PNEUMONIA, UNSPECIFIED ORGANISM Status: Acute Qualifiers: Pneumonia type: aspiration pneumonia Laterality: bilateral (3) Acute renal failure Status: Acute (4) Thrombocytopenia Code(s): D69.6 - THROMBOCYTOPENIA, UNSPECIFIED Status: Chronic (5) Alcohol abuse Code(s): F10.10 - ALCOHOL ABUSE, UNCOMPLICATED Status: Chronic (6) Coagulopathy Status: Chronic (7) Anemia Code(s): D64.9 - ANEMIA, UNSPECIFIED Status: Chronic Qualifiers: Anemia type: unspecified type Qualified Code(s): D64.9 - Anemia, unspecified (8) Hyperlipidemia Code(s): E78.5 - HYPERLIPIDEMIA, UNSPECIFIED Status: Chronic Qualifiers: Hyperlipidemia type: unspecified Qualified Code(s): E78.5 - Hyperlipidemia, unspecified (9) Hypertension Code(s): I10 - ESSENTIAL (PRIMARY) HYPERTENSION Status: Chronic Qualifiers: Hypertension type: essential hypertension Qualified Code(s): I10 - Essential (primary) hypertension (10) Liver cirrhosis, alcoholic Code(s): K70.30 - ALCOHOLIC CIRRHOSIS OF LIVER WITHOUT ASCITES Status: Chronic Qualifiers: Ascites presence: without ascites Qualified Code(s): K70.30 - Alcoholic cirrhosis of liver without ascites - Plan is on cefepime, levaquin and vanc protonix, steroids, nebs weaning per pulm advice will get 1 u prbc for a total of 5 this admission, one dose vit K iv, may need ffp if he continues to bleed poor prognosis d/w sister and POA over phone and gave full updates sister wants him to be transfered to higher level of care, she specifically prefers a place where hepatologists are available to help with his condition, I have informed her he has too many med issues/organ failures now with pna, sepsis, pancytopenia, coagulopathy etc and may not have overt advantage in transferring due to above. I have d/w reg above request, he will talk to her later. HD as tolerated, sbp around 100, not on pressors, is on midodrine.
[2020-06-05] MEDS: Norepinephrine 8 MG in Dextrose 5% in Water 242 ML IVPB PRN (15:48)
[2020-06-05] MEDS: Cefepime 2 GM in Sodium Chloride 0.9% 100 ML IVPB SCH (20:23)
[2020-06-06] MEDS: Metoclopramide HCl 10 MG/2 ML VIAL IVP SCH ×4 (00:06→18:26)
[2020-06-06] MEDS: Norepinephrine 8 MG in Dextrose 5% in Water 242 ML IVPB PRN ×5 (00:06→23:18)
[2020-06-06] MEDS: Lorazepam 2 MG/ML VIAL SLOW IVP PRN (00:25)
[2020-06-06] MEDS: Vancomycin HCl 750 MG in Sodium Chloride 0.9% 250 ML 250 ML IVPB SCH (01:56)
[2020-06-06 05:44] LABS: Band 31 % (5-11); Hemoglobin 6.2 g/dL (14.0-18.0); Hypochromia SLIGHT = 6-15 cells (100X) (0-5/hpf); Lymphocytes 8 % (21-51); MDiff Complete? YES; Macrocytosis SLIGHT = 6-15 cells (100X) (0-5/hpf); Mean Corpuscular HGB CONC 33.2 g/dL (32.0-36.0); Mean Corpuscular Hemoglobin 35.3 pg (27.0-31.0); Mean Platelet Volume 10.7 fL (7.4-10.4); Metamyelocyte 1 % (0-0); Monocytes 1 % (0-10); Neutrophil 58 % (42-75); Platelet Count 83 thou/uL (130-400); Platelet Morphology Comment Appears Decreased; RBC Distribution Width 25.4 % (11.5-14.5); Reactive Lymphocytes 1 % (0-10); Red Blood Cell (RBC) Count 1.76 mill/uL (4.70-6.10); White Blood Cell (WBC) Count 23.6 thou/uL (4.8-10.8)
[2020-06-06 05:51] LABS: ALT (SGPT) 39 U/L (8-55); AST (SGOT) 55 U/L (5-34); Albumin 3.3 g/dL (3.5-5.0); Alkaline Phosphatase 49 U/L (40-110); Anion Gap 18 mmol/L (10-20); BUN (Urea Nitrogen) 113 mg/dL (8.4-25.7); Bilirubin, Total 7.8 mg/dL (0.2-1.2); Calc. Creatinine Clearance 30 mL/min (70-130); Calcium 8.6 mg/dL (7.8-10.44); Carbon Dioxide 23 mmol/L (22-29); Chloride 98 mmol/L (98-107); Estimated GFR-MDRD 17; Glucose 186 mg/dL (70-105); Potassium 5.2 mmol/L (3.5-5.1); Protein, Total 5.3 g/dL (6.0-8.3); Sodium 134 mmol/L (136-145)
[2020-06-06] MEDS: Propofol 1,000 MG/100 ML VIAL IV PRN ×2 (05:58→19:35)
[2020-06-06 08:34] LABS: Actual Bicarbonate (HCO3a) 19.1 mEq/L (22-28); Analyzer IN Cardio OR; Base Excess (BEa) -5.6 mEq/L (-2.0 to +3.0); CO2 Tension 33.6 mmHg (35.0-45.0); Calcium, Ionized (arterial) 1.13 mmol/L (1.12-1.30); Carboxyhemoglobin (COHb) 1.4 gm% (0.0-3.0); Hemoglobin (Hb) 6.4 g/dL (14.0-18.0); Potassium - ABG Lab 4.91 mmol/L (3.70-5.30); pH, Arterial 7.37 (7.35-7.45)
[2020-06-06 08:38] LABS: Puncture Site RRA
[2020-06-06] MEDS: Hydrocortisone 1% Cream 30 GM TUBE TOP SCH ×2 (09:00→20:48)
[2020-06-06] MEDS: Clotrimazole 1 % Cream 30 GM TUBE TOP SCH ×2 (09:00→20:47)
--- NOTE | 2020-06-06 09:59 | PRG ---
DATE OF SERVICE: 06/06/2020 SUBJECTIVE: Oli Hodgson remains intubated in the vent, sedated. He is being dialyzed this morning. OBJECTIVE: VITAL SIGNS: His maximum temperature is 98.3, pulse 102. On 40%, his sats are 98%. Blood pressure 89/41. CHEST: No wheezing. No crackles. CARDIAC: Normal S1, S2. No gallops. ABDOMEN: No masses. LABORATORY DATA: White count 23,000, H and H 6 and 18. PO2 79, pCO2 is 33, pH 7.37, rate is 18, on 8 of PEEP. Creatinine 3, BUN 13. ASSESSMENT: Multiorgan failure, respiratory failure, renal failure, severe anemia, and thrombocytopenia. PLAN: Decrease the PEEP. Still not weanable. Continue supportive care. He will probably need nutrition in the next several days. He probably needs to be transfused. We will follow. One-half hour of critical care time. Job ID: [id number]
[2020-06-06] MEDS: Pantoprazole 40 MG VIAL IVP SCH ×2 (10:04→20:46)
[2020-06-06] MEDS: methylPREDNISolone Sod Succ 40 MG VIAL IVP SCH ×2 (11:06→20:42)
--- NOTE | 2020-06-06 11:42 | PRG ---
DATE OF SERVICE: 06/06/2020 SUBJECTIVE: A 59-year-old gentleman being seen for end-stage renal disease. The patient is intubated. OBJECTIVE: General: The patient is awake and alert. The patient is resting. Vital Signs: Afebrile, pulse 119, breathing at 16, blood pressure 89/41. HEENT: Head normocephalic and atraumatic. Eyes intact, no ulcers. Nose intact, no ulcers. Ears intact, no ulcers. Neck: Supple. No JVD. Chest: Symmetrical and clear. Cardiovascular: Shows S1 and S2, no rub, no murmur. Gastrointestinal: Abdomen is soft, bowel sounds positive. Extremities: Show no edema or ulcers. Skin: Shows no rash or petechiae. Musculoskeletal: Shows no joint swelling or stiffness. Genitourinary: Shows no Bruner or CVA tenderness. Neurologic: Motor intact. Cranial nerves intact. LABORATORY DATA: Labs show hemoglobin 6.2. Potassium 5.2. ASSESSMENT AND PLAN: Stage 3 chronic kidney disease, plan dialysis. Hyperkalemia, plan dialysis. Anemia, we will give transfusion. Overall prognosis is poor. Job ID: [id number]
[2020-06-06] MEDS: Midodrine HCl 5 MG TAB PO SCH ×3 (12:36→22:48)
[2020-06-06] MEDS: Folic Acid 1 MG TAB PO SCH (12:36)
[2020-06-06] MEDS: Thiamine 100 MG TAB PER TUBE SCH (12:36)
--- NOTE | 2020-06-06 15:02 | PDOC.HOSPP ---
- Subjective Encounter Date: 06/06/20 Encounter Time: 12:00 Subjective: is getting HD, on vent sedated girl friend at bedside - Objective Vital Signs & Weight: Vital Signs (12 hours) Temp Pulse Resp 06/06/20 14:06 130 H 06/06/20 11:02 119 H 06/06/20 08:48 102 H 06/06/20 06:00 18 06/06/20 04:00 98.3 F 18 Weight Admit Weight 210 lb Weight 225 lb 4.999 oz Most Recent Monitor Data Heart Rate from ECG 101 NIBP 110/47 NIBP BP-Mean 68 Respiration from ECG 14 SpO2 100 I&O: 06/05/20 06/06/20 06/07/20 06:59 06:59 06:59 Intake Total 2326 1555 1180 Output Total 250 1215 Balance 2076 340 1180 Result Diagrams: 06/06/20 04:55 06/06/20 04:55 Hospitalist ROS - Medication Medications: Active Medications Generic Name Dose Route Start Last Admin Trade Name Freq PRN Reason Stop Dose Admin Albuterol/Ipratropium 3 ml 05/31/20 10:30 06/06/20 14:06 Ipratropium/Albuterol Sulfate 3 Ml Neb NEB 3 ml [id number] LAURIE Administration Clotrimazole 0 gm 05/26/20 21:00 06/05/20 20:32 Clotrimazole 1 % Cream 30 Gm Tube TOP 1 applic BID LAURIE Administration Folic Acid 1 mg 05/25/20 09:00 06/06/20 12:36 Folic Acid 1 Mg Tab PO Not Given DAILY LAURIE Hydrocortisone/Aloe 1.5 gm 05/25/20 21:00 06/05/20 20:33 Hydrocortisone 1% Cream 30 Gm Tube TOP 1 applic BID LAURIE Administration Fentanyl Citrate 2,000 mcg/ 100 mls @ 0 mls/hr 05/29/20 11:45 06/05/20 20:18 Sodium Chloride IV 06/28/20 11:45 100 mls INF LAURIE Administration Protocol Per Protocol Levofloxacin 250 mg/ Device 50 mls @ 100 mls/hr 05/31/20 10:00 06/06/20 11:04 IVPB 50 mls 1000 LAURIE Administration Cefepime HCl 2 gm/ Sodium 100 mls @ 200 mls/hr 06/02/20 21:00 06/05/20 20:23 Chloride IVPB 100 mls 2100 LAURIE Administration Multivitamins 10 ml/ Sodium 510 mls @ 0 mls/hr 06/03/20 12:00 06/05/20 12:13 Chloride IV Not Given 1200 LAURIE KVO Vancomycin HCl 750 mg/ Sodium 250 mls @ 250 mls/hr 06/05/20 01:00 06/06/20 01:56 Chloride IVPB 250 mls 0100 LAURIE Administration Norepinephrine Bitartrate 8 mg 250 mls @ 0 mls/hr 06/05/20 03:15 06/06/20 13:05 / Dextrose/Water IVPB 250 mls INF PRN Administration TITRATE TO SYST >90 Protocol Titrate Lorazepam 2 mg 05/29/20 11:45 06/06/20 00:25 Lorazepam 2 Mg/Ml Vial SLOW IVP 06/28/20 11:45 2 mg Q1H PRN Administration Breakthrough agitation Methylprednisolone Sodium Succinate 20 mg 05/28/20 21:00 06/06/20 11:06 Methylprednisolone Sod Succ 40 Mg Vial IVP 20 mg Q12HR LAURIE Administration Metoclopramide HCl 10 mg 06/02/20 18:00 06/06/20 12:52 Metoclopramide Hcl 10 Mg/2 Ml Vial IVP 10 mg Q6HR LAURIE Administration Midodrine 10 mg 06/06/20 09:00 06/06/20 12:36 Midodrine Hcl 5 Mg Tab PO Not Given TID LAURIE Ondansetron HCl 4 mg 05/28/20 19:14 05/28/20 19:20 Ondansetron Pf 4 Mg/2 Ml Vial IVP 4 mg Q6H PRN Administration Nausea/Vomiting Propofol 1,000 mg 05/29/20 11:45 06/06/20 05:58 Propofol 1,000 Mg/100 Ml Vial IV 06/28/20 11:45 1,000 mg INF PRN Administration TO ACHIEVE GOAL RASS Protocol Sodium Chloride 10 ml 05/25/20 09:00 06/05/20 20:33 Flush - Normal Saline 10 Ml Syringe IVF 10 ml Q12HR LAURIE Administration Thiamine HCl 100 mg 06/04/20 09:00 06/06/20 12:36 Thiamine 100 Mg Tab PER TUBE Not Given DAILY LAURIE Vecuronium [place] 10 mg 05/30/20 11:34 06/02/20 00:12 Vecuronium 10 Mg Vial IV 10 mg Q1H PRN Administration NEUOMUSCULAR BLOCKADE/VENTILAT Venlafaxine HCl 150 mg 05/27/20 09:00 05/29/20 10:10 Venlafaxine Hcl Xr 150 Mg Cap PO 150 mg DAILY LAURIE Administration - Exam General Appearance: ill appearing Eye: PERRL, scleral icterus ENT: no oropharyngeal lesions, dry oral mucosa Neck: supple, no JVD Heart: RRR, no murmur Respiratory: no wheezes, no rales, rhonchi Gastrointestinal: soft, non-tender, non-distended, normal bowel sounds Extremities: no cyanosis, no edema Neurological: cranial nerve grossly intact, no focal deficits Hosp A/P (1) Acute respiratory failure with hypoxia Code(s): J96.01 - ACUTE RESPIRATORY FAILURE WITH HYPOXIA Status: Acute (2) PNA (pneumonia) Code(s): J18.9 - PNEUMONIA, UNSPECIFIED ORGANISM Status: Acute Qualifiers: Pneumonia type: aspiration pneumonia Laterality: bilateral (3) Acute renal failure Status: Acute (4) Thrombocytopenia Code(s): D69.6 - THROMBOCYTOPENIA, UNSPECIFIED Status: Chronic (5) Alcohol abuse Code(s): F10.10 - ALCOHOL ABUSE, UNCOMPLICATED Status: Chronic (6) Coagulopathy Status: Chronic (7) Anemia Code(s): D64.9 - ANEMIA, UNSPECIFIED Status: Chronic Qualifiers: Anemia type: unspecified type Qualified Code(s): D64.9 - Anemia, unspecified (8) Hyperlipidemia Code(s): E78.5 - HYPERLIPIDEMIA, UNSPECIFIED Status: Chronic Qualifiers: Hyperlipidemia type: unspecified Qualified Code(s): E78.5 - Hyperlipidemia, unspecified (9) Hypertension Code(s): I10 - ESSENTIAL (PRIMARY) HYPERTENSION Status: Chronic Qualifiers: Hypertension type: essential hypertension Qualified Code(s): I10 - Essential (primary) hypertension (10) Liver cirrhosis, alcoholic Code(s): K70.30 - ALCOHOLIC CIRRHOSIS OF LIVER WITHOUT ASCITES Status: Chronic Qualifiers: Ascites presence: without ascites Qualified Code(s): K70.30 - Alcoholic cirrhosis of liver without ascites (11) Alcoholic hepatitis Code(s): K70.10 - ALCOHOLIC HEPATITIS WITHOUT ASCITES Status: Acute Qualifiers: Ascites presence: without ascites Qualified Code(s): K70.10 - Alcoholic hepatitis without ascites - Plan is on levophed, cefepime, levaquin and vanc, wbc is still elevated and going up. Will reculture and see if anything grows while on antibiotics protonix, steroids, nebs weaning per pulm advice will get 2 u prbc for a total of 7 this admission, 3 ffp's for ongoing oozing and suspected gi bleed, he got one dose vit K iv (06/05) very poor prognosis, unlikely to survive this hospitalization. d/w sister and POA over phone and gave full updates (06/04, 06/05. 06/06) sister wants him to be transfered to higher level of care, she specifically prefers a place where hepatologists are available to help with his condition, I have informed her he has too many med issues/organ failures now, on levophed, pna, sepsis, pancytopenia, coagulopathy etc and may not have overt advantage in transferring due to above. She also spoke to on 06/05 and he has conveyed the same as far as I understand from family. HD as tolerated, sbp around 80-100, on pressors, is on midodrine.
[2020-06-06] MEDS: fentaNYL Citrate/PF 2,000 MCG in Sodium Chloride 0.9% 60 ML IV SCH (15:39)
[2020-06-06] MEDS: Cefepime 2 GM in Sodium Chloride 0.9% 100 ML IVPB SCH (20:40)
[2020-06-07] MEDS: Metoclopramide HCl 10 MG/2 ML VIAL IVP SCH ×5 (00:32→23:25)
[2020-06-07] MEDS: Vancomycin HCl 750 MG in Sodium Chloride 0.9% 250 ML 250 ML IVPB SCH (00:32)
[2020-06-07 01:31] LABS: Vancomycin, Trough 21.9 ug/mL
[2020-06-07 04:29] LABS: Band 20 % (5-11); Eosinophils 2 % (0-10); Lymphocytes 4 % (21-51); MDiff Complete? YES; Mean Corpuscular HGB CONC 34.2 g/dL (32.0-36.0); Mean Corpuscular Hemoglobin 34.4 pg (27.0-31.0); Monocytes 10 % (0-10); Neutrophil 64 % (42-75); Platelet Count 78 thou/uL (130-400); Platelet Morphology Comment Appears Decreased; RBC Distribution Width 22.7 % (11.5-14.5); Red Blood Cell (RBC) Count 1.76 mill/uL (4.70-6.10)
[2020-06-07 04:42] LABS: ALT (SGPT) 35 U/L (8-55); AST (SGOT) 54 U/L (5-34); Albumin 3.3 g/dL (3.5-5.0); Alkaline Phosphatase 44 U/L (40-110); Anion Gap 18 mmol/L (10-20); BUN (Urea Nitrogen) 91 mg/dL (8.4-25.7); Bilirubin, Total 7.7 mg/dL (0.2-1.2); Calc. Creatinine Clearance 34 mL/min (70-130); Calcium 8.3 mg/dL (7.8-10.44); Carbon Dioxide 25 mmol/L (22-29); Chloride 94 mmol/L (98-107); Estimated GFR-MDRD 19; Glucose 172 mg/dL (70-105); Potassium 4.5 mmol/L (3.5-5.1); Protein, Total 5.3 g/dL (6.0-8.3); Sodium 132 mmol/L (136-145)
[2020-06-07] MEDS: Propofol 1,000 MG/100 ML VIAL IV PRN ×3 (06:18→19:55)
[2020-06-07] MEDS: Norepinephrine 8 MG in Dextrose 5% in Water 242 ML IVPB PRN ×3 (06:51→18:30)
[2020-06-07] MEDS: fentaNYL Citrate/PF 2,000 MCG in Sodium Chloride 0.9% 60 ML IV SCH ×2 (06:54→22:30)
[2020-06-07 07:35] LABS: Actual Bicarbonate (HCO3a) 23.9 mEq/L (22-28); Analyzer IN Cardio ER; Base Excess (BEa) -0.5 mEq/L (-2.0 to +3.0); CO2 Tension 37.6 mmHg (35.0-45.0); Calcium, Ionized (arterial) 1.07 mmol/L (1.12-1.30); Carboxyhemoglobin (COHb) 0.3 gm% (0.0-3.0); O2 Tension (PaO2), arterial 78.7 mmHg (> 80.0); pH, Arterial 7.42 (7.35-7.45)
[2020-06-07] MEDS: Multivitamins, Adult 10 ML in Sodium Chloride 0.9% 500 ML IV SCH ×3 (07:58→15:32)
[2020-06-07] MEDS: Folic Acid 1 MG TAB PO SCH (08:06)
[2020-06-07] MEDS ORDERED: Vancomycin 1 GM in Premix Bag 1 BAG IVPB SCH (08:15)
[2020-06-07] MEDS ORDERED: HOLD VANCOMYCIN FOR LEVEL >20 FS SCH (08:15)
[2020-06-07] MEDS ORDERED: Vancomycin HCl 750 MG in Sodium Chloride 0.9% 250 ML 250 ML IVPB SCH (08:15)
[2020-06-07] MEDS ORDERED: Vancomycin HCl 1.25 GM in Sodium Chloride 0.9% 250 ML 250 ML IVPB SCH (08:15)
[2020-06-07] MEDS ORDERED: Vancomycin Sliding Scale 1 EACH FS ONE (08:15)
[2020-06-07] MEDS ORDERED: Vancomycin HCl 1.5 GM in Sodium Chloride 0.9% 250 ML 300 ML IVPB SCH (08:15)
[2020-06-07 08:16] LABS: Hemoglobin (Hb) 5.9 g/dL (14.0-18.0); Puncture Site RRA
[2020-06-07] MEDS: methylPREDNISolone Sod Succ 40 MG VIAL IVP SCH ×2 (08:23→19:57)
[2020-06-07] MEDS: Pantoprazole 40 MG VIAL IVP SCH ×2 (08:23→19:55)
[2020-06-07] MEDS: Hydrocortisone 1% Cream 30 GM TUBE TOP SCH ×2 (08:29→19:55)
[2020-06-07] MEDS: Clotrimazole 1 % Cream 30 GM TUBE TOP SCH ×2 (08:29→19:55)
[2020-06-07] MEDS: Thiamine 100 MG TAB PER TUBE SCH (08:29)
[2020-06-07] MEDS ORDERED: Phytonadione 10 MG/ML AMP PO SCH (09:00)
[2020-06-07] MEDS ORDERED: EPINEPHrine 1 MG/10 ML Abboject SYRINGE ONE (11:21)
--- NOTE | 2020-06-07 11:46 | PRG ---
DATE OF SERVICE: 06/07/2020 SUBJECTIVE: A 59-year-old gentleman, being seen for acute kidney injury, dialysis dependent. OBJECTIVE: General: The patient is resting. Vital Signs: Afebrile, pulse 75, breathing at 16, blood pressure 114/47. HEENT: Head normocephalic and atraumatic. Eyes intact, no ulcers. Nose intact, no ulcers. Ears intact, no ulcers. Neck: Supple. No JVD. Chest: Symmetrical and clear. Cardiovascular: Shows S1 and S2, no rub, no murmur. Gastrointestinal: Abdomen is soft, bowel sounds positive. Extremities: Show no edema or ulcers. Skin: Shows no rash or petechiae. Musculoskeletal: Shows no joint swelling or stiffness. Genitourinary: Shows no Bruner or CVA tenderness. Neurologic: Motor intact. Cranial nerves intact. LABORATORY DATA: Show hemoglobin is 6. ASSESSMENT AND PLAN: 1. Stage 6 chronic kidney disease, dialysis dependent. No indication for dialysis today. 2. Hyperkalemia, improved. 3. Anemia. Management per primary team. The patient will need blood and dialysis. 4. Overall, prognosis is poor. I would recommend Palliative Care consultation. The patient has multiorgan failure. Job ID: [id number]
[2020-06-07] MEDS: Midodrine HCl 5 MG TAB PO SCH ×3 (11:58→19:56)
--- NOTE | 2020-06-07 14:15 | PDOC.HOSPP ---
- Subjective Encounter Date: 06/07/20 Encounter Time: 08:40 Subjective: on vent, sedated girl friend at bedside - Objective Vital Signs & Weight: Vital Signs (12 hours) Temp Pulse Resp BP Pulse Ox 06/07/20 12:37 98.3 F 06/07/20 12:00 98.3 F 13 06/07/20 10:00 11 L 06/07/20 09:00 91 101/39 L 06/07/20 08:00 16 100 06/07/20 07:00 98.6 F 06/07/20 06:00 16 06/07/20 04:00 98.0 F 14 06/07/20 02:17 101 H 107/49 L Weight Admit Weight 210 lb Weight 223 lb 5.252 oz Most Recent Monitor Data Heart Rate from ECG 113 NIBP 97/48 NIBP BP-Mean 64 Respiration from ECG 17 SpO2 100 I&O: 06/06/20 06/07/20 06/08/20 06:59 06:59 06:59 Intake Total 1555 3417.0 350 Output Total 1215 269 45 Balance 340 3148.0 305 Result Diagrams: 06/07/20 04:10 06/07/20 04:10 Hospitalist ROS - Medication Medications: Active Medications Generic Name Dose Route Start Last Admin Trade Name Freq PRN Reason Stop Dose Admin Albuterol/Ipratropium 3 ml 05/31/20 10:30 06/07/20 10:58 Ipratropium/Albuterol Sulfate 3 Ml Neb NEB Not Given [id number] LAURIE Clotrimazole 0 gm 05/26/20 21:00 06/07/20 08:29 Clotrimazole 1 % Cream 30 Gm Tube TOP 1 applic BID LAURIE Administration Folic Acid 1 mg 05/25/20 09:00 06/07/20 08:06 Folic Acid 1 Mg Tab PO Not Given DAILY LAURIE Hydrocortisone/Aloe 1.5 gm 05/25/20 21:00 06/07/20 08:29 Hydrocortisone 1% Cream 30 Gm Tube TOP 1 applic BID LAURIE Administration Fentanyl Citrate 2,000 mcg/ 100 mls @ 0 mls/hr 05/29/20 11:45 06/07/20 06:54 Sodium Chloride IV 06/28/20 11:45 100 mls INF LAURIE Administration Protocol Per Protocol Multivitamins 10 ml/ Sodium 510 mls @ 0 mls/hr 06/03/20 12:00 06/07/20 13:23 Chloride IV Not Given 1200 LAURIE KVO Norepinephrine Bitartrate 8 mg 250 mls @ 0 mls/hr 06/05/20 03:15 06/07/20 12:03 / Dextrose/Water IVPB 250 mls INF PRN Administration TITRATE TO SYST >90 Protocol Titrate Lorazepam 2 mg 05/29/20 11:45 06/06/20 00:25 Lorazepam 2 Mg/Ml Vial SLOW IVP 06/28/20 11:45 2 mg Q1H PRN Administration Breakthrough agitation Methylprednisolone Sodium Succinate 20 mg 05/28/20 21:00 06/07/20 08:23 Methylprednisolone Sod Succ 40 Mg Vial IVP 20 mg Q12HR LAURIE Administration Metoclopramide HCl 10 mg 06/02/20 18:00 06/07/20 06:08 Metoclopramide Hcl 10 Mg/2 Ml Vial IVP 10 mg Q6HR LAURIE Administration Midodrine 10 mg 06/06/20 09:00 06/07/20 11:58 Midodrine Hcl 5 Mg Tab PO Not Given TID LAURIE Ondansetron HCl 4 mg 05/28/20 19:14 05/28/20 19:20 Ondansetron Pf 4 Mg/2 Ml Vial IVP 4 mg Q6H PRN Administration Nausea/Vomiting Pantoprazole Sodium 40 mg 06/06/20 21:00 06/07/20 08:23 Pantoprazole 40 Mg Vial IVP 40 mg BID LAURIE Administration Propofol 1,000 mg 05/29/20 11:45 06/07/20 06:18 Propofol 1,000 Mg/100 Ml Vial IV 06/28/20 11:45 1,000 mg INF PRN Administration TO ACHIEVE GOAL RASS Protocol Sodium Chloride 10 ml 05/25/20 09:00 06/07/20 08:27 Flush - Normal Saline 10 Ml Syringe IVF 10 ml Q12HR LAURIE Administration Thiamine HCl 100 mg 06/04/20 09:00 06/07/20 08:29 Thiamine 100 Mg Tab PER TUBE Not Given DAILY LAURIE Vecuronium [place] 10 mg 05/30/20 11:34 06/02/20 00:12 Vecuronium 10 Mg Vial IV 10 mg Q1H PRN Administration NEUOMUSCULAR BLOCKADE/VENTILAT Venlafaxine HCl 150 mg 05/27/20 09:00 05/29/20 10:10 Venlafaxine Hcl Xr 150 Mg Cap PO 150 mg DAILY LAURIE Administration - Exam General Appearance: ill appearing Eye: scleral icterus ENT: normocephalic atraumatic, dry oral mucosa Neck: supple, no JVD Heart: RRR, no murmur Respiratory: no wheezes, no rales Gastrointestinal: soft, non-tender, non-distended, normal bowel sounds Extremities: no cyanosis, no edema Neurological: cranial nerve grossly intact, no focal deficits Hosp A/P (1) Acute respiratory failure with hypoxia Code(s): J96.01 - ACUTE RESPIRATORY FAILURE WITH HYPOXIA Status: Acute (2) PNA (pneumonia) Code(s): J18.9 - PNEUMONIA, UNSPECIFIED ORGANISM Status: Acute Qualifiers: Pneumonia type: aspiration pneumonia Laterality: bilateral (3) Acute renal failure Status: Acute (4) Thrombocytopenia Code(s): D69.6 - THROMBOCYTOPENIA, UNSPECIFIED Status: Chronic (5) Alcohol abuse Code(s): F10.10 - ALCOHOL ABUSE, UNCOMPLICATED Status: Chronic (6) Coagulopathy Status: Chronic (7) Anemia Code(s): D64.9 - ANEMIA, UNSPECIFIED Status: Chronic Qualifiers: Anemia type: unspecified type Qualified Code(s): D64.9 - Anemia, unspecifi ed (8) Hyperlipidemia Code(s): E78.5 - HYPERLIPIDEMIA, UNSPECIFIED Status: Chronic Qualifiers: Hyperlipidemia type: unspecified Qualified Code(s): E78.5 - Hyperlipidemia, unspecified (9) Hypertension Code(s): I10 - ESSENTIAL (PRIMARY) HYPERTENSION Status: Chronic Qualifiers: Hypertension type: essential hypertension Qualified Code(s): I10 - E ssential (primary) hypertension (10) Liver cirrhosis, alcoholic Code(s): K70.30 - ALCOHOLIC CIRRHOSIS OF LIVER WITHOUT ASCITES Status: Chronic Qualifiers: Ascites presence: without ascites Qualified Code(s): K70.30 - Alcoholic cirrhosis of liver without ascites (11) Alcoholic hepatitis Code(s): K70.10 - ALCOHOLIC HEPATITIS WITHOUT ASCITES Status: Acute Qualifiers: Ascites presence: without ascites Qualified Code(s): K70.10 - Alcoholic hepatitis without ascites - Plan is on levophed, cefepime, levaquin and vanc, wbc is still elevated and going up, blood cs x4 are -ve so far. protonix, steroids, nebs weaning per pulm advice will get 2 u prbc for a total of 9 this admission, he got 3 ffp's for ongoing oozing and suspected gi bleed 06/05, he got one dose vit K iv (06/05), oral vit k 10mg daily x 2 from today. very poor prognosis, unlikely to survive this hospitalization. d/w sister and POA over phone and gave full updates (06/04, 06/05. 06/06, 06/07) HD as tolerated, sbp around 80-100, on pressors, is on midodrine.
[2020-06-07] MEDS ORDERED: Phytonadione 10 MG/ML AMP SC SCH (15:45)
--- NOTE | 2020-06-07 17:18 | PRG ---
DATE OF SERVICE: 06/07/2020 SUBJECTIVE: Oli Resendez remains sedated for ventilation. OBJECTIVE: VITAL SIGNS: Heart rates in the 90s, blood pressure 95/43, respiratory rates in the teens, FiO2 is at 40. LUNGS: Remarkable for coarse equal breath sounds. HEART: Regular rhythm. ABDOMEN: Soft. EXTREMITIES: Without edema. LABORATORY DATA: White count 27, hemoglobin 6, and 20% bands on his peripheral smear. Sodium 132, potassium 4.5, chloride 94, bicarb 25, BUN 91, and creatinine 3.37. IMPRESSION: 1. Respiratory failure secondary to alcohol withdrawal. 2. Pulmonary edema. 3. Blood loss anemia. 4. Acute renal failure. 5. Cirrhosis/fatty liver. PLAN: Continue supportive care with dialysis, transfusion with dialysis. We will adjust his sedative drugs today, although at this point in time given his multiple medical problems, it would probably not be leyva to extubate him. Critical care time 35 min. Job ID: [id number] MTDD
[2020-06-07] MEDS: Cefepime 0.5 GM, Admixture Fee 1 EACH in Sodium Chloride 0.9% 100 ML IVPB SCH (20:22)
[2020-06-08] MEDS ORDERED: Vancomycin HCl 500 MG in Sodium Chloride 0.9% 100 ML IVPB SCH (01:00)
[2020-06-08 04:35] LABS: Band 14 % (5-11); Eosinophils 2 % (0-10); Hemoglobin 7.5 g/dL (14.0-18.0); Hypochromia SLIGHT = 6-15 cells (100X) (0-5/hpf); Lymphocytes 2 % (21-51); MDiff Complete? YES; Mean Corpuscular HGB CONC 34.9 g/dL (32.0-36.0); Mean Corpuscular Hemoglobin 34.1 pg (27.0-31.0); Mean Corpuscular Volume 97.7 fL (78.0-98.0); Mean Platelet Volume 9.5 fL (7.4-10.4); Monocytes 15 % (0-10); Neutrophil 67 % (42-75); Platelet Count 73 thou/uL (130-400); Platelet Morphology Comment Appears Adequate; RBC Distribution Width 18.9 % (11.5-14.5); Red Blood Cell (RBC) Count 2.19 mill/uL (4.70-6.10); White Blood Cell (WBC) Count 28.3 thou/uL (4.8-10.8)
[2020-06-08 04:47] LABS: ALT (SGPT) 32 U/L (8-55); AST (SGOT) 57 U/L (5-34); Alkaline Phosphatase 42 U/L (40-110); Anion Gap 21 mmol/L (10-20); BUN (Urea Nitrogen) 123 mg/dL (8.4-25.7); Bilirubin, Total 6.3 mg/dL (0.2-1.2); Calc. Creatinine Clearance 26 mL/min (70-130); Calcium 7.8 mg/dL (7.8-10.44); Carbon Dioxide 19 mmol/L (22-29); Chloride 93 mmol/L (98-107); Estimated GFR-MDRD 14; Glucose 152 mg/dL (70-105); Potassium 5.4 mmol/L (3.5-5.1); Sodium 128 mmol/L (136-145)
[2020-06-08] MEDS: Propofol 1,000 MG/100 ML VIAL IV PRN (05:14)
[2020-06-08] MEDS: Metoclopramide HCl 10 MG/2 ML VIAL IVP SCH ×4 (05:14→23:38)
--- NOTE | 2020-06-08 06:11 | PRG ---
DATE OF SERVICE: 06/07/2020 SUBJECTIVE: Mr. Oli Resendez is a 59-year-old seen by me a week ago with jaundice and alcohol withdrawal. He was transferred over the weekend to the ICU and has been intubated because of respiratory distress and bilateral pneumonia. This was done, I believe, on 05/23/2020. I signed off a week ago because from GI standpoint nothing acute was going on. He has ARDS, bilateral pneumonia and respiratory failure and renal failure. He is on dialysis. I was asked to see the patient by Dr. Sigrid Carranza this morning because of drop in blood count and NG tube showed some dark blood. When I saw him in the ICU, he was on the ventilator, sedated. The NG tube has no blood, but in the catheter, there was 200 mL of dark blood seen. OBJECTIVE: VITAL SIGNS: Stable. Heart rate 92, blood pressure 110/46. CARDIOVASCULAR SYSTEM: Normal heart sounds. LUNGS: Clear to auscultation. ABDOMEN: Soft. No organomegaly. No tenderness. LABORATORY DATA: Shows a drop in blood count slowly. On 06/03/2020, hemoglobin was 7.4, down to 6.9 and 6.2 yesterday. Today, the hemoglobin 6, hematocrit 17.6, MCV 100. Apparently he has been transfused 6 units over the last several days. IMPRESSION: 1. Respiratory failure, acute respiratory distress syndrome. 2. Renal failure, possible hepatorenal syndrome, on dialysis. 3. Chronic alcoholic liver disease, possibly underlying liver cirrhosis versus alcoholic hepatitis. 4. Anemia due to blood loss. I did talk to the patient's at bedside and explained to her the need for emergent EGD. She is agreeable. Apparently, his sister signed the consent earlier. PLAN: Emergent EGD and I will make further recommendation after EGD. Job ID: [id number]
[2020-06-08 08:48] LABS: Actual Bicarbonate (HCO3a) 20.1 mEq/L (22-28); Base Excess (BEa) -5.7 mEq/L (-2.0 to +3.0); Calcium, Ionized (arterial) 1.01 mmol/L (1.12-1.30); Carboxyhemoglobin (COHb) 0.5 gm% (0.0-3.0); Hemoglobin (Hb) 7.7 g/dL (14.0-18.0); O2 Tension (PaO2), arterial 94.5 mmHg (> 80.0); pH, Arterial 7.31 (7.35-7.45)
[2020-06-08 08:49] LABS: Puncture Site RRA
--- NOTE | 2020-06-08 09:17 | OP ---
DATE OF PROCEDURE: 06/07/2020 PROCEDURES PERFORMED: 1. Esophagogastroduodenoscopy. 2. Esophagogastroduodenoscopy with injection of 1:10,000 epinephrine. 3. Hemoclip placement x3 over the visceral vessel bleeding over the proximal stomach. PREOPERATIVE DIAGNOSIS: GI bleeding. POSTOPERATIVE DIAGNOSES: 1. No esophagitis seen. 2. No Sasha-Crocker seen. 3. Normal antrum and duodenum. 4. Visceral vessel active bleeding over the proximal stomach. There was a large amount of blood clots and fresh blood seen. DESCRIPTION OF PROCEDURE: The patient was already on the ventilator and was on propofol drip. He was given another loading dose of 10 mL. The patient was placed on the left lateral position and a bite block was placed. A Pentax video gastroscope under direct vision passed down the oropharynx past the GE junction into the stomach. There was some mucosal blood staining of the esophageal lumen. Water was used to wash out. No active bleeding seen in esophagus. There were no varicosities seen. The GE junction showed no tear or any bleeding. The patient had a very large amount of blood clots and fresh blood in the proximal stomach, fundus. All the gastric mucosa diffusely covered with fresh blood. The scope was advanced into the duodenal bulb and descending duodenum. No pathology seen in the duodenum. The pyloric channel showed no pathology. The gastric antrum showed no pathology. Water was irrigated and washed out. There was a bleeding vessel which was quite large and pulsatile over the gastric body. This was located over the proximal stomach. I did place 2 hemoclips. However, there was some persistent oozing of blood seen. Because of the above reason, the site was injected with 1:10,000 epinephrine at 1 mL increments to a total of 10 mL. Following this, bleeding stopped. One more clip placed for distal vessel with good hemostasis. Most of blood was suctioned out from the gastric fundus . However, some of the clots _were left behind in the stomach . The stomach decompressed and scope removed. RECOMMENDATION: 1. IV PPI. 2. Serial H and H. 3. Leave NG tube for today as there is risk of dislodging the clips with the NG replaced. Job ID: [id number] [facility]
--- NOTE | 2020-06-08 09:25 | PRG ---
DATE OF SERVICE: SUBJECTIVE: A 59-year-old gentleman being seen for end-stage renal disease due to acute renal failure. OBJECTIVE: GENERAL: The patient is resting on examination. VITAL SIGNS: Patient's resting vital signs are pulse 73, breathing 16, blood pressure 102/41. LABORATORY DATA: Labs shows hemoglobin 7.5. Potassium 5.4. ASSESSMENT AND PLAN: 1. Stage 6 chronic kidney disease. Dialysis. 2. Hyperkalemia. Dialysis. 3. Volume overload. Dialysis if blood pressure tolerates. Overall prognosis is poor. Job ID: [id number]
[2020-06-08] MEDS: ASCORBIC ACID IVPB SCH ×2 (09:35→10:09)
[2020-06-08] MEDS: SODIUM CHLORIDE 0.9% IVPB SCH ×2 (09:35→10:09)
[2020-06-08] MEDS: Folic Acid 1 MG TAB PO SCH (09:36)
[2020-06-08] MEDS: Thiamine 100 MG TAB PER TUBE SCH (09:37)
[2020-06-08] MEDS: Clotrimazole 1 % Cream 30 GM TUBE TOP SCH ×2 (09:45→20:53)
[2020-06-08] MEDS: methylPREDNISolone Sod Succ 40 MG VIAL IVP SCH ×2 (09:45→20:54)
[2020-06-08] MEDS: Hydrocortisone 1% Cream 30 GM TUBE TOP SCH ×2 (09:45→20:54)
[2020-06-08] MEDS: Pantoprazole 40 MG VIAL IVP SCH ×2 (09:45→20:54)
[2020-06-08] MEDS: Phytonadione 10 MG/ML AMP SC SCH (09:46)
[2020-06-08] MEDS: Midodrine HCl 5 MG TAB PO SCH ×3 (09:53→20:55)
[2020-06-08] MEDS ORDERED: Heparin 10,000 UNITS/ 10 ML VIAL ONE (12:29)
[2020-06-08] MEDS: Multivitamins, Adult 10 ML in Sodium Chloride 0.9% 500 ML IV SCH (12:59)
--- NOTE | 2020-06-08 13:37 | PDOC.HOSPP ---
- Subjective Encounter Date: 06/08/20 Encounter Time: 08:45 Subjective: on vent, sedated girlfriend at bedside - Objective Vital Signs & Weight: Vital Signs (12 hours) Temp Pulse Resp BP Pulse Ox 06/08/20 12:00 98.5 F 16 06/08/20 10:48 102 H 101/42 L 06/08/20 10:46 102 H 13 99 06/08/20 10:00 16 06/08/20 08:10 99 95/40 L 06/08/20 08:08 97 10 L 99 06/08/20 08:00 98.4 F 15 100 06/08/20 06:00 14 06/08/20 04:00 12 06/08/20 02:48 102 H 06/08/20 02:44 104 H 10 L 98 06/08/20 02:00 14 Weight Admit Weight 210 lb Weight 225 lb 1.471 oz Most Recent Monitor Data Heart Rate from ECG 106 NIBP 108/43 NIBP BP-Mean 64 Respiration from ECG 16 SpO2 100 I&O: 06/07/20 06/08/20 06/09/20 06:59 06:59 06:59 Intake Total 3417.0 1738 Output Total 269 265 52 Balance 3148.0 1473 -52 Result Diagrams: 06/08/20 03:30 06/08/20 03:30 Hospitalist ROS - Medication Medications: Active Medications Generic Name Dose Route Start Last Admin Trade Name Freq PRN Reason Stop Dose Admin Albuterol/Ipratropium 3 ml 05/31/20 10:30 06/08/20 10:46 Ipratropium/Albuterol Sulfate 3 Ml Neb NEB 3 ml [id number] LAURIE Administration Clotrimazole 0 gm 05/26/20 21:00 06/08/20 09:45 Clotrimazole 1 % Cream 30 Gm Tube TOP 1 applic BID LAURIE Administration Folic Acid 1 mg 05/25/20 09:00 06/08/20 09:36 Folic Acid 1 Mg Tab PO Not Given DAILY LAURIE Hydrocortisone/Aloe 1.5 gm 05/25/20 21:00 06/08/20 09:45 Hydrocortisone 1% Cream 30 Gm Tube TOP 1 applic BID LAURIE Administration Multivitamins 10 ml/ Sodium 510 mls @ 0 mls/hr 06/03/20 12:00 06/08/20 12:59 Chloride IV Not Given 1200 LAURIE KVO Norepinephrine Bitartrate 8 mg 250 mls @ 0 mls/hr 06/05/20 03:15 06/07/20 18:30 / Dextrose/Water IVPB 250 mls INF PRN Administration TITRATE TO SYST >90 Protocol Titrate Cefepime HCl 0.5 gm/ 100 mls @ 200 mls/hr 06/07/20 21:00 06/07/20 20:22 Miscellaneous Medication 1 IVPB 100 mls each/ Sodium Chloride 2100 LAURIE Administration Ascorbic Acid 500 mg/ Sodium 51 mls @ 102 mls/hr 06/08/20 09:00 06/08/20 10:09 Chloride IVPB 51 mls DAILY LAURIE Administration Methylprednisolone Sodium Succinate 20 mg 05/28/20 21:00 06/08/20 09:45 Methylprednisolone Sod Succ 40 Mg Vial IVP 20 mg Q12HR LAURIE Administration Metoclopramide HCl 10 mg 06/02/20 18:00 06/08/20 13:03 Metoclopramide Hcl 10 Mg/2 Ml Vial IVP 10 mg Q6HR LAURIE Administration Midodrine 10 mg 06/06/20 09:00 06/08/20 09:53 Midodrine Hcl 5 Mg Tab PO Not Given TID LAURIE Ondansetron HCl 4 mg 05/28/20 19:14 05/28/20 19:20 Ondansetron Pf 4 Mg/2 Ml Vial IVP 4 mg Q6H PRN Administration Nausea/Vomiting Pantoprazole Sodium 40 mg 06/06/20 21:00 06/08/20 09:45 Pantoprazole 40 Mg Vial IVP 40 mg BID LAURIE Administration Phytonadione 10 mg 06/08/20 09:00 06/08/20 09:46 Phytonadione 10 Mg/Ml Amp SC 06/09/20 09:01 10 mg DAILY LAURIE Administration Propofol 1,000 mg 05/29/20 11:45 06/08/20 05:14 Propofol 1,000 Mg/100 Ml Vial IV 06/28/20 11:45 1,000 mg INF PRN Administration TO ACHIEVE GOAL RASS Protocol Sodium Chloride 10 ml 05/25/20 09:00 06/08/20 09:47 Flush - Normal Saline 10 Ml Syringe IVF 10 ml Q12HR LAURIE Administration Thiamine HCl 100 mg 06/04/20 09:00 06/08/20 09:37 Thiamine 100 Mg Tab PER TUBE Not Given DAILY LAURIE Vecuronium [place] 10 mg 05/30/20 11:34 06/02/20 00:12 Vecuronium 10 Mg Vial IV 10 mg Q1H PRN Administration NEUOMUSCULAR BLOCKADE/VENTILAT Venlafaxine HCl 150 mg 05/27/20 09:00 05/29/20 10:10 Venlafaxine Hcl Xr 150 Mg Cap PO 150 mg DAILY LAURIE Administration - Exam General Appearance: ill appearing Eye: PERRL, scleral icterus ENT: no oropharyngeal lesions, dry oral mucosa Neck: supple, no JVD Heart: RRR, no murmur Respiratory: no wheezes, no rales, rhonchi Gastrointestinal: soft, non-tender, non-distended, normal bowel sounds Extremities: no cyanosis, no edema Neurological: cranial nerve grossly intact, no focal deficits Hosp A/P (1) Acute respiratory failure with hypoxia Code(s): J96.01 - ACUTE RESPIRATORY FAILURE WITH HYPOXIA Status: Acute (2) PNA (pneumonia) Code(s): J18.9 - PNEUMONIA, UNSPECIFIED ORGANISM Status: Acute Qualifiers: Pneumonia type: aspiration pneumonia Laterality: bilateral (3) Acute renal failure Status: Acute (4) Thrombocytopenia Code(s): D69.6 - THROMBOCYTOPENIA, UNSPECIFIED Status: Chronic (5) Alcohol abuse Code(s): F10.10 - ALCOHOL ABUSE, UNCOMPLICATED Status: Chronic (6) Coagulopathy Status: Chronic (7) Anemia Code(s): D64.9 - ANEMIA, UNSPECIFIED Status: Chronic Qualifiers: Anemia type: unspecified type Qualified Code(s): D64.9 - Anemia, unspecified (8) Hyperlipidemia Code(s): E78.5 - HYPERLIPIDEMIA, UNSPECIFIED Status: Chronic Qualifiers: Hyperlipidemia type: unspecified Qualified Code(s): E78.5 - Hyperlipidemia, unspecified (9) Hypertension Code(s): I10 - ESSENTIAL (PRIMARY) HYPERTENSION Status: Chronic Qualifiers: Hypertension type: essential hypertension Qualified Code(s): I10 - Essential (primary) hypertension (10) Liver cirrhosis, alcoholic Code(s): K70.30 - ALCOHOLIC CIRRHOSIS OF LIVER WITHOUT ASCITES Status: Chronic Qualifiers: Ascites presence: without ascites Qualified Code(s): K70.30 - Alcoholic cirrhosis of liver without ascites (11) Alcoholic hepatitis Code(s): K70.10 - ALCOHOLIC HEPATITIS WITHOUT ASCITES Status: Acute Qualifiers: Ascites presence: without ascites Qualified Code(s): K70.10 - Alcoholic hepatitis without ascites (12) Acute blood loss anemia Code(s): D62 - ACUTE POSTHEMORRHAGIC ANEMIA Status: Acute (13) GI bleed Code(s): K92.2 - GASTROINTESTINAL HEMORRHAGE, UNSPECIFIED Status: Acute Qualifiers: GI bleed type/associated pathology: gastric ulcer Qualified Code(s): K25.4 - Chronic or unspecified gastric ulcer with hemorrhage (14) PUD (peptic ulcer disease) Code(s): K27.9 - PEPTIC ULC, SITE UNSP, UNSP AC OR CHR, W/O HEMOR OR PERF Status: Acute - Plan is on levophed, cefepime, levaquin and vanc, wbc is still elevated and going up, blood cs x4 are -ve so far. protonix, steroids, nebs had egd 06/08, s/p hemaclip for visible vessel in stomach, no varices seen. weaning per pulm advice will get 2 u prbc for a total of 10 this admission, he got 3 ffp's for ongoing oozing and suspected gi bleed 06/05, he got one dose vit K iv (06/05), oral vit k 10mg daily x 2 very poor prognosis, unlikely to survive this hospitalization. d/w sister and POA over phone and gave full updates (06/04, 06/05. 06/06, 06/07) HD as tolerated, sbp around 80-100, on pressors, is on midodrine.
[2020-06-08 14:20] VITALS: BMI 29.7
[2020-06-08 14:52] VITALS: BP 121/56
--- NOTE | 2020-06-08 15:29 | PRG ---
DATE OF SERVICE: 06/08/2020 SUBJECTIVE: Oli Resendez remains mechanically ventilated. His endoscopy revealed a proximal stomach visible bleeding vessel that was injected. He has had some blood out of his endotracheal tube as well. He is not surprising with his coagulopathy. His INR is 2.5. bleed, he should get 4 units of fresh frozen plasma. He is still requiring dialysis. His BUN is 123, likely from blood in his gut, his creatinine is 4.3. Hemoglobin was 7.5 this morning. He is given another unit of blood. We will check a chest x-ray in the morning. His code status really needs to be addressed, although his sister was not willing to make him a DNR after he was intubated. There is a very little else that we can do for him from a therapeutic standpoint with regard to his liver and his kidney disease. His prognosis for survival is still extremely poor bleeding complication and it gets worse. Critical care time is 30 minutes. Job ID: [id number] [facility]
[2020-06-08] MEDS ORDERED: fentaNYL Citrate/PF 2,000 MCG in Sodium Chloride 0.9% 60 ML IV SCH (16:15)
[2020-06-08] MEDS: Cefepime 0.5 GM, Admixture Fee 1 EACH in Sodium Chloride 0.9% 100 ML IVPB SCH (20:53)
[2020-06-08] MEDS: Norepinephrine 8 MG in Dextrose 5% in Water 242 ML IVPB PRN (22:04)
[2020-06-09 03:49] LABS: White Blood Cell (WBC) Count 49.4 thou/uL (4.8-10.8)
[2020-06-09 04:02] LABS: Band 16 % (5-11); Hemoglobin 9.1 g/dL (14.0-18.0); Lymphocytes 3 % (21-51); MDiff Complete? YES; Mean Corpuscular Hemoglobin 32.9 pg (27.0-31.0); Mean Corpuscular Volume 96.9 fL (78.0-98.0); Mean Platelet Volume 8.8 fL (7.4-10.4); Monocytes 9 % (0-10); Neutrophil 72 % (42-75); Platelet Count 114 thou/uL (130-400); Platelet Morphology Comment Appears Decreased; RBC Distribution Width 18.5 % (11.5-14.5); Red Blood Cell (RBC) Count 2.77 mill/uL (4.70-6.10)
[2020-06-09 04:07] LABS: ALT (SGPT) 37 U/L (8-55); AST (SGOT) 64 U/L (5-34); Albumin 3.4 g/dL (3.5-5.0); Alkaline Phosphatase 58 U/L (40-110); Anion Gap 20 mmol/L (10-20); BUN (Urea Nitrogen) 76 mg/dL (8.4-25.7); Bilirubin, Total 7.3 mg/dL (0.2-1.2); Calc. Creatinine Clearance 35 mL/min (70-130); Calcium 7.6 mg/dL (7.8-10.44); Carbon Dioxide 24 mmol/L (22-29); Chloride 96 mmol/L (98-107); Estimated GFR-MDRD 20; Globulin 2.2 g/dL (2.4-3.5); Glucose 186 mg/dL (70-105); Potassium 4.8 mmol/L (3.5-5.1); Protein, Total 5.6 g/dL (6.0-8.3); Sodium 135 mmol/L (136-145)
[2020-06-09 04:16] LABS: Vancomycin, Random 18.8 ug/mL (See Comment)
[2020-06-09] MEDS: Metoclopramide HCl 10 MG/2 ML VIAL IVP SCH ×2 (05:30→12:06)
[2020-06-09] MEDS: Norepinephrine 8 MG in Dextrose 5% in Water 242 ML IVPB PRN (05:58)
[2020-06-09 08:22] LABS: Actual Bicarbonate (HCO3a) 23.2 mEq/L (22-28); Base Excess (BEa) -3.9 mEq/L (-2.0 to +3.0); CO2 Tension 52.1 mmHg (35.0-45.0); Calcium, Ionized (arterial) 0.96 mmol/L (1.12-1.30); Carboxyhemoglobin (COHb) 0.7 gm% (0.0-3.0); Hemoglobin (Hb) 9.4 g/dL (14.0-18.0); O2 Tension (PaO2), arterial 91.8 mmHg (> 80.0); Potassium - ABG Lab 4.81 mmol/L (3.70-5.30); pH, Arterial 7.27 (7.35-7.45)
[2020-06-09 08:24] LABS: ALV-art Gradient 128.275 mmHg (0-20); Puncture Site RRA
--- NOTE | 2020-06-09 08:25 | RAD ---
EXAM: Portable chest PROVIDED CLINICAL HISTORY: Respiratory insufficiency COMPARISON: 06/05/2020 FINDINGS: Interval development of more conspicuous perihilar airspace disease. Additional significant interval change with respect to the prior examination is not apparent. IMPRESSION: As above.
[2020-06-09] MEDS: SODIUM CHLORIDE 0.9% IVPB SCH (08:37)
[2020-06-09] MEDS: methylPREDNISolone Sod Succ 40 MG VIAL IVP SCH (08:37)
[2020-06-09] MEDS: ASCORBIC ACID IVPB SCH (08:37)
[2020-06-09] MEDS: Pantoprazole 40 MG VIAL IVP SCH (08:38)
[2020-06-09] MEDS: Hydrocortisone 1% Cream 30 GM TUBE TOP SCH (08:39)
[2020-06-09] MEDS: Clotrimazole 1 % Cream 30 GM TUBE TOP SCH (08:40)
[2020-06-09] MEDS ORDERED: Meropenem 500 MG in Sodium Chloride 0.9% 100 ML IVPB SCH (09:00)
[2020-06-09] MEDS: Folic Acid 1 MG TAB PO SCH (10:48)
[2020-06-09] MEDS: Thiamine 100 MG TAB PER TUBE SCH (10:49)
[2020-06-09] MEDS: Midodrine HCl 5 MG TAB PO SCH (10:49)
--- NOTE | 2020-06-09 11:08 | PRG ---
DATE OF SERVICE: 06/09/2020 SUBJECTIVE: A 59-year-old gentleman, being seen for acute kidney injury, dialysis dependent. The patient is resting. PHYSICAL EXAMINATION: General: The patient is awake and alert. Vital Signs: Afebrile, pulse 115, breathing at 16, blood pressure 117/55. HEENT: Head normocephalic and atraumatic. Eyes intact, no ulcers. Nose intact, no ulcers. Ears intact, no ulcers. Neck: Supple. No JVD. Chest: Symmetrical and clear. Cardiovascular: Shows S1 and S2, no rub, no murmur. Gastrointestinal: Abdomen is soft, bowel sounds positive. Extremities: Show no edema or ulcers. Skin: Shows no rash or petechiae. Musculoskeletal: Shows no joint swelling or stiffness. Genitourinary: Shows no Bruner or CVA tenderness. Neurologic: The patient is resting. LABORATORY DATA: Reviewed. ASSESSMENT AND PLAN: 1. Chronic kidney disease, stage 6. No indication for dialysis today. 2. Hypertension, stable. 3. Multiorgan failure. Prognosis is poor. We will discuss care with primary team. Job ID: [id number]
--- NOTE | 2020-06-09 11:29 | PDOC.FMACP ---
Advance Care Planning - Problem (1) Palliative care encounter Status: Acute Code(s): Z51.5 - ENCOUNTER FOR PALLIATIVE CARE (2) Acute blood loss anemia Status: Acute Code(s): D62 - ACUTE POSTHEMORRHAGIC ANEMIA (3) Acute renal failure Status: Acute (4) Acute respiratory failure with hypoxia Status: Acute Code(s): J96.01 - ACUTE RESPIRATORY FAILURE WITH HYPOXIA (5) Alcoholic hepatitis Status: Acute Code(s): K70.10 - ALCOHOLIC HEPATITIS WITHOUT ASCITES Qualifiers: Ascites presence: without ascites Qualified Code(s): K70.10 - Alcoholic hepatitis without ascites (6) Alcohol abuse Status: Chronic Code(s): F10.10 - ALCOHOL ABUSE, UNCOMPLICATED (7) Coagulopathy Status: Chronic (8) Hypertension Status: Chronic Code(s): I10 - ESSENTIAL (PRIMARY) HYPERTENSION Qualifiers: Hypertension type: essential hypertension Qualified Code(s): I10 - Essential (primary) hypertension - Note Participants: family, surrogate decision-maker, palliative care Summary: Palliative Care revisited Advanced Care Planning was discussed. The diagnosis, prognosis and goals of care were discussed. Dr Pritchard and Dr Carranza also discussed Goal of Care, transition to DNAR. Dr Pritchard confirmed DNAR status. Sultana communicated that her brother "would not desire to continue this manner with poor prognosis". Electing to transition to Hospice, compassionate extubation under Hospice care to promote comfort, manage symptoms at end of life and follow the family for support with grief. *DNAR verified with Sultana *CM notified of [facility] choice for [facility] *Communicated with CCU charge Nanci, and bunk house worker Ifrah. *Tonia Escobar RNair drier machine operator communicated with Father Sathya in relation to assist [facility]. Time Spent (mins): 50
[2020-06-09] MEDS: Phytonadione 10 MG/ML AMP SC SCH (12:05)
--- NOTE | 2020-06-09 13:06 | PRG ---
DATE OF SERVICE: 06/09/2020 SUBJECTIVE: Oli Resendez has not improved at all. OBJECTIVE: VITAL SIGNS: Heart rate is 114, blood pressure 126/51, FiO2 is at 40, respiratory rate is in the teens. LUNGS: Remarkable for coarse equal breath sounds. HEART: Regular rhythm. ABDOMEN: Slightly distended. EXTREMITIES: Without asymmetry. LABORATORY DATA: White count bumped from 28 to 49, hemoglobin is 9.1, and platelets 114,000. Sodium 135, potassium 4.8, chloride 96, bicarb 24, BUN 76, creatinine 3.24. He had 2500 mL dialyzed. IMPRESSION: 1. Fatty liver with cirrhosis and liver synthetic dysfunction. 2. Gastrointestinal bleed with a bleeding ulcer that has been injected. This appears to stop. 3. Hepatorenal syndrome with renal failure. 4. Alcohol withdrawal, on presentation. 5. Critical illness encephalopathy. I really do not feel that he will survive. Family is talking about withdrawing care. Job ID: [id number]
[2020-06-09 13:42] VITALS: TEMP 98.3
--- NOTE | 2020-06-09 14:34 | PDOC.HOSPP ---
- Subjective Encounter Date: 06/09/20 Encounter Time: 11:40 Subjective: on vent, does not awaken girl friend at bedside - Objective Vital Signs & Weight: Vital Signs (12 hours) Temp Pulse Resp Pulse Ox 06/09/20 14:00 15 06/09/20 12:00 98.3 F 11 L 06/09/20 10:55 114 H 06/09/20 10:00 10 L 06/09/20 08:15 119 H 06/09/20 08:00 98.5 F 10 L 100 06/09/20 06:00 12 06/09/20 04:00 12 Weight Admit Weight 210 lb Weight 226 lb 10.163 oz Most Recent Monitor Data Heart Rate from ECG 120 NIBP 86/41 NIBP BP-Mean 56 Respiration from ECG 13 SpO2 100 I&O: 06/08/20 06/09/20 06/10/20 06:59 06:59 06:59 Intake Total 1738 1615.7 100 Output Total 265 172 49 Balance 1473 1443.7 51 Result Diagrams: 06/09/20 03:30 06/09/20 03:30 Hospitalist ROS - Medication Medications: Active Medications Generic Name Dose Route Start Last Admin Trade Name Freq PRN Reason Stop Dose Admin Albuterol/Ipratropium 3 ml 05/31/20 10:30 06/09/20 11:01 Ipratropium/Albuterol Sulfate 3 Ml Neb NEB 3 ml [id number] LAURIE Administration Clotrimazole 0 gm 05/26/20 21:00 06/09/20 08:40 Clotrimazole 1 % Cream 30 Gm Tube TOP 1 applic BID LAURIE Administration Folic Acid 1 mg 05/25/20 09:00 06/09/20 10:48 Folic Acid 1 Mg Tab PO Not Given DAILY LAURIE Hydrocortisone/Aloe 1.5 gm 05/25/20 21:00 06/09/20 08:39 Hydrocortisone 1% Cream 30 Gm Tube TOP 1 applic BID LAURIE Administration Multivitamins 10 ml/ Sodium 510 mls @ 0 mls/hr 06/03/20 12:00 06/08/20 12:59 Chloride IV Not Given 1200 LAURIE KVO Norepinephrine Bitartrate 8 mg 250 mls @ 0 mls/hr 06/05/20 03:15 06/09/20 05:58 / Dextrose/Water IVPB 250 mls INF PRN Administration TITRATE TO SYST >90 Protocol Titrate Ascorbic Acid 500 mg/ Sodium 51 mls @ 102 mls/hr 06/08/20 09:00 06/09/20 08:37 Chloride IVPB 51 mls DAILY LAURIE Administration Fentanyl Citrate 2,000 mcg/ 100 mls @ 0 mls/hr 06/08/20 16:15 06/08/20 16:28 Sodium Chloride IV 100 mls INF LAURIE Administration Protocol Per Protocol Meropenem 500 mg/ Sodium 100 mls @ 200 mls/hr 06/09/20 09:00 06/09/20 08:39 Chloride IVPB 100 mls Q12HR LAURIE Administration Methylprednisolone Sodium Succinate 20 mg 05/28/20 21:00 06/09/20 08:37 Methylprednisolone Sod Succ 40 Mg Vial IVP 20 mg Q12HR LAURIE Administration Metoclopramide HCl 10 mg 06/02/20 18:00 06/09/20 12:06 Metoclopramide Hcl 10 Mg/2 Ml Vial IVP Not Given Q6HR LAURIE Midodrine 10 mg 06/06/20 09:00 06/09/20 10:49 Midodrine Hcl 5 Mg Tab PO Not Given TID LAURIE Ondansetron HCl 4 mg 05/28/20 19:14 05/28/20 19:20 Ondansetron Pf 4 Mg/2 Ml Vial IVP 4 mg Q6H PRN Administration Nausea/Vomiting Pantoprazole Sodium 40 mg 06/06/20 21:00 06/09/20 08:38 Pantoprazole 40 Mg Vial IVP 40 mg BID LAURIE Administration Propofol 1,000 mg 05/29/20 11:45 06/08/20 05:14 Propofol 1,000 Mg/100 Ml Vial IV 06/28/20 11:45 1,000 mg INF PRN Administration TO ACHIEVE GOAL RASS Protocol Sodium Chloride 10 ml 05/25/20 09:00 06/09/20 08:38 Flush - Normal Saline 10 Ml Syringe IVF 10 ml Q12HR LAURIE Administration Thiamine HCl 100 mg 06/04/20 09:00 06/09/20 10:49 Thiamine 100 Mg Tab PER TUBE Not Given DAILY LAURIE Vecuronium [place] 10 mg 05/30/20 11:34 06/02/20 00:12 Vecuronium 10 Mg Vial IV 10 mg Q1H PRN Administration NEUOMUSCULAR BLOCKADE/VENTILAT Venlafaxine HCl 150 mg 05/27/20 09:00 05/29/20 10:10 Venlafaxine Hcl Xr 150 Mg Cap PO 150 mg DAILY LAURIE Administration - Exam General Appearance: ill appearing Eye: scleral icterus ENT: no oropharyngeal lesions, dry oral mucosa Neck: supple, no JVD Heart: RRR, no murmur Respiratory: no wheezes, rales, rhonchi Gastrointestinal: soft, non-tender, non-distended, normal bowel sounds Extremities: no cyanosis, 1+ LE edema Neurological: cranial nerve grossly intact, no focal deficits Hosp A/P (1) Acute respiratory failure with hypoxia Code(s): J96.01 - ACUTE RESPIRATORY FAILURE WITH HYPOXIA Status: Acute (2) PNA (pneumonia) Code(s): J18.9 - PNEUMONIA, UNSPECIFIED ORGANISM Status: Acute Qualifiers: Pneumonia type: aspiration pneumonia Laterality: bilateral (3) Acute renal failure Status: Acute (4) Thrombocytopenia Code(s): D69.6 - THROMBOCYTOPENIA, UNSPECIFIED Status: Chronic (5) Alcohol abuse Code(s): F10.10 - ALCOHOL ABUSE, UNCOMPLICATED Status: Chronic (6) Coagulopathy Status: Chronic (7) Anemia Code(s): D64.9 - ANEMIA, UNSPECIFIED Status: Chronic Qualifiers: Anemia type: unspecified type Qualified Code(s): D64.9 - Anemia, unspecified (8) Hyperlipidemia Code(s): E78.5 - HYPERLIPIDEMIA, UNSPECIFIED Status: Chronic Qualifiers: Hyperlipidemia type: unspecified Qualified Code(s): E78.5 - Hyperlipidemia, unspecified (9) Hypertension Code(s): I10 - ESSENTIAL (PRIMARY) HYPERTENSION Status: Chronic Qualifiers: Hypertension type: essential hypertension Qualified Code(s): I10 - Essential (primary) hypertension (10) Liver cirrhosis, alcoholic Code(s): K70.30 - ALCOHOLIC CIRRHOSIS OF LIVER WITHOUT ASCITES Status: Chronic Qualifiers: Ascites presence: without ascites Qualified Code(s): K70.30 - Alcoholic cirrhosis of liver without ascites (11) Alcoholic hepatitis Code(s): K70.10 - ALCOHOLIC HEPATITIS WITHOUT ASCITES Status: Acute Qualifiers: Ascites presence: without ascites Qualified Code(s): K70.10 - Alcoholic hepatitis without ascites (12) Acute blood loss anemia Code(s): D62 - ACUTE POSTHEMORRHAGIC ANEMIA Status: Acute (13) GI bleed Code(s): K92.2 - GASTROINTESTINAL HEMORRHAGE, UNSPECIFIED Status: Acute Qualifiers: GI bleed type/associated pathology: gastric ulcer Qualified Code(s): K25.4 - Chronic or unspecified gastric ulcer with hemorrhage (14) PUD (peptic ulcer disease) Code(s): K27.9 - PEPTIC ULC, SITE UNSP, UNSP AC OR CHR, W/O HEMOR OR PERF Status: Acute (15) Sepsis Code(s): A41.9 - SEPSIS, UNSPECIFIED ORGANISM Status: Acute Qualifiers: Sepsis type: sepsis due to unspecified organism Sepsis acute organ dysfunction status: with acute organ dysfunction Acute respiratory failure type: with hypoxia Severe sepsis shock status: with septic shock - Plan is on levophed, merrem and vanc, wbc is still elevated and going up, blood cs x4 are -ve so far. protonix, steroids, nebs had egd 06/08, s/p hemaclip for visible vessel in stomach, no varices seen. weaning per pulm advice has recieved a total of 11 prbc this admission, he got 3 ffp's for ongoing oozing and suspected gi bleed 06/05, one dose vit K iv (06/05), oral vit k 10mg daily x 2 very poor prognosis, unlikely to survive this hospitalization. d/w sister and POA over phone and gave full updates (06/04, 06/05. 06/06, 06/07, 06/09) HD as tolerated, sbp around 80-100, on pressors, is on midodrine. sister has decided to have him in comfort care and hospice, she is aware of very poor prognosis, she will come with patients 2 sons this afternoon and then will go for withdrawal of care wants [facility] to be set up, d/w palliative care and staff.
[2020-06-09] MEDS: Multivitamins, Adult 10 ML in Sodium Chloride 0.9% 500 ML IV SCH (14:45)
--- NOTE | 2020-06-09 16:55 | DIS ---
DATE OF ADMISSION: 05/24/2020 DATE OF DISCHARGE: 06/09/2020 DISCHARGE DISPOSITION: Inpatient Hospice. PRIMARY DISCHARGE DIAGNOSES: Acute respiratory failure with hypoxia; aspiration pneumonia; acute renal failure; chronic thrombocytopenia with coagulopathy secondary to cirrhosis; history of chronic alcohol abuse; acute blood loss anemia secondary to coagulopathy; sepsis; dyslipidemia; hypertension; gastrointestinal bleed with gastric ulcer, status post upper endoscopy with hemoclip placement; alcoholic hepatitis, status post transfusion of 11 units of packed cell, 3 units of FFP during this hospitalization. PROCEDURES DONE DURING HOSPITALIZATION: Right upper quadrant ultrasound done showed hepatomegaly with findings suggestive of fatty infiltration, generalized heterogeneity of the liver with numerous tiny hypodensities suggestive of cirrhotic morphology, signs of portal hypertension on the ultrasound. CT of the abdomen and pelvis showed cirrhotic configuration of the liver with multifocal upper abdominal varices, right lung pneumonia. CT chest on 05/25/2020, showed patchy ground- glass opacities throughout left upper lobe and right lung with more rounded opacities in the right lung base. Findings are compatible with multifocal pneumonia. HIDA scan done showed diffuse hepatocellular dysfunction consistent with stated history of acute liver failure. No acute cholecystitis seen. Gallbladder dysfunction/chronic cholecystitis. The patient was intubated on 05/29/[address] Broussard. Echo done on 06/01/2020 showed ejection fraction of 50% to 55%. Chest x-ray done on 06/09/2020 showed perihilar airspace disease. Blood cultures x4, no growth. Two sets were done on 05/25, another two sets on 06/06/2020, none of which grow any organism. Discharge white count of 49.4, H and H of 9 and 26, platelet count 114. His hemoglobin on admission was 7.1, had dropped down to 6.0 on 06/07. MCV on admission was 142. PT, INR, PTT are 27.9, 2.5, and 44. BUN 76, creatinine 3.2 on the day of discharge. Total bilirubin of 7.3 on the day of discharge. Albumin 3.4. Creatinine had gone up to 4.3 on 06/08/2020. BUN had gone up to 123 on 06/08/2020. COVID-19 PCR was not detected on 05/25/2020. HBS antigen nonreactive. HBS antibody nonreactive. Hepatitis B core total antibody nonreactive. Hep C antibody nonreactive. TESSA screen was negative. Smooth muscle antibody titer 7. Antimitochondrial antibody 1.5. Sqte-[id number] DNA IgG antibody 1.6. Plasma alcohol was 101 mg/dL on the day of admission. DISCHARGE PLAN: The patient is being discharged to inpatient hospice. BRIEF COURSE DURING HOSPITALIZATION: The patient initially got admitted on the 25 of May for severe jaundice. The patient had initial total bilirubin of 12.8, hemoglobin of 7.8 g with very elevated MCV on admission. He has had multiple workup done for his liver including CT abdomen and right upper quadrant ultrasound. He had known history of alcohol abuse and had acute hepatic failure on admission. He had coagulopathy in addition. During the course of his stay with workup being done, the patient went into acute respiratory failure and had to be intubated on the . He has had progressive decline in his physical condition. He was evaluated by Dr. Reid for Gastroenterology, Dr. Kam for Infectious Disease, Dr. Broussard for Pulmonology. The patient also had hepatorenal syndrome and was initiated on hemodialysis by Dr. Pritchard/Edmond. He has also had upper endoscopy done and was found to have gastric ulcer which was cauterized on 06/08/2020. The patient has had severe coagulopathy and has had nearly 11 units of packed cell transfusion and 3 units of FFP given to him during his stay here. As his prognosis got worse, his sister, Ms. Weinberg, who is also power of health care attorney for him decided to place him under hospice with withdrawal of care and comfort measures only. He will shortly be withdrawn from the vent and will be placed under [facility]. His overall prognosis is very poor. Please see a [id number] documentation for the day of discharge on [facility]. Job ID: [id number] [facility]
== END 2020-06-09 15:05 | disposition hospice, inpatient (51) | DRG 870 ==
LOC: ERS 19:27 → ERHOLD 22:49 → 2NO 23:30 → IMCU/EMU 05-28 01:30 → CCU 05-29 10:28
PROVIDERS: ADMIT Internal Medicine; ATTEND Internal Medicine
PROC: 30233N1 Transfusion of Nonautologous Red Blood Cells into Peripheral Vein, Percutaneous Approach (ICD-10-PCS; principal; 2020-05-26)
PROC: 5A09457 Assistance with Respiratory Ventilation, 24-96 Consecutive Hours, Continuous Positive Airway Pressure (ICD-10-PCS; 2020-05-28)
PROC: 5A1955Z Respiratory Ventilation, Greater than 96 Consecutive Hours (ICD-10-PCS; 2020-05-29)
PROC: 0BH18EZ Insertion of Endotracheal Airway into Trachea, Via Natural or Artificial Opening Endoscopic (ICD-10-PCS; 2020-05-29)
PROC: 3E033XZ Introduction of Vasopressor into Peripheral Vein, Percutaneous Approach (ICD-10-PCS; 2020-05-30)
PROC: 06HY33Z Insertion of Infusion Device into Lower Vein, Percutaneous Approach (ICD-10-PCS; 2020-06-02)
PROC: 3E1M39Z Irrigation of Peritoneal Cavity using Dialysate, Percutaneous Approach (ICD-10-PCS; 2020-06-02)
PROC: 30233L1 Transfusion of Nonautologous Fresh Plasma into Peripheral Vein, Percutaneous Approach (ICD-10-PCS; 2020-06-06)
PROC: 30233K1 Transfusion of Nonautologous Frozen Plasma into Peripheral Vein, Percutaneous Approach (ICD-10-PCS; 2020-06-06)
PROC: 0W3P8ZZ Control Bleeding in Gastrointestinal Tract, Via Natural or Artificial Opening Endoscopic (ICD-10-PCS; 2020-06-07)
PROC: 3E0G8GC Introduction of Other Therapeutic Substance into Upper GI, Via Natural or Artificial Opening Endoscopic (ICD-10-PCS; 2020-06-07)
DX: A41.9 Sepsis, unspecified organism (principal); K72.00 Acute and subacute hepatic failure without coma; J69.0 Pneumonitis due to inhalation of food and vomit; K76.7 Hepatorenal syndrome; N18.6 End stage renal disease; J80 Acute respiratory distress syndrome; R65.21 Severe sepsis with septic shock; K25.4 Chronic or unspecified gastric ulcer with hemorrhage; N17.9 Acute kidney failure, unspecified; E87.1 Hypo-osmolality and hyponatremia; G93.40 Encephalopathy, unspecified; D62 Acute posthemorrhagic anemia; E87.2 Acidosis; K76.6 Portal hypertension; F10.231 Alcohol dependence with withdrawal delirium; D68.4 Acquired coagulation factor deficiency; D61.818 Other pancytopenia; I12.0 Hypertensive chronic kidney disease with stage 5 chronic kidney disease or end stage renal disease; K70.30 Alcoholic cirrhosis of liver without ascites; Z20.828 Contact with and (suspected) exposure to other viral communicable diseases; Z51.5 Encounter for palliative care; Z66 Do not resuscitate; E78.5 Hyperlipidemia, unspecified; F41.9 Anxiety disorder, unspecified; F32.9 Major depressive disorder, single episode, unspecified; J30.9 Allergic rhinitis, unspecified; F17.220 Nicotine dependence, chewing tobacco, uncomplicated; K31.89 Other diseases of stomach and duodenum; D69.59 Other secondary thrombocytopenia; K80.20 Calculus of gallbladder without cholecystitis without obstruction; K70.10 Alcoholic hepatitis without ascites; M54.5 Low back pain; D63.1 Anemia in chronic kidney disease; K70.0 Alcoholic fatty liver; E83.42 Hypomagnesemia; E87.5 Hyperkalemia; Z88.0 Allergy status to penicillin; Z79.899 Other long term (current) drug therapy; Z78.1 Physical restraint status
CPT/HCPCS: 36415; 36416; 36430; 36600; 71045; 71250; 74177; 76705; 78227; 80048; 80053; 80076; 80202; 81001; 82105; 82140; 82150; 82247; 82390; 82607; 82728; 82746; 82805; 83010; 83516; 83540; 83550; 83605; 83615; 83690; 83735; 83880; 84100; 84484; 85007; 85025; 85027; 85046; 85060; 85610; 85730; 86038; 86140; 86225; 86704; 86706; 86769; 86803; 86850; 86880; 86900; 86901; 87040; 87340; 87635; 90935; 93306; 94002; 94003; 94640; 94660; A9537; C9113; G0257; J0692; J1642; J1644; J1940; J1956; J2060; J2185; J2405; J2704; J2765; J2920; J3010; J3370; J3411; J3430; J3475; J3490; J7030; J7042; J7050; J7070; J7620; P9016; P9047; P9059; Q9967; U0003

== ENCOUNTER 2020-06-09 15:21 | Inpatient (IN) | payer OTHER ==
[2020-06-09 15:35] VITALS: BMI 30.2
[2020-06-09] MEDS ORDERED: Lorazepam 2 MG/ML VIAL SLOW IVP SCH (15:45)
[2020-06-09] MEDS ORDERED: Acetaminophen 325 MG TAB PO PRN (15:47)
[2020-06-09] MEDS ORDERED: Acetaminophen 325 MG Suppository PR PRN (15:48)
[2020-06-09] MEDS ORDERED: Morphine 2 MG/ML VIAL SLOW IVP PRN (15:49)
[2020-06-09] MEDS ORDERED: diphenhydrAMINE 12.5 MG/5 ML UDCUP PO PRN (15:51)
[2020-06-09] MEDS ORDERED: diphenhydrAMINE 50 MG/ML VIAL IVP PRN (15:52)
[2020-06-09] MEDS ORDERED: Haloperidol Lactate 2 MG/ML UDCUP PO PRN (15:56)
[2020-06-09] MEDS ORDERED: Haloperidol Lactate 5 MG/ML VIAL SLOW IVP PRN ×2 (15:57→15:59)
[2020-06-09] MEDS ORDERED: Ondansetron PF 4 MG/2 ML Vial IVP PRN (15:59)
[2020-06-09] MEDS ORDERED: Morphine 2 MG/ML VIAL SLOW IVP SCH (16:00)
[2020-06-09] MEDS ORDERED: Dexamethasone 4 mg/ml Vial SLOW IVP PRN (16:00)
[2020-06-09] MEDS ORDERED: Lorazepam 2 MG/ML VIAL SLOW IVP PRN (16:01)
[2020-06-09] MEDS ORDERED: BIOTENE MOUTH SPRAY 44.3 ML MM PRN (16:02)
[2020-06-09] MEDS ORDERED: Glycopyrrolate 0.2 MG/ML 5 ML SYRINGE SLOW IVP PRN (16:03)
[2020-06-09] MEDS ORDERED: Scopolamine 1.5 mg/72 hour Patch TOP SCH (17:00)
[2020-06-09] MEDS: Lorazepam 2 MG/ML VIAL SLOW IVP PRN (20:05)
[2020-06-09] MEDS: Morphine 2 MG/ML VIAL SLOW IVP PRN (22:15)
[2020-06-10] MEDS: Lorazepam 2 MG/ML VIAL SLOW IVP PRN ×3 (03:24→20:15)
[2020-06-10] MEDS: Morphine 2 MG/ML VIAL SLOW IVP PRN ×2 (07:55→16:08)
[2020-06-10] MEDS: Morphine 2 MG/ML VIAL SLOW IVP SCH ×4 (17:13→22:14)
[2020-06-11 00:12] VITALS: BP 91/45; TEMP 98.1
[2020-06-11] MEDS: Morphine 2 MG/ML VIAL SLOW IVP SCH ×3 (00:39→05:38)
== END 2020-06-11 04:25 | disposition short-term general hospital (02) | DRG 951 ==
LOC: CCU 15:21 → T4-B 20:37
PROVIDERS: ADMIT Internal Medicine Nephrology; ATTEND Internal Medicine Nephrology
DX: Z51.5 Encounter for palliative care (principal); J96.01 Acute respiratory failure with hypoxia; K76.7 Hepatorenal syndrome; N17.1 Acute kidney failure with acute cortical necrosis; J18.9 Pneumonia, unspecified organism; K92.2 Gastrointestinal hemorrhage, unspecified; D68.9 Coagulation defect, unspecified; D62 Acute posthemorrhagic anemia; F32.9 Major depressive disorder, single episode, unspecified; J30.9 Allergic rhinitis, unspecified; F10.10 Alcohol abuse, uncomplicated; K80.20 Calculus of gallbladder without cholecystitis without obstruction; D64.9 Anemia, unspecified; K70.30 Alcoholic cirrhosis of liver without ascites; Z88.0 Allergy status to penicillin; I10 Essential (primary) hypertension; D69.6 Thrombocytopenia, unspecified; E80.6 Other disorders of bilirubin metabolism
CPT/HCPCS: J2060; J2270

== ENCOUNTER 2020-06-11 04:30 | Inpatient (IN) | payer OTHER ==
[2020-06-11 05:35] VITALS: BMI 30.2
[2020-06-11 07:24] VITALS: BP 121/61; TEMP 98
[2020-06-11 07:52] LABS: Anisocytosis MODERATE=16-30 cells (100X) (0-5/hpf); Band 9 % (5-11); Eosinophils 6 % (0-10); Hemoglobin 7.9 g/dL (14.0-18.0); Lymphocytes 7 % (21-51); MDiff Complete? YES; Mean Corpuscular HGB CONC 34.5 g/dL (32.0-36.0); Mean Corpuscular Hemoglobin 33.9 pg (27.0-31.0); Mean Corpuscular Volume 98.1 fL (78.0-98.0); Monocytes 2 % (0-10); Neutrophil 76 % (42-75); Nucleated RBC 1 % (0); Platelet Count 88 thou/uL (130-400); Platelet Morphology Comment Appears Decreased; Poikilocytosis SLIGHT = 6-15 cells (100X) (0-5/hpf); RBC Distribution Width 19.1 % (11.5-14.5); Red Blood Cell (RBC) Count 2.33 mill/uL (4.70-6.10); Toxic Granulation SLIGHT; White Blood Cell (WBC) Count 28.5 thou/uL (4.8-10.8)
[2020-06-11 08:00] LABS: ALT (SGPT) 42 U/L (8-55); AST (SGOT) 96 U/L (5-34); Alkaline Phosphatase 62 U/L (40-110); Anion Gap 28 mmol/L (10-20); Bilirubin, Total 6.5 mg/dL (0.2-1.2); Calc. Creatinine Clearance 18 mL/min (70-130); Calcium 6.6 mg/dL (7.8-10.44); Carbon Dioxide 17 mmol/L (22-29); Chloride 96 mmol/L (98-107); Estimated GFR-MDRD 9; Globulin 2.3 g/dL (2.4-3.5); Glucose 107 mg/dL (70-105); Magnesium 2.9 mg/dL (1.6-2.6); Potassium 5.7 mmol/L (3.5-5.1); Protein, Total 5.3 g/dL (6.0-8.3); Sodium 135 mmol/L (136-145)
[2020-06-11 08:11] LABS: BUN (Urea Nitrogen) 156 mg/dL (8.4-25.7)
[2020-06-11] MEDS ORDERED: Ondansetron PF 4 MG/2 ML Vial IVP PRN (09:51)
[2020-06-11] MEDS ORDERED: Morphine IR Tab 15 MG TAB PO PRN (09:51)
[2020-06-11] MEDS ORDERED: Scopolamine 1.5 mg/72 hour Patch TD PRN (09:51)
[2020-06-11] MEDS ORDERED: Scopolamine 1.5 mg/72 hour Patch TD STA (09:51)
[2020-06-11] MEDS ORDERED: Acetaminophen 650 MG Suppository PR PRN (09:51)
[2020-06-11] MEDS ORDERED: diphenhydrAMINE 50 MG/ML VIAL IVP PRN (09:51)
[2020-06-11] MEDS ORDERED: Lorazepam 2 MG/ML VIAL SLOW IVP PRN (09:51)
[2020-06-11] MEDS ORDERED: Haloperidol Lactate 5 MG/ML VIAL SLOW IVP PRN (09:51)
[2020-06-11] MEDS ORDERED: Scopolamine 1.5 mg/72 hour Patch TD SCH (10:00)
--- NOTE | 2020-06-11 12:15 | PDOC.HHP ---
Hospitalist HPI - History of Present Illness Hospice revoked History of Present Illness: 59-year-old male who was hospitalized recently on May 24, 2020, On that admission patient HIDA scan was negative for any acute cholecystitis, abdomen and pelvis CT scan showed cirrhosis of liver with portal hypertension, CT chest showed groundglass opacity throughout the lung, echocardiography showed EF 50 to 55%, During that admission oncology was following, infectious disease was also consulted and gastroenterology did endoscopy and bleeding vessel was cauterized, pulmonology was managing ventilator. Subsequently family member made him DNR and patient was extubated for comfort care and patient was discharged to inpatient hospice yesterday. During nighttime patient's family member changed his mind and they revoked hospice and patient was admitted to the hospital. As per my report from nursing, patient had a family friend who is working in our hospital gave patient's family member hope of cure and that is why family members change their mind, during nighttime family member wanted to talk to [facility] physician but night physician was not able to talk to them, and with this patient family member revoked hospice and wanted to get more opinion. This morning I spoke with the family member and discussed today's lab as well as prognosis and they again decided to go back to hospice care. Hospitalist ROS - Review of Systems ROS unobtainable: due to mental status - Medication Medications: Allergies Penicillins Allergy (Verified 03/04/19 09:33) Medication Instructions Recorded Confirmed Type Acyclovir 400 mg PO TID 05/25/20 05/25/20 History Clotrimazole 1% Cream [Lotrimin 1% 1 applic TOP BID 05/25/20 05/25/20 History Cream] Desloratadine 5 mg PO DAILY 05/25/20 05/25/20 History Fluticasone Propionate [24 Hour 15.8 ml NS PRN PRN 05/25/20 05/25/20 History Allergy Relief] Folic Acid 1 mg PO DAILY 05/25/20 05/25/20 History Lisinopril 10 mg PO DAILY 05/25/20 05/25/20 History Nebivolol HCl [Bystolic] 5 mg PO DAILY 05/25/20 05/25/20 History Nebivolol HCl [Bystolic] 5 mg PO DAILY 05/25/20 05/25/20 History Venlafaxine HCl [Venlafaxine HCl 150 mg PO DAILY 05/25/20 05/25/20 History ER] Venlafaxine HCl [Venlafaxine HCl 150 mg PO DAILY 05/25/20 05/25/20 History ER] Resuscitation Status - Order Detail: 06/11/20 09:51 Resuscitation Status Routine Resuscitation Status: DNAR: NO Resuscitation Discussed with: discussed with family [facility] [place] History - Past Medical History Other Medical History: Cirrhosis of liver with portal hypertension Peptic ulcer disease Alcohol abuse Anxiety and depression Hypertension Allergic rhinitis - Past Surgical History Other Surgical History: EGD - Family History Other Family History: No strong family history of premature coronary artery disease stroke or cancer - Social History Other Social History: Patient is heavy alcoholic, he dips tobacco, no other illicit drug abuse - Exam General Appearance: ill appearing Eye: scleral icterus ENT: dry oral mucosa Neck: no JVD Heart: RRR, no murmur, no gallops Heart - other findings: Tachycardia Respiratory: rales, wheezes Respiratory - other findings: Tachypneic Gastrointestinal: soft Gastrointestinal - other findings: Ascites Extremities: 1+ LE edema Skin: normal turgor Neurological - other findings: Unable to assess Psychiatric: somnolent, lethargic Hospitalist Results - Labs Result Diagrams: 06/11/20 07:18 06/11/20 07:18 Lab results: WBC 28.5 thou/uL (4.8-10.8) H 06/11/20 07:18 Hgb 7.9 g/dL (14.0-18.0) L 06/11/20 07:18 Hct 22.9 % (42.0-52.0) L 06/11/20 07:18 MCV 98.1 fL (78.0-98.0) H 06/11/20 07:18 Plt Count 88 thou/uL (130-400) L 06/11/20 07:18 Band Neuts % (Manual) 9 % (5-11) 06/11/20 07:18 Sodium 135 mmol/L (136-145) L 06/11/20 07:18 Potassium 5.7 mmol/L (3.5-5.1) H 06/11/20 07:18 Chloride 96 mmol/L (98-107) L 06/11/20 07:18 Carbon Dioxide 17 mmol/L (22-29) L 06/11/20 07:18 BUN 156 mg/dL (8.4-25.7) H 06/11/20 07:18 Creatinine 6.19 mg/dL (0.7-1.3) H 06/11/20 07:18 Glucose 107 mg/dL (70-105) H 06/11/20 07:18 Calcium 6.6 mg/dL (7.8-10.44) L 06/11/20 07:18 Total Bilirubin 6.5 mg/dL (0.2-1.2) H 06/11/20 07:18 AST 96 U/L (5-34) H 06/11/20 07:18 ALT 42 U/L (8-55) 06/11/20 07:18 Alkaline Phosphatase 62 U/L (40-110) 06/11/20 07:18 Serum Total Protein 5.3 g/dL (6.0-8.3) L 06/11/20 07:18 Albumin 3.0 g/dL (3.5-5.0) L 06/11/20 07:18 Hospitalist H&P A/P - Problem (1) Acute respiratory failure with hypoxia Code(s): J96.01 - ACUTE RESPIRATORY FAILURE WITH HYPOXIA Status: Acute (2) Alcohol abuse Code(s): F10.10 - ALCOHOL ABUSE, UNCOMPLICATED Status: Chronic (3) Anemia Code(s): D64.9 - ANEMIA, UNSPECIFIED Status: Chronic Qualifiers: Anemia type: unspecified type Qualified Code(s): D64.9 - Anemia, unspecified (4) Cholelithiasis Code(s): K80.20 - CALCULUS OF GALLBLADDER W/O CHOLECYSTITIS W/O OBSTRUCTION Status: Chronic Qualifiers: Cholelithiasis location: gallbladder Cholecystitis presence: without cholecystitis (5) Coagulopathy Status: Chronic (6) GI bleed Code(s): K92.2 - GASTROINTESTINAL HEMORRHAGE, UNSPECIFIED Status: Resolved Qualifiers: GI bleed type/associated pathology: gastric ulcer Qualified Code(s): K25.4 - Chronic or unspecified gastric ulcer with hemorrhage (7) Hyperlipidemia Code(s): E78.5 - HYPERLIPIDEMIA, UNSPECIFIED Status: Chronic Qualifiers: Hyperlipidemia type: unspecified Qualified Code(s): E78.5 - Hyperlipidemia, unspecified (8) Hypertension Code(s): I10 - ESSENTIAL (PRIMARY) HYPERTENSION Status: Chronic Qualifiers: Hypertension type: essential hypertension Qualified Code(s): I10 - Essential (primary) hypertension (9) Liver cirrhosis, alcoholic Code(s): K70.30 - ALCOHOLIC CIRRHOSIS OF LIVER WITHOUT ASCITES Status: Chronic Qualifiers: Ascites presence: without ascites Qualified Code(s): K70.30 - Alcoholic cirrhosis of liver without ascites (10) Liver failure Status: Acute Qualifiers: Liver failure chronicity: acute Hepatic coma status: with hepatic coma Qualified Code(s): K72.01 - Acute and subacute hepatic failure with coma (11) PUD (peptic ulcer disease) Code(s): K27.9 - PEPTIC ULC, SITE UNSP, UNSP AC OR CHR, W/O HEMOR OR PERF Status: Acute (12) Thrombocytopenia Code(s): D69.6 - THROMBOCYTOPENIA, UNSPECIFIED Status: Chronic (13) Hepatorenal syndrome Code(s): K76.7 - HEPATORENAL SYNDROME Status: Acute (14) Acute renal failure Status: Acute Qualifiers: Acute renal failure type: with acute renal cortical necrosis Qualified Code(s): N17.1 - Acute kidney failure with acute cortical necrosis (15) Acquired hyperbilirubinemia Code(s): E80.6 - OTHER DISORDERS OF BILIRUBIN METABOLISM Status: Acute (16) Acute blood loss anemia Code(s): D62 - ACUTE POSTHEMORRHAGIC ANEMIA Status: Acute (17) Alcoholic hepatitis Code(s): K70.10 - ALCOHOLIC HEPATITIS WITHOUT ASCITES Status: Acute Qualifiers: Ascites presence: without ascites Qualified Code(s): K70.10 - Alcoholic hepatitis without ascites (18) PNA (pneumonia) Code(s): J18.9 - PNEUMONIA, UNSPECIFIED ORGANISM Status: Acute Qualifiers: Pneumonia type: aspiration pneumonia Laterality: bilateral - Plan Plan: Today I spent almost 30 minutes bedside to discuss with the patient's medical p ower of environmental attorney and other family member and again I have discussed the entire previous hospital course and current condition, patient's renal function continued to deteriorate, he is still not improving, he is completely encephalopathic tachypneic, he is in his terminal life, I do not expect his re covery, I have discussed with the family member about prognosis and goals of care and finally family member decided about putting him back to hospice care. Hospice order is written. Patient is discharged to inpatient hospice,
--- NOTE | 2020-06-11 12:22 | PDOC.DS.DS ---
Provider - Provider Date of Admission: 06/11/20 04:30 Date of Discharge: 06/11/20 Admitting Provider: Kane Clement MD Primary Care Physician: Mary Ann Longo DO Course - Hospital Course Hospital Course: Patient was admitted in the hospital recently, he was discharged to inpatient hospice yesterday, during nighttime family member revoked hospice and patient was readmitted in hospital, again patient's family member decided putting him back to inpatient hospice. Resuscitation Status: 06/11/20 09:51 Resuscitation Status Routine Resuscitation Status: DNAR: NO Resuscitation Discussed with: discussed with family MPOA - Labs Lab Results: 06/11/20 07:18 06/11/20 07:18 Abnormal Lab Results - Last 48 hrs 06/11/20 07:18: Sodium 135 L, Potassium 5.7 H, Chloride 96 L, Carbon Dioxide 17 L, Anion Gap 28 H, BUN 156 H, Creatinine 6.19 H, Calcium 6.6 L, Magnesium 2.9 H, Total Bilirubin 6.5 H, AST 96 H, Serum Total Protein 5.3 L, Albumin 3.0 L, Globulin 2.3 L 06/11/20 07:18: WBC 28.5 H, RBC 2.33 L, Hgb 7.9 L, Hct 22.9 L, MCV 98.1 H, MCH 33.9 H, RDW 19.1 H, Plt Count 88 L, Neutrophils % (Manual) 76 H, Lymphocytes % (Manual) 7 L, Nucleated RBCs # (Man) 1 H, Plt Morphology Comment Appears Decreased L, Anisocytosis MODERATE=16-30 cells H - Physical Exam Vitals: Vital Signs (12 hours) Temp Pulse Resp BP Pulse Ox 06/11/20 09:00 95 06/11/20 07:23 98.0 F 105 H 22 H 121/61 97 06/11/20 04:53 98.4 F 101 H 18 121/59 L 96 Weight Weight 223 lb Physical Exam: The patient was seen and examined on the day of discharge. Problem - Problem (1) Acute respiratory failure with hypoxia Code(s): J96.01 - ACUTE RESPIRATORY FAILURE WITH HYPOXIA Status: Acute (2) Alcohol abuse Code(s): F10.10 - ALCOHOL ABUSE, UNCOMPLICATED Status: Chronic (3) Anemia Code(s): D64.9 - ANEMIA, UNSPECIFIED Status: Chronic Qualifiers: Anemia type: unspecified type Qualified Code(s): D64.9 - Anemia, unspecified (4) Cholelithiasis Code(s): K80.20 - CALCULUS OF GALLBLADDER W/O CHOLECYSTITIS W/O OBSTRUCTION Status: Chronic Qualifiers: Cholelithiasis location: gallbladder Cholecystitis presence: without cholecystitis (5) Coagulopathy Status: Chronic (6) GI bleed Code(s): K92.2 - GASTROINTESTINAL HEMORRHAGE, UNSPECIFIED Status: Resolved Qualifiers: GI bleed type/associated pathology: gastric ulcer Qualified Code(s): K25.4 - Chronic or unspecified gastric ulcer with hemorrhage (7) Hyperlipidemia Code(s): E78.5 - HYPERLIPIDEMIA, UNSPECIFIED Status: Chronic Qualifiers: Hyperlipidemia type: unspecified Qualified Code(s): E78.5 - Hyperlipidemia, unspecified (8) Hypertension Code(s): I10 - ESSENTIAL (PRIMARY) HYPERTENSION Status: Chronic Qualifiers: Hypertension type: essential hypertension Qualified Code(s): I10 - Essential (primary) hypertension (9) Liver cirrhosis, alcoholic Code(s): K70.30 - ALCOHOLIC CIRRHOSIS OF LIVER WITHOUT ASCITES Status: Chronic Qualifiers: Ascites presence: without ascites Qualified Code(s): K70.30 - Alcoholic cirrhosis of liver without ascites (10) Liver failure Status: Acute Qualifiers: Liver failure chronicity: acute Hepatic coma status: with hepatic coma Qualified Code(s): K72.01 - Acute and subacute hepatic failure with coma (11) PUD (peptic ulcer disease) Code(s): K27.9 - PEPTIC ULC, SITE UNSP, UNSP AC OR CHR, W/O HEMOR OR PERF Status: Acute (12) Thrombocytopenia Code(s): D69.6 - THROMBOCYTOPENIA, UNSPECIFIED Status: Chronic (13) Hepatorenal syndrome Code(s): K76.7 - HEPATORENAL SYNDROME Status: Acute (14) Acute renal failure Status: Acute Qualifiers: Acute renal failure type: with acute renal cortical necrosis Qualified Code(s): N17.1 - Acute kidney failure with acute cortical necrosis (15) Acquired hyperbilirubinemia Code(s): E80.6 - OTHER DISORDERS OF BILIRUBIN METABOLISM Status: Acute (16) Acute blood loss anemia Code(s): D62 - ACUTE POSTHEMORRHAGIC ANEMIA Status: Acute (17) Alcoholic hepatitis Code(s): K70.10 - ALCOHOLIC HEPATITIS WITHOUT ASCITES Status: Acute Qualifiers: Ascites presence: without ascites Qualified Code(s): K70.10 - Alcoholic hepatitis without ascites (18) PNA (pneumonia) Code(s): J18.9 - PNEUMONIA, UNSPECIFIED ORGANISM Status: Acute Qualifiers: Pneumonia type: aspiration pneumonia Laterality: bilateral Plan - Discharge Medications Home Medications: Medication Instructions Recorded Confirmed Type Acyclovir 400 mg PO TID 05/25/20 06/11/20 History Clotrimazole 1% Cream [Lotrimin 1% 1 applic TOP BID 05/25/20 06/11/20 History Cream] Desloratadine 5 mg PO DAILY 05/25/20 06/11/20 History Fluticasone Propionate [24 Hour 15.8 ml NS PRN PRN 05/25/20 06/11/20 History Allergy Relief] Folic Acid 1 mg PO DAILY 05/25/20 06/11/20 History Lisinopril 10 mg PO DAILY 05/25/20 06/11/20 History Nebivolol HCl [Bystolic] 5 mg PO DAILY 05/25/20 06/11/20 History Venlafaxine HCl [Venlafaxine HCl 150 mg PO DAILY 05/25/20 06/11/20 History ER] Allergies: Penicillins Allergy (Verified 03/04/19 09:33) - Discharge Instructions Activity:: No Restrictions Nourishment:: No Restrictions Therapies:: Not Applicable Equipment/Supplies:: Not Applicable IV Therapy:: Not Applicable - Follow up Plan Referrals: Mary Ann Longo DO [Primary Care Provider] - Disposition: [facility] Quality - Care Measures CORE MEASURES:: N/A
[2020-06-14] MEDS ORDERED: Scopolamine 1.5 mg/72 hour Patch TD PRN (09:00)
== END 2020-06-11 13:46 | disposition hospice, inpatient (51) | DRG 441 ==
LOC: T4-B 04:30
PROVIDERS: ADMIT Internal Medicine; ATTEND Internal Medicine
DX: K72.01 Acute and subacute hepatic failure with coma (principal); K76.7 Hepatorenal syndrome; J96.01 Acute respiratory failure with hypoxia; K25.4 Chronic or unspecified gastric ulcer with hemorrhage; J18.9 Pneumonia, unspecified organism; D68.9 Coagulation defect, unspecified; N17.9 Acute kidney failure, unspecified; D62 Acute posthemorrhagic anemia; G93.40 Encephalopathy, unspecified; K70.30 Alcoholic cirrhosis of liver without ascites; K80.20 Calculus of gallbladder without cholecystitis without obstruction; K70.10 Alcoholic hepatitis without ascites; Z66 Do not resuscitate; F41.9 Anxiety disorder, unspecified; F32.9 Major depressive disorder, single episode, unspecified; I10 Essential (primary) hypertension; J30.9 Allergic rhinitis, unspecified; F10.10 Alcohol abuse, uncomplicated; D64.9 Anemia, unspecified; E78.5 Hyperlipidemia, unspecified; D69.6 Thrombocytopenia, unspecified; E80.6 Other disorders of bilirubin metabolism; Z79.899 Other long term (current) drug therapy; Z51.5 Encounter for palliative care; Z88.0 Allergy status to penicillin
CPT/HCPCS: 36415; 80053; 83735; 85025

== ENCOUNTER 2020-06-11 13:53 | Inpatient (IN) | payer OTHER ==
[2020-06-11] MEDS ORDERED: Morphine 2 MG/ML VIAL SLOW IVP PRN (15:35)
[2020-06-11] MEDS ORDERED: Lorazepam 2 MG/ML VIAL SLOW IVP PRN (15:35)
[2020-06-11] MEDS ORDERED: Scopolamine 1.5 mg/72 hour Patch TOP SCH (16:00)
[2020-06-11] MEDS: Morphine 2 MG/ML VIAL SLOW IVP SCH ×2 (18:26→21:26)
[2020-06-11 21:00] VITALS: TEMP 98.2
[2020-06-11 22:31] VITALS: BMI 28.1
[2020-06-12] MEDS: Morphine 2 MG/ML VIAL SLOW IVP SCH ×4 (00:26→09:02)
[2020-06-12 08:23] VITALS: BP 89/52
== END 2020-06-12 09:21 | disposition expired | DRG 951 ==
LOC: T4-B 13:53
PROVIDERS: ADMIT Internal Medicine Nephrology; ATTEND Internal Medicine Nephrology
DX: Z51.5 Encounter for palliative care (principal); Z66 Do not resuscitate; K72.01 Acute and subacute hepatic failure with coma; J96.01 Acute respiratory failure with hypoxia; K25.4 Chronic or unspecified gastric ulcer with hemorrhage; K76.7 Hepatorenal syndrome; N17.0 Acute kidney failure with tubular necrosis; J69.0 Pneumonitis due to inhalation of food and vomit; K76.6 Portal hypertension; D68.9 Coagulation defect, unspecified; D62 Acute posthemorrhagic anemia; F41.9 Anxiety disorder, unspecified; F32.9 Major depressive disorder, single episode, unspecified; J30.9 Allergic rhinitis, unspecified; I10 Essential (primary) hypertension; D64.9 Anemia, unspecified; K80.20 Calculus of gallbladder without cholecystitis without obstruction; E78.5 Hyperlipidemia, unspecified; K70.30 Alcoholic cirrhosis of liver without ascites; D69.6 Thrombocytopenia, unspecified; E80.6 Other disorders of bilirubin metabolism; K70.10 Alcoholic hepatitis without ascites; F10.10 Alcohol abuse, uncomplicated; Z88.0 Allergy status to penicillin; Z79.899 Other long term (current) drug therapy; Z87.11 Personal history of peptic ulcer disease
CPT/HCPCS: J2270